=== PATIENT | male | born 1955 | race Caucasian/White ===

== ENCOUNTER 2018-07-21 05:04 | Emergency (ER) | payer OTHER, SELFPAY ==
[2018-07-21 05:10] VITALS: BP 119/69; PULSE 81; RESP 16; TEMP 36.3; O2SAT 99; BMI 25.4
--- NOTE | 2018-07-21 05:12 | DI.RAD.S_ITS ---
PROCEDURE: XR CHEST 1V INDICATIONS: syncope, vomiting,diarrhea TECHNIQUE: One view of the chest was acquired. COMPARISON: [facility], , CHEST 1VW (PORTABLE), 04/07/2014, 13:36. FINDINGS: Surgical changes and devices: None. Lungs and pleura: No pleural effusions or pneumothorax. Lungs are clear. Mediastinum: Mediastinal contours appear normal. Heart size is normal. Bones and chest wall: No suspicious bony lesions. Overlying soft tissues appear unremarkable. IMPRESSION: No acute cardiopulmonary disease process. Dictated by: Sofya Mcclure MD, PhD on 07/21/2018 at 7:25 Approved by: Sofya Mcclure MD, PhD on 07/21/2018 at 7:26
--- NOTE | 2018-07-21 05:17 | ED_ITS ---
HPI - Syncope General Chief Complaint: Syncope Stated Complaint: Syncope Time Seen by Provider: 07/21/18 05:11 Source: patient and EMS Mode of arrival: EMS Limitations: no limitations History of Present Illness HPI narrative: This is a 62-year-old male comes to the emergency department. Patient states that this evening he woke up from sleep feeling very queasy and started having vomiting and diarrhea. He did not have any black or bloody stools. He did not have any abdominal pain but felt very nauseated. Patient denies any fevers. He denies any chest pain or shortness of breath. He states he has not had syncopal episodes in the past. He states he was in the bathroom he was sitting on the floor he just finished vomiting and was waiting in case he had vomited again. I states that he did feel anything coming on other than queasiness and nauseous but woke up and could hear his yelling at him with able to respond for about a minute. His states that she thought he was out for about 2 min. He states EMS thought it was about 1/2 to 1 min. Patient denies any headache with vision changes. Cough cold or congestion. He denies any urinary symptoms. He states that they had dinner tonight and had several gas , no on else that he is aware of his had similar symptoms. He did have about 5 alcoholic drinks this evening. He states his number of drinks can very aware anywhere from 2 or 3-7 depending on the night. Related Data Previous Rx's Medication Instructions Recorded clindamycin HCl 300 mg PO Q6H #40 cap 12/24/16 Review of Systems Review of Systems All systems reviewed & are unremarkable except as noted in HPI and below Constitutional Denies chills and Denies fever(s) ENT Ears, Nose, Mouth, and Throat: Denies neck pain Cardiovascular Denies chest pain, Reports syncope, Denies edema, Denies irregular heart rhythm , Denies radiating jaw, neck or arm pain, Denies palpitations, Denies dyspnea and Denies dyspnea on exertion Respiratory Denies chest congestion, Denies cough, Denies excessive phlegm production, Denies dyspnea and Denies dyspnea on exertion Gastrointestinal Gastrointestinal: Denies abdominal pain, Denies melena, Denies hematochezia, Denies change in bowel habits, Reports diarrhea, Reports nausea and Reports vomiting Genitourinary Denies difficulty with ejaculations, Denies dysuria, Denies flank pain, Denies urinary frequency and Denies urinary hesitancy Musculoskeletal Denies back pain and Denies neck pain Integumentary/Breasts Denies rash Neurologic Reports syncope Endocrine Denies palpitations PFSH Medical History Obstructive sleep apnea of adult (Chronic) Primary insomnia (Chronic) Snoring (Resolved) Hyperlipidemia (Chronic) Hypertension (Chronic) Ischemic heart disease (Chronic) Surgical History History of heart artery stent (Acute) Family History Brother Hx of CABG Social History Smoking Status: Never smoker alcohol intake: current substance use type: does not use Exam Narrative Exam Narrative: GEN: well nourished, well appearing male, alert and oriented x 3, patient appears to be in no acute distress. HEENT: Atraumatic, pupils are equal round reactive to light, extraocular movements are intact, nares are clear, Throat is clear without any exudates, erythema, tonsillar enlargement or uvular deviation HEART: Regular rate and rhythm without murmur, clicks, rubs. Pulses are equal in upper and lower extremities LUNGS:Lungs clear to auscultation, no wheezes, rales, crackles, chest moves symmetrically ABD:bowel sounds normal, soft, non-tender, no guarding, rebound, rigidity, no masses noted, no hepatosplenomegaly, no bruit or pulsatile mass. :No CVA tenderness MSCL: Non-tender, no muscle atrophy, muscles strength 5/5 upper and lower extremities, full range of motion, normal gait NEURO:CN 2-12 intact, sensation normal Initial Vital Signs Initial Vital Signs: Vital Signs Temperature 97.4 F L 07/21/18 05:10 Pulse Rate 81 07/21/18 05:10 Respiratory Rate 16 07/21/18 05:10 Blood Pressure 119/69 07/21/18 05:10 Pulse Oximetry 99 07/21/18 05:10 Course Orders Ordered: Discontinued Medications Sodium Chloride (Normal Saline 0.9%) 1,000 mls @ 1,000 mls/hr IV BOLUS ONE Stop: 07/21/18 06:10 Last Infusion: 07/21/18 06:44 Dose: 0 mls/hr Admin: 07/21/18 05:36 Dose: 1,000 mls/hr Vital Signs - 8 hr 07/21/18 05:10 07/21/18 05:28 Temperature 97.4 F L Pulse Rate 81 Pulse Rate [Orthostatic Lying] 67 Pulse Rate [Orthostatic Sitting] 70 Pulse Rate [Orthostatic Standing] 72 Respiratory Rate 16 Blood Pressure 119/69 Blood Pressure [Orthostatic Lying] 111/64 Blood Pressure [Orthostatic Sitting] 113/61 Blood Pressure [Orthostatic Standing] 118/68 Pulse Oximetry 99 MDM - Syncope Lab Data Result diagrams: 07/21/18 04:59 07/21/18 04:59 Lab Results 07/21/18 07/21/18 07/21/18 Range/Units 04:59 04:59 04:59 WBC 9.6 (4.5-11.0) X10^3/uL RBC 4.54 (4.5-5.9) X10^6/uL Hgb 14.7 (13.5-17.5) g/dL Hct 43.3 (41-53) % MCV 95.5 (80-100) fL MCH 32.4 (26-34) PG MCHC 34.0 (30-36) % RDW 13.3 (11.6-14.8) % Plt Count 217 (150-400) X10^3/uL Neut % (Auto) 68.6 (50-75) % Lymph % (Auto) 19.5 L (25-40) % [place] % (Auto) 9.7 (3-14) % Eos % (Auto) 1.8 L (2-4) % Baso % (Auto) 0.4 (0-2) % Neut # (Auto) 6600 H (9404-8806) /uL PT 9.8 L (10.1-12.7) SECONDS INR 0.9 (0.9-1.3) Sodium 138 (137-145) mmol/L Potassium 3.7 (3.4-5.1) mmol/L Chloride 95 L (98-107) mmol/L Carbon Dioxide 29 (22-32) mmol/L BUN 21 H (9-20) mg/dL Creatinine 0.80 (0.66-1.25) mg/dL Estimated GFR > 60.0 (>60) mL/min BUN/Creatinine Ratio 26.3 H (6-22) Glucose 99 (80-110) mg/dL Calcium 9.5 (8.4-10.2) mg/dL Total Bilirubin 0.4 (0.2-1.3) mg/dL AST 40 (17-59) IU/L ALT 43 (21-72) IU/L Alkaline Phosphatase 54 (38-126) U/L Total Creatine Kinase 137 (55-170) U/L CK-MB (CK-2) 3.54 H (<2.37) ng/mL CK-MB (CK-2) Rel Index 2.6 (1.5-5.0) % Troponin I 0.021 (0.01-0.034) ng/mL Total Protein 7.5 (6.3-8.2) g/dL Albumin 4.7 (3.5-5.0) g/dL Globulin 2.8 (1.7-4.1) g/dL Albumin/Globulin Ratio 1.7 (1.0-2.8) Imaging Data Chest x-ray: Attestation: I personally reviewed and interpreted this imaging study as follows: My impression: No acute process, no infiltrate, no pneumothorax. Mediastinum does not appear widened. Cardiac silhouette appears normal. ECG Data Attestation: I personally reviewed and interpreted this ECG as follows: Prior ECG tracings: available for review Interpretation: Sinus rhythm with rate of 66, pr of 166, qrs of [address] qtc [address] NO [address] elevation/depression noted. Patient does have V1V2 Q wave. Lead III appears changed. EKG otherwise s similar to prior from 04/07/14 MDM Narrative Medical decision making narrative: Patient's CBC, coags and CMP appear appropriate. Patient's chest x-ray shows no acute process. EKG does not show any major changes. Appears similar to 04/07/2014. Patient's orthostatics were negative in the department. Patient clarified that he actually had vomiting but did not have any diarrhea just felt like he might have some. His states that he had been sitting on the floor for about 10 min after throwing up went to stand up had to sit back down and then passed out for a minute or 2, he slumped against the shower and did not hit his head. Patient and states that he did not hit his head. Patient feel ing much better. Orthostatics negative and patient asymptomatic. Patient plan for follow up but discussed reasons to return and in particular if recurrent symptoms. Discharge Plan Departure Patient Disposition: Home Clinical Impression: Syncope Discharge Date/Time: 07/21/18 06:46 Interventions: ED Discharge Assessment Last Done: 07/21/18 06:45 Instructions: DI for Syncope in Adults (Fainting) Activity Restrictions/Additional Instructions: Follow-up with your primary care provider in the next 2-3 days for recheck. Return to the emergency department for recurrent symptoms, if you have recurrent episodes of passing out, chest pain, shortness of breath, persistent vomiting, black or bloody stools, abdominal pain or other new or concerning symptoms You may continue home medications as prescribed. Prescriptions: No Action clindamycin HCl 300 MG capsule 300 mg PO Q6H Qty: 40 RF: 0
[2018-07-21 05:19] LABS: Add Manual Diff / Slide Review NO; Basophils Percent Auto 0.4 % (0-2); Eosinophils Percent Auto 1.8 % (2-4); Hematocrit 43.3 % (41-53); Hemoglobin 14.7 g/dL (13.5-17.5); Lymphocytes Percent Auto 19.5 % (25-40); Mean Corpuscular Hemoglobin 32.4 PG (26-34); Mean Corpuscular Volume 95.5 fL (80-100); Monocytes Percent Auto 9.7 % (3-14); Neutrophils Absolute Auto 6600 /uL (3000-5900); Neutrophils Percent Auto 68.6 % (50-75); Platelet Count 217 X10^3/uL (150-400); Red Blood Cell Count 4.54 X10^6/uL (4.5-5.9); Red Cell Distribution Width 13.3 % (11.6-14.8); White Blood Cell Count 9.6 X10^3/uL (4.5-11.0)
[2018-07-21 05:20] LABS: INR 0.9 (0.9-1.3); Prothrombin Time 9.8 SECONDS (10.1-12.7)
[2018-07-21 05:24] LABS: Alanine Aminotransferase 43 IU/L (21-72); Albumin 4.7 g/dL (3.5-5.0); Albumin Globulin Ratio 1.7 (1.0-2.8); Alkaline Phosphatase 54 U/L (38-126); Aspartate Aminotransferase 40 IU/L (17-59); BUN Creatinine Ratio 26.3 (6-22); Bilirubin Total 0.4 mg/dL (0.2-1.3); Blood Urea Nitrogen 21 mg/dL (9-20); Calcium 9.5 mg/dL (8.4-10.2); Carbon Dioxide 29 mmol/L (22-32); Chloride 95 mmol/L (98-107); Creatine Kinase 137 U/L (55-170); Estimated Glomerular Filt Rate > 60.0 mL/min (>60); Globulin 2.8 g/dL (1.7-4.1); Glucose 99 mg/dL (80-110); HEMOLYSIS 38 (0-50); Potassium 3.7 mmol/L (3.4-5.1); Sodium 138 mmol/L (137-145); Total Protein 7.5 g/dL (6.3-8.2)
[2018-07-21 05:28] VITALS: BP 111/64; BP 113/61; BP 118/68; PULSE 67; PULSE 70; PULSE 72
[2018-07-21 05:35] LABS: Troponin I 0.021 ng/mL (0.01-0.034)
[2018-07-21] MEDS: SODIUM CHLORIDE 0.9% 1,000 ML 1000 ML IV (05:36)
[2018-07-21 05:39] LABS: CKMB % Relative Index 2.6 % (1.5-5.0); Creatine Kinase MB 3.54 ng/mL (<2.37)
[2018-07-21 06:30] VITALS: BP 115/59; PULSE 79; RESP 16; O2SAT 100
== END 2018-07-21 06:46 | disposition home or self-care (01) ==
PROVIDERS: Emergency Provider Emergency Medicine
DX: R55 Syncope and collapse (principal)
CPT/HCPCS: 71045; 80053; 82550; 82553; 84484; 85025; 85610; 93005; 96360; 99283; 99285

== ENCOUNTER 2020-07-14 09:28 | Emergency (ER) | payer OTHER, MEDICARE, SELFPAY ==
[2020-07-14] VITALS (11 sets, daily range): BP systolic 132–160; BP diastolic 69–85; PULSE 67–89; RESP 12–18; TEMP 36.7; O2SAT 95–100; BMI 25.6
--- NOTE | 2020-07-14 09:41 | DI.RAD.S_ITS ---
PROCEDURE: XR SHOULDER LT MIN 2V INDICATIONS: fell and mybe brole arm TECHNIQUE: 3 views of the shoulder were acquired. COMPARISON: [facility], CR, XR SHOULDER LT 1V, 07/14/2020, 11:00. FINDINGS: Bones: Anterior inferior dislocation. There is a Hill-Sachs deformity. Irregularity of the inferior glenoid. No suspicious bony lesions. Visualized ribs appear intact. Soft tissues: No suspicious soft tissue calcifications. IMPRESSION: Anterior inferior dislocation of the glenohumeral joint. There is a Hill-Sachs deformity of the humeral head. Irregularity of the inferior glenoid is suspicious for Bank[place] lesion. Dictated by: Mitchell Davis M.D. on 07/14/2020 at 11:45 Approved by: Mitchell Davis M.D. on 07/14/2020 at 11:52
--- NOTE | 2020-07-14 09:41 | ED.UPPEXIN ---
HPI - Extremity Injury (Upper) General Chief Complaint: Extremity Injury, Upper Stated Complaint: fell and maybe broken arm left Time Seen by Provider: 07/14/20 09:32 Source: patient Mode of arrival: Ambulatory History of Present Illness HPI narrative: Patient injured his left shoulder at work. This morning just prior to arrival was stepping onto a boat and slipped and left shoulder hit a boat seat. Denies denies hitting head or neck. Denies any other injuries. Patient is right handed. No recent orthopedic surgery. No current regular orthopedist. Complains of pain in left shoulder. No numbness tingling or weakness. complaint: injury to: left and shoulder Related Data Home Medications Medication Instructions Recorded Confirmed Respironics RemStar CPAP #1 ea 01/14/19 07/15/19 Allergies Allergy/AdvReac Type Severity Reaction Status Date / Time No Known Drug Allergies Allergy Unverified 07/15/19 13:33 Review of Systems Review of Systems Narrative: GENERAL: Denies chills, fatigue, malaise, fever, sweats. HEENT: Denies sinus pain, ear pain, sore throat, difficulty swallowing RESPIRATORY: Denies dyspnea, cough CARDIOVASCULAR: Denies chest pain, palpitations, edema, GASTROINTESTINAL: Denies nausea, vomiting, abdominal pain, diarrhea, constipation, melena. : Denies dysuria, frequency, hematuria MUSCULOSKELETAL: denies muscle complains of bony pain SKIN: Denies rash, skin lesions NEUROLOGIC: Denies weakness, headache, numbness, change in speech, confusion PSYCHIATRIC: No SI or HI or hallucinations ROS Unobtainable: All systems reviewed & are unremarkable except as noted in HPI and below Patient History Medical History Hyperlipidemia (Chronic) Hypertension (Chronic) Ischemic heart disease (Chronic) Obstructive sleep apnea of adult (Chronic) Primary insomnia (Resolved) Snoring (Inactive) Surgical History History of heart artery stent (Acute) Family History Brother Hx of CABG Social History marital status: details: to Misty, lives in [place] household members: spouse lives independently: Yes caregiver/support person: No housing: house coral/hoahaoism: Qu[employer] Smoking Status: Never smoker alcohol intake: current substance use type: does not use Smoking Status: Never smoker alcohol intake frequency: 3 or more drinks per day Substance Use Type: does not use Exam Narrative Exam Narrative: GENERAL: patient appears stated age. Well-nourished, well-developed patient, in no distress, not toxic not dyspneic HEAD: Normocephalic. EYES: Pupils equal round and reactive. No scleral icterus. No injection no discharge ENT: Mucous membranes moist. No drooling no tongue elevation no trismus no malocclusion NECK: Trachea midline. Non tender CARDIOVASCULAR: Regular rate and rhythm without murmurs, gallops, or rubs. RESPIRATORY: Clear to auscultation. Breath sounds equal bilaterally. No wheezes, rales, or rhonchi. GASTROINTESTINAL: Abdomen soft, non-tender, nondistended. EXTREMITIES: Shirt removed. There is deformity at the left shoulder/drop-off. Nontender wrist elbow and hand. Limb is warm soft and pink. Strong lamp replacer in radial pulse with light touch intact to shoulder and fingertips and thumb. BACK: Nontender without deformity or crepitance. No flank tenderness. NEURO: AOx4. SKIN: Warm and dry PSYCH: Not anxious, is cooperative Initial Vital Signs Initial Vital Signs: Vital Signs Temperature 98.0 F 07/14/20 09:36 Pulse Rate 89 07/14/20 09:36 Respiratory Rate 12 07/14/20 09:36 Blood Pressure 160/76 H 07/14/20 09:36 Pulse Oximetry 100 07/14/20 09:36 Procedures Orthopedic Joint Reduction Joint #1: Time Out Performed: Yes Side: left Joint Reduction Location: shoulder Analgesia: none and other (Patient agreed: Use of pain medication Dilaudid) Shoulder Technique Used (if applicable): traction/counter-traction Technique used: traction/counter-traction Post-reduction neuro exam: intact Post-reduction vascular: intact Post Reduction X-Ray Obtained: Yes Post Reduction X-Ray Results: reduced Patient Tolerated Procedure: Well Additional Comments: Applied sling Course Course Course Narrative: No complications with reduction. No hypotension or hypoxia. Patient remained awake alert entire procedure with minimal pain 09/18 Orders Ordered: ED Orders 07/14/20 09:41 XR shoulder LT min 2V Stat 07/14/20 10:58 XR shoulder LT 1V Stat Discontinued Medications Hydromorphone HCl (Dilaudid) 1 mg IV NOW ONE Stop: 07/14/20 09:40 Last Admin: 07/14/20 09:45 Dose: 1 mg Documented by: JANE Hydromorphone HCl (Dilaudid) 1 mg IV NOW ONE Stop: 07/14/20 10:26 Last Admin: 07/14/20 10:43 Dose: 1 mg Documented by: JANE Hydromorphone HCl (Dilaudid) 1 mg IV NOW ONE Stop: 07/14/20 10:46 Last Admin: 07/14/20 10:51 Dose: 1 mg Documented by: JANE Ondansetron HCl (Zofran) 4 mg IV NOW ONE Stop: 07/14/20 09:40 Last Admin: 07/14/20 09:46 Dose: 4 mg Documented by: JANE Reevaluation(s) Reevaluation #1: Patient feels much better after reduction. Time: 11:58 Vital Signs Vital signs: Vital Signs - 8 hr 07/14/20 09:36 07/14/20 10:30 07/14/20 10:43 Temperature 98.0 F Pulse Rate 89 69 67 Respiratory Rate 12 14 Blood Pressure 160/76 H 139/69 Pulse Oximetry 100 98 96 07/14/20 10:58 Temperature Pulse Rate 86 Respiratory Rate 18 Blood Pressure 146/76 H Pulse Oximetry 97 MDM - Extremity Injury (Upper) Differential Diagnosis Differential diagnosis: Likely dislocation of shoulder and fracture of humerus Imaging Data Extremity x-ray #1: Radiologist's Impression: [address] [address] XRay Report Signed Patient: Trevor Hernandez MMR#: [id number] : 4Acct:[id number] Age/Sex: 64 / MDate of Service: 07/14/20 Loc: ED Accession Number: [id number] Procedure: XR shoulder LT 1V Ordering Provider: Ethan Steve MD PROCEDURE: XR SHOULDER LT 1V INDICATIONS: Post reduction TECHNIQUE: Single AP views of the shoulder were acquired. COMPARISON: [facility], CR, XR SHOULDER LT MIN 2V, 07/14/2020, 8:58. FINDINGS: Bones: Status post interval reduction of previously dislocated left humeral head. Post reduction alignment appears anatomic on this single AP view. No fractures visualized. Degenerative changes of the left acromioclavicular joint. Acromioclavicular and coracoclavicular intervals are maintained. No suspicious bony lesions. Visualized ribs appear intact. Soft tissues: No suspicious soft tissue calcifications. IMPRESSION: Status post interval reduction of previously dislocated left humeral head back into anatomic alignment based on single AP view. No acute fracture seen. Dictated by: Tang Metz M.D. on 07/14/2020 at 10:23 Approved by: Tang Metz M.D. on 07/14/2020 at 10:25 [facility] Narrative Medical decision making narrative: Appropriate for discharge home and follow-up for workmen's comp. Will give referral to our on-call orthopedist. Not toxic at discharge. 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 Discharge Plan Departure Patient Disposition: Home Clinical Impression: Closed dislocation of left shoulder Instructions: DI for Shoulder Dislocation Activity Restrictions/Additional Instructions: Keep in sling until office recheck with Orthopedics. Did not raise left hand above your head. Call today for appointment for orthopedic office time for your shoulder. Return if worse if any questions or concerns. Prescriptions: No Action (DME) Respironics RemStar CPAP Qty: 1 RF: 0 Referrals: Rosana Velez MD [Primary Care Provider] - Naveen Guzman MD [Physician] - Stand Alone Forms: Work Release Note
[2020-07-14] MEDS: HYDROMORPHONE 1 MG INJ IV ×3 (09:45→10:51)
[2020-07-14] MEDS: ONDANSETRON 4 MG/2 ML INJ IV (09:46)
--- NOTE | 2020-07-14 10:52 | PC.NURSE ---
Asssited MD with reduction. Pt medicated with Dilaudid. Tolerated well.
--- NOTE | 2020-07-14 10:58 | DI.RAD.S_ITS ---
PROCEDURE: XR SHOULDER LT 1V INDICATIONS: Post reduction TECHNIQUE: Single AP views of the shoulder were acquired. COMPARISON: [facility], CR, XR SHOULDER LT MIN 2V, 07/14/2020, 8:58. FINDINGS: Bones: Status post interval reduction of previously dislocated left humeral head. Post reduction alignment appears anatomic on this single AP view. No fractures visualized. Degenerative changes of the left acromioclavicular joint. Acromioclavicular and coracoclavicular intervals are maintained. No suspicious bony lesions. Visualized ribs appear intact. Soft tissues: No suspicious soft tissue calcifications. IMPRESSION: Status post interval reduction of previously dislocated left humeral head back into anatomic alignment based on single AP view. No acute fracture seen. Dictated by: Tang Metz M.D. on 07/14/2020 at 10:23 Approved by: Tang Metz M.D. on 07/14/2020 at 10:25
== END 2020-07-14 12:26 | disposition home or self-care (01) ==
PROVIDERS: Emergency Provider Emergency Medicine; PCP Internal Medicine
DX: S43.005A Unspecified dislocation of left shoulder joint, initial encounter (principal); W01.198A Fall on same level from slipping, tripping and stumbling with subsequent striking against other object, initial encounter; Y99.0 Civilian activity done for income or pay
CPT/HCPCS: 36415; 73020; 73030; 96374; 96375; 96376; 99284; J1170; J2405

== ENCOUNTER → 2020-09-30 13:08 | Outpatient (CLI) | payer MEDICARE, OTHER, SELFPAY ==
[2020-09-30] MEDS: COVID-19 VACC #1, MRNA(MOD) 100 MCG/0.5 ML VIAL IM (13:16)
== END ==
PROVIDERS: PCP Internal Medicine; Visit Provider Internal Medicine
DX: Z23 Encounter for immunization (principal)
CPT/HCPCS: 0011A; 91301

== ENCOUNTER → 2020-10-28 14:16 | Outpatient (CLI) | payer MEDICARE, OTHER, SELFPAY ==
[2020-10-28] MEDS: COVID-19 VACC #2, MRNA(MOD) 100 MCG/0.5 ML VIAL IM (14:20)
== END ==
PROVIDERS: PCP Internal Medicine; Visit Provider Internal Medicine
DX: Z23 Encounter for immunization (principal)
CPT/HCPCS: 0012A; 91301

== ENCOUNTER → 2021-06-28 09:36 | Outpatient (CLI) | payer MEDICARE, OTHER, SELFPAY ==
[2021-06-28 10:59] LABS: COVID19 -Nasal RAPID Negative (Negative)
== END ==
PROVIDERS: PCP Internal Medicine; Referring Provider Surgery; Visit Provider Surgery
DX: Z01.812 Encounter for preprocedural laboratory examination (principal); Z20.822 Contact with and (suspected) exposure to COVID-19
CPT/HCPCS: 87635; C9803

== ENCOUNTER 2021-06-29 13:23 | Day surgery (SDC) | payer MEDICARE, OTHER, SELFPAY ==
--- NOTE | 2021-06-29 | PATH_ITS ---
[facility] Accession Number: [id number] . 01 Material submitted: . PART A: colon - ASCENDING COLON POLYP PART B: colon - DESCENDING COLON POLYP . 02 Diagnosis: A. Ascending Colon Polyp, Biopsy: Tubular adenoma. . B. Descending Colon Polyp, Biopsy: Tubular adenoma. MRV 07/04/2021 1036 Local . 02 Electronically signed: . Keron Dumont MD, PhD, Pathologist NPI- [id number] . 01 Gross description: . Part A: ASCENDING COLON POLYP: Received in formalin are 2 fragment(s) of castaneda, soft tissue measuring 0.4 x 0.2 x 0.2 cm to 0.1 x 0.1 x 0.1 cm submitted entirely in 1 cassette(s) Part B: DESCENDING COLON POLYP: Received in formalin are 2 fragment(s) of castaneda, soft tissue measuring 0.2 x 0.2 x 0.2 cm to 0.2 x 0.2 x 0.2 cm submitted entirely in 1 cassette(s) /JARET 06/30/2021 0447 Local . 02 Pathologist provided ICD-10: D12.2, D12.4 . 02 CPT . 357268, [id number] Performed at: 01 [facility] [address] [facility], [place], [place] [id number] MD Hayes Elliott MD Phone: [phone] Performed at: 02 [facility] [address] [place], [place] [id number] MD Viki Ramos MD Phone: [phone]
[2021-06-29 13:41] VITALS: BP 136/68; PULSE 61; RESP 15; TEMP 36.6; O2SAT 97; BMI 25.0
[2021-06-29] MEDS: LACTATED RINGERS 1,000 ML 200 ML IV (13:54)
[2021-06-29 13:55] VITALS: BMI 25.0
--- NOTE | 2021-06-29 14:28 | P.HP_ITS ---
History of Present Illness History of Present Illness Date Patient Seen: 06/29/21 Time Patient Seen: 14:28 Chief complaint: SDC Narrative: The patient presents for colorectal sreening. Previous colonoscopy 2010 demonstrated benign. No personal or family history of colon cancer. On further history denies any recent gastrointestinal symptoms. No nausea, vomiting, abdominal pain, loss of appetite, unexplained weight loss, change in bowel habits, diarrhea, constipation, melena, hematochezia, or bright red blood per rectum. 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) Obstructive sleep apnea of adult Primary insomnia Snoring Surgical History History of heart artery stent Family & Social History Family History Brother Hx of CABG Social History: household members spouse lives independently Yes caregiver/support person No Tobacco & Substance use: Smoking Status Never smoker alcohol intake current alcohol intake frequency 3 or more drinks per day Substance Use Type does not use Meds Home Medications and Allergies Home Medications Medication Instructions Recorded Confirmed Type amlodipine 5 mg tablet 5 mg PO DAILY 12/21/20 05/17/21 History aspirin 81 mg tablet 81 mg PO DAILY 12/21/20 05/17/21 History atorvastatin 80 mg tablet 80 mg PO DAILY 12/21/20 05/17/21 History cetirizine 10 mg capsule (Zyrtec) 10 mg PO DAILY PRN MDD 30 mg 12/21/20 05/17/21 History chlorthalidone 25 mg tablet 25 mg PO DAILY 12/21/20 05/17/21 History lisinopril 40 mg tablet 40 mg PO DAILY 12/21/20 05/17/21 History nitroglycerin 0.4 mg sublingual 0.4 mg SUBLINGUAL ONCE PRN 12/21/20 05/17/21 History tablet pantoprazole 20 mg tablet,delayed 20 mg PO DAILY 12/21/20 05/17/21 History release [employer] Auto CPAP 05/17/21 05/17/21 History sodium,potassium,mag sulfates 17.5 See Rx Instructions PO .COMPLEX 05/25/21 Rx gram-3.13 gram-1.6 gram oral soln #354 ml (Suprep Bowel Prep Kit) Allergies Allergy/AdvReac Type Severity Reaction Status Date / Time No Known Drug Allergies Allergy Unverified 05/17/21 09:02 Exam Vital Signs (past 8 hours): - 06/29/21 13:41 Temperature 97.9 F Pulse Rate 61 Respiratory Rate 15 Blood Pressure 136/68 Pulse Oximetry 97 Oxygen Delivery Method Room Air Narrative Exam Narrative: Constitutional-he is oriented to person, place and time. No apparent distress Cardiovascular- regular rate, no peripheral edema Pulmonary-unlabored respiratory effort, no audible wheezing Abdominal-soft, non-tender, non-distended Musculoskeletal-no cyanosis or clubbing Neurological-nonfocal, normal strength throughout, Skin-warm and dry Assessment & Plan Assessment and plan (1) Personal history of colonic polyps: Status: Acute Assessment & Plan narrative: The patient requires colorectal screening and colonoscopy is recommended. Technical details were discussed. Risks, benefits, alternatives explained. Risks including but not limited to myocardial infarction, aspiration, bleeding, pain, missed lesion, incomplete examination, need for further radiographic studies, colonic perforation, and need for major abdominal surgery were discussed. All questions were answered to their satisfaction, and they are in agreement with this plan. Time Spent With Patient Critical Care time: I spent a total of [] minutes of critical care time on this patient's care today; this time is exclusive of procedural time.
--- NOTE | 2021-06-29 14:54 | P.OP.COLON_ITS ---
Operative Date/Time/Diagnoses Date of procedure: 06/29/21 Time of procedure: 14:54 Pre-op diagnosis: personal history of colonic polyps Post-op diagnosis: same Procedure & Clinicians Study performed: Colonoscopy Same procedure as scheduled: Yes Indications: Personal history of colonic polyp Surgeon: Nando Lujan Procedure Notes Procedure in detail: Medications: Conscious sedation using 4mg IV midazolam and 100mcg IV of fentanyl The history and physical was performed/updated and the patient is ASA class is 2. The procedure was discussed in detail with the patient. Potential risks complications including infection, bleeding, missed diagnosis, perforation, need for surgery, and were explained. Their questions were answered and informed consent was obtained. Patient was brought to the procedure room and placed standard monitoring equipment. The patient's vital signs were monitored continuously throughout the entire procedure. Prior to starting time-out was performed. The patient was placed in the left lateral recumbent position. Procedural sedation was administered. Examination began with a thorough inspection of the perianal area there was no evidence of fissures, fistulae, external hemorrhoids or cutaneous m alignancy. The colonoscopy scope was then placed into the anal canal and was advanced to the cecum, which was identified by the ileocecal valve, the appendiceal orifice and the confluence of the taenia. The scope was then slowly withdrawn examining colon thoroughly in all directions, irrigating it of any residual stool. FINDINGS 1. Less than 1 cm polyp ascending colon removed biopsy forceps 2. Less than 1 cm polyp descending colon removed biopsy forceps The patient tolerated the procedure well. They will be discharged once criteria are met. The prep was of fair quality. The withdrawl time was 10 minutes. The sedation time was 20minutes. Specimen(s): other (Ascending and descending colon polyps) Complications: none Impression: Colonic polyps Post-procedure Recommendations: Colonoscopy in 5 years Disposition: same day surgery
[2021-06-29] MEDS: MIDAZOLAM 5 MG/5 ML VIAL IV (14:55)
[2021-06-29] MEDS: fentaNYL 250 MCG/5 ML INJ IV (14:55)
[2021-06-29 14:57] VITALS: BP 129/65; PULSE 75; RESP 21; TEMP 36.8; O2SAT 99
[2021-06-29 15:02] VITALS: BP 139/67; PULSE 68; RESP 17; TEMP 36.8; O2SAT 100
== END 2021-06-29 15:11 | disposition home or self-care (01) ==
PROVIDERS: PCP Internal Medicine; Referring Provider Surgery; Visit Provider Surgery
PROC: 0DJD8ZZ Inspection of Lower Intestinal Tract, Via Natural or Artificial Opening Endoscopic (ICD-10-PCS; CPT 45378; principal; 2021-06-29 14:30)
DX: Z12.11 Encounter for screening for malignant neoplasm of colon (principal); Z86.010 Personal history of colon polyps; I10 Essential (primary) hypertension; G47.33 Obstructive sleep apnea (adult) (pediatric); K21.9 Gastro-esophageal reflux disease without esophagitis; D12.2 Benign neoplasm of ascending colon; D12.4 Benign neoplasm of descending colon
CPT/HCPCS: 45380; 99152; J2250; J3010

== ENCOUNTER → 2022-03-14 14:18 | Outpatient (CLI) | payer MEDICARE, OTHER, SELFPAY ==
[2022-03-14 14:54] LABS: Add Manual Diff / Slide Review NO; Basophils Absolute Auto 0 /uL (0-100); Basophils Percent Auto 0.5 % (0-2); Eosinophils Absolute Auto 100 /uL (0-450); Eosinophils Percent Auto 1.3 % (2-4); Hematocrit 38.6 % (41-53); Hemoglobin 13.1 g/dL (13.5-17.5); Lymphocytes Absolute Auto 1300 /uL (1100-4500); Lymphocytes Percent Auto 20.9 % (25-40); Mean Corpuscular Hemoglobin 33.6 PG (26-34); Mean Corpuscular Volume 98.7 fL (80-100); Monocytes Absolute Auto 500 /uL (0-900); Monocytes Percent Auto 7.3 % (3-14); Neutrophils Absolute Auto 4400 /uL (1500-7000); Platelet Count 164 X10^3/uL (150-400); Red Blood Cell Count 3.91 X10^6/uL (4.5-5.9); Red Cell Distribution Width 14.8 % (11.6-14.8); White Blood Cell Count 6.3 X10^3/uL (4.5-11.0)
[2022-03-14 15:09] LABS: Alanine Aminotransferase 29 IU/L (<50); Albumin 4.3 g/dL (3.5-5.0); Albumin Globulin Ratio 1.7 (1.0-2.8); Alkaline Phosphatase 60 U/L (38-126); Aspartate Aminotransferase 31 IU/L (17-59); BUN Creatinine Ratio 17.8 (6-22); Bilirubin Total 0.5 mg/dL (0.2-1.3); Blood Urea Nitrogen 16 mg/dL (9-20); C-Reactive Protein Quant < 0.5 mg/dL (<1.0); Calcium 9.2 mg/dL (8.4-10.2); Carbon Dioxide 27 mmol/L (22-32); Chloride 101 mmol/L (98-107); Estimated Glomerular Filt Rate > 60 mL/min (>60); Globulin 2.6 g/dL (1.7-4.1); Glucose 120 mg/dL (80-110); HEMOLYSIS < 15 (0-50); Sodium 135 mmol/L (137-145); Total Protein 6.9 g/dL (6.3-8.2)
[2022-03-14 15:10] LABS: Erythrocyte Sedimentation Rate 7 MM/HR (0-15)
== END ==
PROVIDERS: PCP Student in an Organized Health Care Education/Training Program; Referring Provider Specialist/Technologist Athletic Trainer; Visit Provider Specialist/Technologist Athletic Trainer
DX: R77.8 Other specified abnormalities of plasma proteins (principal)
CPT/HCPCS: 36415; 80053; 85025; 85651; 86140

== ENCOUNTER → 2022-03-21 13:21 | Outpatient (CLI) | payer MEDICARE, OTHER, SELFPAY ==
--- NOTE | 2022-03-21 13:24 | DI.RAD.S_ITS ---
PROCEDURE: XR BONE SURVEY INDICATIONS: assess for myeloma lesions TECHNIQUE: Multiple views obtained of various bony structures as described below. COMPARISON: None. FINDINGS: Skull (lateral): No suspicious bony lesions. No fractures. Thoracic spine (AP, lateral): No suspicious bony lesions. No acute vertebral body compression fractures. Lumbar spine (AP, lateral): No suspicious bony lesions. No acute vertebral body compression fractures. Mild endplate osteophytes. Mild diffuse disc height loss and moderate disc height loss L1-2. Heavy atherosclerotic calcification of the aorta. Pelvis (AP): No suspicious bony lesions. No fractures. Overlying soft tissues appear unremarkable. Right and left humeri (AP): No suspicious bony lesions. No fractures. Overlying soft tissues appear unremarkable. Right and left femurs (AP): No suspicious bony lesions. No fractures. Overlying soft tissues appear unremarkable. IMPRESSION: 1. No visible lytic lesions. If there is continued concern for subtle myeloma lesion, consider bone Marrow MRI. 2. Mild lumbar degeneration. 3. Atherosclerotic aortic calcification. Dictated by: Yajaira Machado M.D. on 03/21/2022 at 17:03 Approved by: Yajaira Machado M.D. on 03/21/2022 at 17:07
[2022-03-21 14:50] LABS: Add Manual Diff / Slide Review NO; Basophils Absolute Auto 0 /uL (0-100); Basophils Percent Auto 0.5 % (0-2); Eosinophils Absolute Auto 100 /uL (0-450); Eosinophils Percent Auto 1.5 % (2-4); Hematocrit 38.7 % (41-53); Hemoglobin 13.3 g/dL (13.5-17.5); Lymphocytes Absolute Auto 1400 /uL (1100-4500); Lymphocytes Percent Auto 23.1 % (25-40); Mean Corpuscular HGB Conc 34.3 % (30-36); Mean Corpuscular Hemoglobin 33.8 PG (26-34); Mean Corpuscular Volume 98.5 fL (80-100); Monocytes Absolute Auto 300 /uL (0-900); Monocytes Percent Auto 5.7 % (3-14); Neutrophils Absolute Auto 4100 /uL (1500-7000); Neutrophils Percent Auto 69.2 % (50-75); Platelet Count 171 X10^3/uL (150-400); Red Blood Cell Count 3.93 X10^6/uL (4.5-5.9); Red Cell Distribution Width 14.9 % (11.6-14.8); White Blood Cell Count 5.9 X10^3/uL (4.5-11.0)
[2022-03-21 14:57] LABS: Appearance Urine UA CLEAR; Bilirubin Urine UA NEGATIVE (NEGATIVE); Color Urine UA YELLOW; Glucose Urine UA NEGATIVE (Negative); Ketones Urine UA NEGATIVE (NEGATIVE); Leukocyte Esterase Urine UA NEGATIVE (NEGATIVE); Nitrite Urine UA NEGATIVE (Negative); Occult Blood Urine UA NEGATIVE (Negative); Protein Urine UA NEGATIVE (Negative); Urobilinogen Urine UA 0.2 E.U./dL (0.2)
[2022-03-21 15:07] LABS: Bacteria Urine None Seen; Culture Indicated Urine Cult Not Indicated; RBC Urine None Seen (0-5/HPF); Squamous Epithelial Cell Urine 0-1 /HPF (0-5/HPF); WBC Urine 0-1/HPF (0-5/HPF)
[2022-03-21 15:07] LABS: Alanine Aminotransferase 30 IU/L (<50); Albumin 4.4 g/dL (3.5-5.0); Alkaline Phosphatase 55 U/L (38-126); Aspartate Aminotransferase 34 IU/L (17-59); BUN Creatinine Ratio 19.3 (6-22); Bilirubin Total 0.5 mg/dL (0.2-1.3); Blood Urea Nitrogen 17 mg/dL (9-20); Carbon Dioxide 24 mmol/L (22-32); Chloride 102 mmol/L (98-107); Estimated Glomerular Filt Rate > 60 mL/min (>60); Globulin 2.6 g/dL (1.7-4.1); Glucose 112 mg/dL (80-110); Potassium 3.9 mmol/L (3.4-5.1); Sodium 138 mmol/L (137-145)
[2022-03-21 15:08] LABS: Albumin Globulin Ratio 1.7 (1.0-2.8); HEMOLYSIS < 15 (0-50)
[2022-03-22 14:12] LABS: Free Lambda Lt Chains,Serum 15.1 mg/L (5.7-26.3)
[2022-03-23 13:10] LABS: Immunoglobulin A, Serum 179 mg/dL (61-437); Immunoglobulin G,Serum 907 mg/dL (603-1613); Immunoglobulin M, Serum 53 mg/dL (20-172)
[2022-03-23 14:10] LABS: Albumin 4.1 g/dL (2.9-4.4); Alpha-1-Globulin 0.3 g/dL (0.0-0.4); Alpha-2-Globulin 0.6 g/dL (0.4-1.0); Gamma Globulin 0.9 g/dL (0.4-1.8); Globulin Total 2.4 g/dL (2.2-3.9); Protein, Total 6.5 g/dL (6.0-8.5)
[2022-03-28 10:09] LABS: IGA 179; IGG 907
[2022-03-28 10:10] LABS: IGM 53
== END ==
PROVIDERS: PCP Student in an Organized Health Care Education/Training Program; Referring Provider Internal Medicine Medical Oncology; Visit Provider Internal Medicine Medical Oncology
DX: D47.2 Monoclonal gammopathy (principal); M47.816 Spondylosis without myelopathy or radiculopathy, lumbar region; I70.0 Atherosclerosis of aorta
CPT/HCPCS: 36415; 77075; 80053; 81001; 82784; 83883; 84155; 84165; 85025; 86334; 86335

== ENCOUNTER → 2022-03-23 10:57 | Outpatient (CLI) | payer MEDICARE, OTHER, SELFPAY ==
[2022-03-27 12:11] LABS: M-Spike % Not Observed % (Not Observed); Protein, Total, 24 hr urine 141 mg/24 hr (30-150); Total Urine Protein 4.7 mg/dL (Not Estab.)
== END ==
PROVIDERS: PCP Student in an Organized Health Care Education/Training Program; Referring Provider Internal Medicine Medical Oncology; Visit Provider Internal Medicine Medical Oncology
DX: D47.2 Monoclonal gammopathy (principal)
CPT/HCPCS: 84156; 84166

== ENCOUNTER → 2022-07-17 11:53 | Outpatient (CLI) | payer MEDICARE, OTHER, SELFPAY ==
[2022-07-17 12:47] LABS: Add Manual Diff / Slide Review NO; Basophils Absolute Auto 0 /uL (0-100); Basophils Percent Auto 0.5 % (0-2); Eosinophils Absolute Auto 100 /uL (0-450); Hematocrit 37.9 % (41-53); Hemoglobin 12.8 g/dL (13.5-17.5); Lymphocytes Absolute Auto 1100 /uL (1100-4500); Lymphocytes Percent Auto 19.3 % (25-40); Mean Corpuscular HGB Conc 33.9 % (30-36); Mean Corpuscular Hemoglobin 34.7 PG (26-34); Mean Corpuscular Volume 102.3 fL (80-100); Monocytes Absolute Auto 300 /uL (0-900); Monocytes Percent Auto 5.6 % (3-14); Neutrophils Absolute Auto 4200 /uL (1500-7000); Neutrophils Percent Auto 73.6 % (50-75); Platelet Count 191 X10^3/uL (150-400); Red Cell Distribution Width 15.1 % (11.6-14.8); White Blood Cell Count 5.7 X10^3/uL (4.5-11.0)
[2022-07-17 13:09] LABS: Erythrocyte Sedimentation Rate 7 MM/HR (0-15)
[2022-07-17 13:25] LABS: Alanine Aminotransferase 39 IU/L (<50); Albumin 4.1 g/dL (3.5-5.0); Albumin Globulin Ratio 1.6 (1.0-2.8); Alkaline Phosphatase 62 U/L (38-126); Aspartate Aminotransferase 36 IU/L (17-59); BUN Creatinine Ratio 18.4 (6-22); Bilirubin Total 0.6 mg/dL (0.2-1.3); Blood Urea Nitrogen 16 mg/dL (9-20); C-Reactive Protein Quant < 0.5 mg/dL (<1.0); Calcium 9.1 mg/dL (8.4-10.2); Carbon Dioxide 26 mmol/L (22-32); Chloride 103 mmol/L (98-107); Estimated Glomerular Filt Rate > 60 mL/min (>60); Globulin 2.6 g/dL (1.7-4.1); Glucose 105 mg/dL (80-110); HEMOLYSIS < 15 (0-50); Potassium 4.2 mmol/L (3.4-5.1); Sodium 137 mmol/L (137-145); Total Protein 6.7 g/dL (6.3-8.2)
== END ==
PROVIDERS: PCP Student in an Organized Health Care Education/Training Program; Referring Provider Specialist/Technologist Athletic Trainer; Visit Provider Specialist/Technologist Athletic Trainer
DX: L40.50 Arthropathic psoriasis, unspecified (principal)
CPT/HCPCS: 36415; 80053; 85025; 85651; 86140

== ENCOUNTER 2022-11-08 14:44 | Emergency (ER) | payer MEDICARE, OTHER, SELFPAY ==
[2022-11-08 15:17] VITALS: BP 168/74; PULSE 74; RESP 16; TEMP 37.3; O2SAT 96; BMI 26.4
[2022-11-08] MEDS: OXYMETAZOLINE NASAL SPRAY 15 ML 2 SPRAYS NASAL (15:25)
--- NOTE | 2022-11-08 16:12 | ED.EPISTAXIS ---
HPI - Epistaxis General Chief complaint: Nasal Problem Stated complaint: Nose won't stop bleeding Time Seen by Provider: 11/08/22 15:51 Source: patient Mode of arrival: Ambulatory History of Present Illness HPI Narrative: This is a pleasant 67-year-old gentleman who presents to the emergency department with left-sided epistaxis that started at 14:15 today unprovoked when he bent over to pick something up. Patient wears a CPA at night P, states for the last 2 weeks he is had some dried blood in his nose when he blows his nose in the morning. He denies recent illness, denies recent trauma, states that the bleeding just kept coming from his left naris and so he decided to come in. He denies dizziness, lightheadedness, anticoagulation at baseline, states that he had a history of a cardiac stent in 2013 but was off anticoagulants by 2015. Related Data Home Medications Medication Instructions Recorded Confirmed amlodipine 5 mg tablet 5 mg PO DAILY for high BP 12/21/20 10/10/22 aspirin 81 mg tablet 81 mg PO DAILY for CV prophylaxis 12/21/20 10/10/22 atorvastatin 80 mg tablet 80 mg PO DAILY 12/21/20 10/10/22 chlorthalidone 25 mg tablet 25 mg PO DAILY diuretic for high BP 12/21/20 10/10/22 lisinopril 40 mg tablet 40 mg PO DAILY 12/21/20 10/10/22 nitroglycerin 0.4 mg sublingual 0.4 mg sublingual ONCE PRN chest 12/21/20 10/10/22 tablet pain pantoprazole 20 mg tablet,delayed 20 mg PO DAILY on empty stomach 12/21/20 10/10/22 release [employer] Auto CPAP 05/17/21 08/01/22 calcipotriene 0.005 1 applic topical BID 03/21/22 10/10/22 %-betamethasone 0.064 % topical cream cholecalciferol (vitamin D3) 50 50 mcg PO DAILY 03/21/22 10/10/22 mcg (2,000 unit) capsule (Vitamin D3) clobetasol 0.05 % topical cream 1 applic topical BID 03/21/22 10/10/22 folic acid 1 mg tablet 1 mg PO DAILY 03/21/22 10/10/22 methotrexate sodium 2.5 mg tablet 20 mg PO QWEEK 03/21/22 10/10/22 Allergies Allergy/AdvReac Type Severity Reaction Status Date / Time No Known Drug Allergies Allergy Verified 11/08/22 15:19 Review of Systems Review of Systems ROS Unobtainable: All systems reviewed & are unremarkable except as noted in HPI and below Patient History Medical History Allergic rhinosinusitis GERD (gastroesophageal reflux disease) Hyperlipidemia Hypertension 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) Obstructive sleep apnea of adult Primary insomnia Snoring Surgical History History of heart artery stent Family History Brother Hx of CABG Social History marital status: details: to [place], lives [place] household members: spouse lives independently: Yes caregiver/support person: No housing: house coral/restorationism: [place] Smoking Status: Never smoker alcohol intake: current substance use type: does not use Smoking Status: Never smoker alcohol intake frequency: 3 or more drinks per day Substance Use Type: does not use Exam Narrative Exam Narrative: Reviewed vitals signs and nursing notes. General: cooperative, comfortable, in no acute distress, well groomed HEENT: symmetrical facial expressions, moist mucous membranes, patient had Afrin and nasal clamp for 30 minutes, status post clamp removal, no further bleeding, area of erythema in the very anterior Kiesselbach plexus region without vessel associated with it. No further bleeding or clots, patient was able to blow his nose without any further bleeding and has patency of bilateral nares, no sinus tenderness to palpation, denies any illness symptoms Neuro: normal speech and cognition, A&O x3, ambulatory, clear speech Psych: mental status is grossly normal, congruent mood, normal affect, pleasant and cooperative Initial Vital Signs Initial Vital Signs: Vital Signs Temperature 99.1 F 11/08/22 15:17 Pulse Rate 74 11/08/22 15:17 Respiratory Rate 16 11/08/22 15:17 Blood Pressure 168/74 H 11/08/22 15:17 Pulse Oximetry 96 11/08/22 15:17 Oxygen Delivery Method Room Air 11/08/22 15:17 Course Orders Ordered: Discontinued Medications Oxymetazoline HCl (Oxymetazoline Nasal [place] 15 Ml) 2 sprays NASAL NOW ONE Stop: 11/08/22 15:21 Last Admin: 11/08/22 15:25 Dose: 2 sprays Documented By: NIKKI Vital Signs Vital signs: Vital Signs - 8 hr 11/08/22 15:17 Temperature 99.1 F Pulse Rate 74 Respiratory Rate 16 Blood Pressure 168/74 H Pulse Oximetry 96 Oxygen Delivery Method Room Air MDM - Epistaxis MDM Narrative Medical decision making narrative: Chief Complaint: left epistaxis Independent historian: Patient Differential diagnoses include but are not limited to: Posterior epistaxis, anterior superficial epistaxis, vascular injury I have independently reviewed the patient's vital signs and nursing notes as well as prior records if available. Patient had resolution of his epistaxis after Afrin and nasal clamping for 30 minutes, no bleeding down his posterior pharynx, he was observed, ambulatory and was able to blow his nose without any further bleeding, he is neurologically intact, not anticoagulated, without any symptoms at all. Will discharge home with recommendation to follow up with ear nose and throat if this is recurrence, increase the humidity to a CPAP, use saline nasal spray to his nares as needed and Vaseline during the if he needs it. Social considerations that may affect disposition: none Questions are addressed and there is agreement with the plan and for follow-up. Patient is appropriate for outpatient management. MIPS: This encounter doesn't have any diagnosis' associated with MIPS criteria. Discharge Plan Departure Patient Disposition: Home Clinical Impression: Acute anterior epistaxis Instructions: DI for Nosebleed, How to Use Nose Drops Activity Restrictions/Additional Instructions: *You have been diagnosed with a left-sided nosebleed coming from the anterior aspect which does not appear to have a vessel involved with it. Since you had some blood in your nose in the morning, attempt adjusting the humidity, use saline nasal spray throughout the day to increase the moisture in your nares and/ or use Vaseline or Aquaphor to cover the this area and prevent it from bleeding. Please schedule follow-up with Dr. Crooks from [facility], you may call him and make an appointment if this has ongoing recurrence. For your next nosebleed, please use the Afrin, sprayed in your nose and use the clamp for at least 15 minutes, take it off gently and see if you can clear the blood clot and if the bleeding has stopped. Thin schedule follow-up with ear nose and throat if you have not yet done so. *What to do: *Please continue to take your regular medications as directed. [ ] New medication prescriptions sent to your pharmacy: [ ] [ ] New medication written as a paper prescription [x ] No new medications given *Please follow up with your primary care provider in 2-3 days, call for an appointment. Let them know you were seen in the Emergency Department and that we asked that you be seen for follow-up. We will electronically transmit a record of today's note if your PCP is in our system *If you do not have a primary care provider please contact [phone] to establish care with one of the [facility] primary care providers. *Return to Emergency Department if you should have any new, worsening, or concerning symptoms, such as [fever greater than 101F, chills, worsening pain, persistent vomiting or other bothersome symptoms]. Prescriptions: No Action clobetasol 0.05 % Cream 1 applic TOPICAL BID methotrexate sodium 2.5 mg Tablet 20 mg PO QWEEK folic acid 1 mg Tablet 1 mg PO DAILY cholecalciferol (vitamin D3) [Vitamin D3] 50 mcg (2,000 unit) Capsule 50 mcg PO DAILY calcipotriene-betamethasone 0.005-0.064 % Cream 1 applic TOPICAL BID (DME) [employer] Auto CPAP See Rx Instructions .Route .MEDSUPPLY Rx Instructions: Min Pressure: 6 Max Pressure: 14 lisinopril 40 mg tablet 40 mg PO DAILY amlodipine 5 mg tablet 5 mg PO DAILY aspirin 81 mg tablet 81 mg PO DAILY atorvastatin 80 mg tablet 80 mg PO DAILY pantoprazole 20 mg tablet,delayed release (DR/EC) 20 mg PO DAILY chlorthalidone 25 mg tablet 25 mg PO DAILY nitroglycerin 0.4 mg tablet, sublingual 0.4 mg sublingual ONCE PRN (Reason: chest pain) Rx Instructions: as a single dose; administer 5-10 minutes before situation known to precipitate angina attack Referrals: Cristina Roberts MD [Primary Care Provider] - Josafat Crooks MD [Physician] - Stand Alone Forms: Patient Portal/API
== END 2022-11-08 16:34 | disposition home or self-care (01) ==
PROVIDERS: Emergency Provider Nurse Practitioner Critical Care Medicine; PCP Student in an Organized Health Care Education/Training Program
DX: R04.0 Epistaxis (principal)
CPT/HCPCS: 99282; A9270

== ENCOUNTER → 2022-11-22 10:48 | Outpatient (CLI) | payer MEDICARE, OTHER, SELFPAY ==
[2022-11-22 11:49] LABS: Add Manual Diff / Slide Review NO; Basophils Absolute Auto 0 /uL (0-100); Basophils Percent Auto 0.5 % (0-2); Eosinophils Absolute Auto 200 /uL (0-450); Eosinophils Percent Auto 2.1 % (2-4); Hematocrit 37.4 % (41-53); Hemoglobin 12.8 g/dL (13.5-17.5); Lymphocytes Absolute Auto 700 /uL (1100-4500); Lymphocytes Percent Auto 10.1 % (25-40); Mean Corpuscular HGB Conc 34.2 % (30-36); Mean Corpuscular Hemoglobin 34.9 PG (26-34); Mean Corpuscular Volume 101.9 fL (80-100); Monocytes Absolute Auto 700 /uL (0-900); Monocytes Percent Auto 9.6 % (3-14); Neutrophils Absolute Auto 5600 /uL (1500-7000); Neutrophils Percent Auto 77.7 % (50-75); Platelet Count 246 X10^3/uL (150-400); Red Blood Cell Count 3.67 X10^6/uL (4.5-5.9); Red Cell Distribution Width 14.9 % (11.6-14.8); White Blood Cell Count 7.3 X10^3/uL (4.5-11.0)
[2022-11-22 12:03] LABS: Alanine Aminotransferase 23 IU/L (<50); Albumin Globulin Ratio 1.3 (1.0-2.8); Alkaline Phosphatase 78 U/L (38-126); Aspartate Aminotransferase 26 IU/L (17-59); BUN Creatinine Ratio 21.4 (6-22); Bilirubin Total 0.4 mg/dL (0.2-1.3); Blood Urea Nitrogen 18 mg/dL (9-20); C-Reactive Protein Quant 2.8 mg/dL (<1.0); Calcium 9.3 mg/dL (8.4-10.2); Carbon Dioxide 27 mmol/L (22-32); Chloride 103 mmol/L (98-107); Estimated Glomerular Filt Rate > 60 mL/min (>60); Globulin 3.1 g/dL (1.7-4.1); Glucose 107 mg/dL (80-110); HEMOLYSIS < 15 (0-50); Sodium 136 mmol/L (137-145); Total Protein 7.1 g/dL (6.3-8.2)
[2022-11-22 12:06] LABS: Erythrocyte Sedimentation Rate 33 MM/HR (0-15)
== END ==
PROVIDERS: PCP Student in an Organized Health Care Education/Training Program; Referring Provider Specialist/Technologist Athletic Trainer; Visit Provider Specialist/Technologist Athletic Trainer
DX: L40.50 Arthropathic psoriasis, unspecified (principal); L40.9 Psoriasis, unspecified
CPT/HCPCS: 36415; 80053; 85025; 85651; 86140

== ENCOUNTER → 2023-01-25 11:28 | Outpatient (CLI) | payer MEDICARE, OTHER, SELFPAY ==
[2023-01-25 13:01] LABS: Cholesterol 143 mg/dL (140-199); HDL Cholesterol 88 mg/dL (40-60); LDL Cholesterol Calculated 47 mg/dL (<100); Triglycerides 40 mg/dL (35-150)
== END ==
PROVIDERS: PCP Student in an Organized Health Care Education/Training Program; Referring Provider Internal Medicine Cardiovascular Disease; Visit Provider Internal Medicine Cardiovascular Disease
DX: I10 Essential (primary) hypertension (principal); I35.0 Nonrheumatic aortic (valve) stenosis
CPT/HCPCS: 36415; 80061

== ENCOUNTER → 2023-02-28 12:47 | Outpatient (CLI) | payer MEDICARE, OTHER, SELFPAY ==
[2023-02-28 13:23] LABS: Add Manual Diff / Slide Review NO; Basophils Absolute Auto 0 /uL (0-100); Basophils Percent Auto 0.4 % (0-2); Eosinophils Absolute Auto 100 /uL (0-450); Eosinophils Percent Auto 1.2 % (2-4); Hematocrit 38.7 % (41-53); Hemoglobin 13.3 g/dL (13.5-17.5); Lymphocytes Absolute Auto 900 /uL (1100-4500); Lymphocytes Percent Auto 13.6 % (25-40); Mean Corpuscular HGB Conc 34.3 % (30-36); Mean Corpuscular Hemoglobin 35.2 PG (26-34); Mean Corpuscular Volume 102.8 fL (80-100); Monocytes Absolute Auto 600 /uL (0-900); Monocytes Percent Auto 9.1 % (3-14); Neutrophils Absolute Auto 4900 /uL (1500-7000); Neutrophils Percent Auto 75.7 % (50-75); Platelet Count 186 X10^3/uL (150-400); Red Blood Cell Count 3.77 X10^6/uL (4.5-5.9); Red Cell Distribution Width 14.9 % (11.6-14.8); White Blood Cell Count 6.5 X10^3/uL (4.5-11.0)
[2023-02-28 13:51] LABS: Alanine Aminotransferase 36 IU/L (<50); Albumin Globulin Ratio 1.6 (1.0-2.8); Alkaline Phosphatase 81 U/L (38-126); Aspartate Aminotransferase 34 IU/L (17-59); Bilirubin Total 0.5 mg/dL (0.2-1.3); Blood Urea Nitrogen 16 mg/dL (9-20); Calcium 9.4 mg/dL (8.4-10.2); Carbon Dioxide 28 mmol/L (22-32); Chloride 101 mmol/L (98-107); Estimated Glomerular Filt Rate > 60 mL/min (>60); Globulin 2.5 g/dL (1.7-4.1); Glucose 100 mg/dL (80-110); HEMOLYSIS < 15 (0-50); Potassium 4.2 mmol/L (3.4-5.1); Sodium 135 mmol/L (137-145); Total Protein 6.5 g/dL (6.3-8.2)
[2023-02-28 13:52] LABS: Erythrocyte Sedimentation Rate 11 MM/HR (0-15)
== END ==
PROVIDERS: PCP Student in an Organized Health Care Education/Training Program; Referring Provider Specialist/Technologist Athletic Trainer; Visit Provider Specialist/Technologist Athletic Trainer
DX: L40.50 Arthropathic psoriasis, unspecified (principal); L40.9 Psoriasis, unspecified; Z79.631 Long term (current) use of antimetabolite agent; Z51.81 Encounter for therapeutic drug level monitoring; D84.9 Immunodeficiency, unspecified
CPT/HCPCS: 36415; 80053; 85025; 85651; 86140

== ENCOUNTER → 2023-05-30 11:58 | Outpatient (CLI) | payer MEDICARE, OTHER, SELFPAY ==
[2023-05-30 12:43] LABS: Add Manual Diff / Slide Review NO; Basophils Absolute Auto 0 /uL (0-100); Basophils Percent Auto 0.3 % (0-2); Eosinophils Absolute Auto 100 /uL (0-450); Eosinophils Percent Auto 0.9 % (2-4); Hematocrit 40.5 % (41-53); Hemoglobin 13.6 g/dL (13.5-17.5); Lymphocytes Absolute Auto 1100 /uL (1100-4500); Lymphocytes Percent Auto 15.5 % (25-40); Mean Corpuscular HGB Conc 33.5 % (30-36); Mean Corpuscular Hemoglobin 35.3 PG (26-34); Mean Corpuscular Volume 105.2 fL (80-100); Monocytes Absolute Auto 600 /uL (0-900); Monocytes Percent Auto 7.9 % (3-14); Neutrophils Absolute Auto 5300 /uL (1500-7000); Neutrophils Percent Auto 75.4 % (50-75); Platelet Count 201 X10^3/uL (150-400); Red Blood Cell Count 3.85 X10^6/uL (4.5-5.9); Red Cell Distribution Width 14.7 % (11.6-14.8)
[2023-05-30 13:10] LABS: Erythrocyte Sedimentation Rate 5 MM/HR (0-15)
[2023-05-30 13:21] LABS: Alanine Aminotransferase 38 IU/L (<50); Albumin 4.2 g/dL (3.5-5.0); Albumin Globulin Ratio 1.6 (1.0-2.8); Alkaline Phosphatase 60 U/L (38-126); Aspartate Aminotransferase 38 IU/L (17-59); BUN Creatinine Ratio 21.5 (6-22); Bilirubin Total 0.5 mg/dL (0.2-1.3); Blood Urea Nitrogen 20 mg/dL (9-20); C-Reactive Protein Quant < 0.5 mg/dL (<1.0); Carbon Dioxide 27 mmol/L (22-32); Chloride 102 mmol/L (98-107); Estimated Glomerular Filt Rate > 60 mL/min (>60); Globulin 2.6 g/dL (1.7-4.1); Glucose 103 mg/dL (80-110); HEMOLYSIS < 15 (0-50); Potassium 4.2 mmol/L (3.4-5.1); Sodium 137 mmol/L (137-145); Total Protein 6.8 g/dL (6.3-8.2)
== END ==
PROVIDERS: PCP Student in an Organized Health Care Education/Training Program; Referring Provider Specialist/Technologist Athletic Trainer; Visit Provider Specialist/Technologist Athletic Trainer
DX: D84.9 Immunodeficiency, unspecified (principal); L40.50 Arthropathic psoriasis, unspecified; Z51.81 Encounter for therapeutic drug level monitoring
CPT/HCPCS: 36415; 80053; 85025; 85651; 86140

== ENCOUNTER → 2023-08-26 10:12 | Outpatient (CLI) | payer MEDICARE, OTHER, SELFPAY ==
[2023-08-26 10:52] LABS: Hematocrit 39.8 % (41-53); Hemoglobin 13.5 g/dL (13.5-17.5); Mean Corpuscular HGB Conc 33.9 % (30-36); Mean Corpuscular Hemoglobin 35.6 PG (26-34); Platelet Count 174 X10^3/uL (150-400); Red Blood Cell Count 3.79 X10^6/uL (4.5-5.9); Red Cell Distribution Width 14.4 % (11.6-14.8); White Blood Cell Count 4.7 X10^3/uL (4.5-11.0)
[2023-08-26 11:13] LABS: Alanine Aminotransferase 73 IU/L (<50); Albumin 4.2 g/dL (3.5-5.0); Albumin Globulin Ratio 1.6 (1.0-2.8); Alkaline Phosphatase 67 U/L (38-126); Aspartate Aminotransferase 67 IU/L (17-59); BUN Creatinine Ratio 19.6 (6-22); Bilirubin Total 0.8 mg/dL (0.2-1.3); Blood Urea Nitrogen 19 mg/dL (9-20); C-Reactive Protein Quant 0.8 mg/dL (<1.0); Calcium 9.5 mg/dL (8.4-10.2); Carbon Dioxide 25 mmol/L (22-32); Chloride 103 mmol/L (98-107); Estimated Glomerular Filt Rate > 60 mL/min (>60); Globulin 2.6 g/dL (1.7-4.1); Glucose 106 mg/dL (80-110); HEMOLYSIS < 15 (0-50); Potassium 4.1 mmol/L (3.4-5.1); Sodium 135 mmol/L (137-145); Total Protein 6.8 g/dL (6.3-8.2)
[2023-08-26 20:33] LABS: Erythrocyte Sedimentation Rate 4 MM/HR (0-15)
== END ==
PROVIDERS: PCP Student in an Organized Health Care Education/Training Program; Referring Provider Specialist/Technologist Athletic Trainer; Visit Provider Specialist/Technologist Athletic Trainer
DX: Z51.81 Encounter for therapeutic drug level monitoring (principal); L40.9 Psoriasis, unspecified; L40.50 Arthropathic psoriasis, unspecified; D84.9 Immunodeficiency, unspecified
CPT/HCPCS: 36415; 80053; 85027; 85651; 86140

== ENCOUNTER 2023-10-19 09:18 | Emergency (ER) | payer MEDICARE, OTHER, SELFPAY ==
[2023-10-19 09:31] VITALS: BP 141/64; PULSE 67; RESP 14; TEMP 36.5; O2SAT 98; BMI 28.3
--- NOTE | 2023-10-19 09:47 | DI.RAD.S_ITS ---
PROCEDURE: XR FOOT RT MIN 3V INDICATIONS: R FOOT SWELLING TECHNIQUE: 3 views of the foot were acquired. COMPARISON: None. FINDINGS: Bones: No fractures or dislocations. No suspicious bony lesions. Moderate calcaneal spur Soft tissues: No tibiotalar joint effusion. Achilles tendon appears normal. IMPRESSION: No acute bony abnormality. Approved by: Luis Fernando Villatoro M.D. on 10/19/2023 at 9:50
[2023-10-19] MEDS: IBUPROFEN 400 MG TABLET PO (10:50)
--- NOTE | 2023-10-19 11:13 | ED_ITS ---
HPI - Extremity Injury (Lower) General Chief Complaint: Extremity Injury, Lower Stated Complaint: rt foot swollen Time Seen by Provider: 10/19/23 09:22 Source: patient Mode of arrival: Ambulatory Related Data Home Medications Medication Instructions Recorded Confirmed amlodipine 5 mg tablet 5 mg PO DAILY for high BP 12/21/20 10/10/22 aspirin 81 mg tablet 81 mg PO DAILY for CV prophylaxis 12/21/20 10/10/22 atorvastatin 80 mg tablet 80 mg PO DAILY 12/21/20 10/10/22 chlorthalidone 25 mg tablet 25 mg PO DAILY diuretic for high BP 12/21/20 10/10/22 lisinopril 40 mg tablet 40 mg PO DAILY 12/21/20 10/10/22 nitroglycerin 0.4 mg sublingual 0.4 mg sublingual ONCE PRN chest 12/21/20 10/10/22 tablet pain pantoprazole 20 mg tablet,delayed 20 mg PO DAILY on empty stomach 12/21/20 10/10/22 release [employer] Auto CPAP 05/17/21 08/01/22 calcipotriene 0.005 1 applic topical BID 03/21/22 10/10/22 %-betamethasone 0.064 % topical cream cholecalciferol (vitamin D3) 50 50 mcg PO DAILY 03/21/22 10/10/22 mcg (2,000 unit) capsule (Vitamin D3) clobetasol 0.05 % topical cream 1 applic topical BID 03/21/22 10/10/22 folic acid 1 mg tablet 1 mg PO DAILY 03/21/22 10/10/22 methotrexate sodium 2.5 mg tablet 20 mg PO QWEEK 03/21/22 10/10/22 Allergies Allergy/AdvReac Type Severity Reaction Status Date / Time No Known Drug Allergies Allergy Verified 10/19/23 09:43 Patient History Medical History Allergic rhinosinusitis GERD (gastroesophageal reflux disease) Hyperlipidemia Hypertension 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) Obstructive sleep apnea of adult Primary insomnia Snoring Surgical History History of heart artery stent Family History Brother Hx of CABG Social History marital status: details: alfonso Jay, lives in [place] household members: spouse lives independently: Yes caregiver/support person: No housing: house coral/l[employer] day: [employer] Smoking Status: Never smoker alcohol intake: current substance use type: does not use Smoking Status: Never smoker alcohol intake frequency: 3 or more drinks per day Substance Use Type: does not use Exam Initial Vital Signs Initial Vital Signs: Vital Signs Temperature 97.7 F 10/19/23 09:31 Pulse Rate 67 10/19/23 09:31 Respiratory Rate 14 10/19/23 09:31 Blood Pressure 141/64 H 10/19/23 09:31 Pulse Oximetry 98 10/19/23 09:31 Oxygen Delivery Method Room Air 10/19/23 09:31 Course Orders Ordered: ED Orders 10/19/23 09:47 XR foot RT min 3V Stat 10/19/23 11:44 CBC Auto Diff [Complete Blood Count AUTO DIFF] Stat Uric Acid Stat Discontinued Medications Ibuprofen (Ibuprofen 400 Mg Tablet) 400 mg PO NOW ONE Stop: 10/19/23 10:30 Last Admin: 10/19/23 10:50 Dose: 400 mg Documented By: JOSELUIS Vital Signs Vital signs: Vital Signs - 8 hr 10/19/23 09:31 10/19/23 11:22 Temperature 97.7 F 97.5 F L Pulse Rate 67 60 Respiratory Rate 14 18 Blood Pressure 141/64 H 146/66 H Pulse Oximetry 98 99 Oxygen Delivery Method Room Air Room Air MDM - Extremity Injury (Lower) Lab Data 10/19/23 11:44 Imaging Data Extremity x-ray #1: Radiologist's Impression: PROCEDURE: XR FOOT RT MIN 3V INDICATIONS: R FOOT SWELLING TECHNIQUE: 3 views of the foot were acquired. COMPARISON: None. FINDINGS: Bones: No fractures or dislocations. No suspicious bony lesions. Moderate calcaneal spur Soft tissues: No tibiotalar joint effusion. Achilles tendon appears normal. IMPRESSION: No acute bony abnormality. Approved by: Luis Fernando Villatoro M.D. on 10/19/2023 at 9:50 Discharge Plan Departure Prescriptions: No Action clobetasol 0.05 % Cream 1 applic TOPICAL BID methotrexate sodium 2.5 mg Tablet 20 mg PO QWEEK folic acid 1 mg Tablet 1 mg PO DAILY cholecalciferol (vitamin D3) [Vitamin D3] 50 mcg (2,000 unit) Capsule 50 mcg PO DAILY calcipotriene-betamethasone 0.005-0.064 % Cream 1 applic TOPICAL BID (DME) [employer] Auto CPAP See Rx Instructions .Route .MEDSUPPLY Rx Instructions: Min Pressure: 6 Max Pressure: 14 lisinopril 40 mg tablet 40 mg PO DAILY amlodipine 5 mg tablet 5 mg PO DAILY aspirin 81 mg tablet 81 mg PO DAILY atorvastatin 80 mg tablet 80 mg PO DAILY pantoprazole 20 mg tablet,delayed release (DR/EC) 20 mg PO DAILY chlorthalidone 25 mg tablet 25 mg PO DAILY nitroglycerin 0.4 mg tablet, sublingual 0.4 mg sublingual ONCE PRN (Reason: chest pain) Rx Instructions: as a single dose; administer 5-10 minutes before situation known to precipitate angina attack Referrals: Cristina Roberts MD [Primary Care Provider] -
--- NOTE | 2023-10-19 11:17 | ED_ITS ---
HPI - Extremity Injury (Lower) <Maude Murphy PA-C - Last Filed: 10/19/23 14:49> General Chief Complaint: Extremity Injury, Lower Stated Complaint: rt foot swollen Time Seen by Provider: 10/19/23 09:22 Source: patient Mode of arrival: Ambulatory History of Present Illness HPI Narrative: Patient is a 68-year-old male who presents with right MTP pain since last night. He denies any injury or history of trauma to the area. The pain started suddenly and persisted overnight, is even worse this morning. He notes mild redness of the area. He does have a history of rheumatoid arthritis which is well-controlled with methotrexate. Denies history of gout. He reports drinking probably more than I should, mostly beer and hard liquor. He eats meat but does not recall any significant intake of meat or seafood. He denies any recent fever, chills, fatigue or body aches. He denies any wound on his foot. Related Data Home Medications Medication Instructions Recorded Confirmed amlodipine 5 mg tablet 5 mg PO DAILY for high BP 12/21/20 10/10/22 aspirin 81 mg tablet 81 mg PO DAILY for CV prophylaxis 12/21/20 10/10/22 atorvastatin 80 mg tablet 80 mg PO DAILY 12/21/20 10/10/22 chlorthalidone 25 mg tablet 25 mg PO DAILY diuretic for high BP 12/21/20 10/10/22 lisinopril 40 mg tablet 40 mg PO DAILY 12/21/20 10/10/22 nitroglycerin 0.4 mg sublingual 0.4 mg sublingual ONCE PRN chest 12/21/20 10/10/22 tablet pain pantoprazole 20 mg tablet,delayed 20 mg PO DAILY on empty stomach 12/21/20 10/10/22 release [employer] Auto CPAP 05/17/21 08/01/22 calcipotriene 0.005 1 applic topical BID 03/21/22 10/10/22 %-betamethasone 0.064 % topical cream cholecalciferol (vitamin D3) 50 50 mcg PO DAILY 03/21/22 10/10/22 mcg (2,000 unit) capsule (Vitamin D3) clobetasol 0.05 % topical cream 1 applic topical BID 03/21/22 10/10/22 folic acid 1 mg tablet 1 mg PO DAILY 03/21/22 10/10/22 methotrexate sodium 2.5 mg tablet 20 mg PO QWEEK 03/21/22 10/10/22 Previous Rx's Medication Instructions Recorded colchicine 0.6 mg tablet 0.6 mg PO BID #10 tabs 10/19/23 prednisone 20 mg tablet 20 mg PO DAILY #4 tabs 10/19/23 Allergies Allergy/AdvReac Type Severity Reaction Status Date / Time No Known Drug Allergies Allergy Verified 10/19/23 09:43 Review of Systems <Maude Murphy PA-C - Last Filed: 10/19/23 14:49> Review of Systems ROS Unobtainable: All systems reviewed & are unremarkable except as noted in HPI and below Patient History <Maude Murphy PA-C - Last Filed: 10/19/23 14:49> 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) Allergic rhinosinusitis GERD (gastroesophageal reflux disease) Ischemic heart disease Snoring Primary insomnia Obstructive sleep apnea of adult Hypertension Hyperlipidemia Surgical History History of heart artery stent Family History Brother Hx of CABG Social History marital status: details: alfonso [place], lives in [place] household members: spouse lives independently: Yes caregiver/support person: No housing: house coral/alevism: [employer] Smoking Status: Never smoker alcohol intake: current substance use type: does not use Smoking Status: Never smoker alcohol intake frequency: 3 or more drinks per day Substance Use Type: does not use Exam <Maude Murphy PA-C - Last Filed: 10/19/23 14:49> Narrative Exam Narrative: GENERAL: 68 year old patient appears stated age. Well-developed patient, in no acute distress. NEURO: AOx3. HEAD: Atraumatic. Normocephalic. EYES: Pupils equal round and reactive. Extraocular motions intact. No scleral icterus. No injection or drainage. ENT: Nose without bleeding or purulent drainage. Airway patent. RESPIRATORY: No distress. EXTREMITIES: Mild edema and mild erythema over the right 1st MTP joint. Very tender to light palpation and with passive range of motion. 2+ DP pulse, skin pink and warm over foot. Initial Vital Signs Initial Vital Signs: Vital Signs Temperature 97.7 F 10/19/23 09:31 Pulse Rate 67 10/19/23 09:31 Respiratory Rate 14 10/19/23 09:31 Blood Pressure 141/64 H 10/19/23 09:31 Pulse Oximetry 98 10/19/23 09:31 Oxygen Delivery Method Room Air 10/19/23 09:31 <Jerrica Gordillo MD - Last Filed: 10/19/23 15:28> Initial Vital Signs Initial Vital Signs: Vital Signs Temperature 97.7 F 10/19/23 09:31 Pulse Rate 67 10/19/23 09:31 Respiratory Rate 14 10/19/23 09:31 Blood Pressure 141/64 H 10/19/23 09:31 Pulse Oximetry 98 10/19/23 09:31 Oxygen Delivery Method Room Air 10/19/23 09:31 Course <Maude Murphy PA-C - Last Filed: 10/19/23 14:49> Orders Ordered: ED Orders 10/19/23 09:47 XR foot RT min 3V Stat 10/19/23 11:44 CBC Auto Diff [Complete Blood Count AUTO DIFF] Stat Uric Acid Stat Discontinued Medications Ibuprofen (Ibuprofen 400 Mg Tablet) 400 mg PO NOW ONE Stop: 10/19/23 10:30 Last Admin: 10/19/23 10:50 Dose: 400 mg Documented By: RL Vital Signs Vital signs: Vital Signs - 8 hr 10/19/23 09:31 10/19/23 11:22 Temperature 97.7 F 97.5 F L Pulse Rate 67 60 Respiratory Rate 14 18 Blood Pressure 141/64 H 146/66 H Pulse Oximetry 98 99 Oxygen Delivery Method Room Air Room Air <Jerrica Gordillo MD - Last Filed: 10/19/23 15:28> Orders Ordered: ED Orders 10/19/23 09:47 XR foot RT min 3V Stat 10/19/23 11:44 CBC Auto Diff [Complete Blood Count AUTO DIFF] Stat Uric Acid Stat Discontinued Medications Ibuprofen (Ibuprofen 400 Mg Tablet) 400 mg PO NOW ONE Stop: 10/19/23 10:30 Last Admin: 10/19/23 10:50 Dose: 400 mg Documented By: JOSELUIS Vital Signs Vital signs: Vital Signs - 8 hr 10/19/23 09:31 10/19/23 11:22 Temperature 97.7 F 97.5 F L Pulse Rate 67 60 Respiratory Rate 14 18 Blood Pressure 141/64 H 146/66 H Pulse Oximetry 98 99 Oxygen Delivery Method Room Air Room Air MDM - Extremity Injury (Lower) <Maude Murphy PA-C - Last Filed: 10/19/23 14:49> Lab Data 10/19/23 11:44 Labs: Lab Results 10/19/23 Range/Units 11:44 WBC 6.8 (4.5-11.0) X10^3/uL RBC 3.90 L (4.5-5.9) X10^6/uL Hgb 13.7 (13.5-17.5) g/dL Hct 40.4 L (41-53) % MCV 103.5 H (80-100) fL MCH 35.0 H (26-34) PG MCHC 33.8 (30-36) % RDW 13.5 (11.6-14.8) % Plt Count 185 (150-400) X10^3/uL Neut % (Auto) 76.4 H (50-75) % Lymph % (Auto) 13.0 L (25-40) % [place] % (Auto) 9.2 (3-14) % Eos % (Auto) 1.1 L (2-4) % Baso % (Auto) 0.3 (0-2) % Neut # (Auto) 5200 (8534-0209) /uL Lymph # (Auto) 900 L (2371-7908) /uL [place] # (Auto) 600 (0-900) /uL Eos # (Auto) 100 (0-450) /uL Baso # (Auto) 0 (0-100) /uL Uric Acid 8.0 (3.5-8.5) mg/dL Imaging Data Extremity x-ray #1: Radiologist's Impression: PROCEDURE: XR FOOT RT MIN 3V INDICATIONS: R FOOT SWELLING TECHNIQUE: 3 views of the foot were acquired. COMPARISON: None. FINDINGS: Bones: No fractures or dislocations. No suspicious bony lesions. Moderate calcaneal spur Soft tissues: No tibiotalar joint effusion. Achilles tendon appears normal. IMPRESSION: No acute bony abnormality. Approved by: Luis Fernando Villatoro M.D. on 10/19/2023 at 9:50 MDM Narrative Medical decision making narrative: Multiple etiologies for patient's symptoms considered including, but not limited to: Gout, septic joint, cellulitis, fracture, rheumatoid arthritis flare Patient's history and physical most consistent with gout in the right 1st MTP. X-ray reassuring. CBC without evidence of leukocytosis and no history of fever, making septic joint unlikely. Uric acid level high-normal. Will treat as gout. Advised dietary modifications. Prescribed colchicine and short course oral steroid. Patient advised of return precautions, prevention of recurrent flares and follow up with PCP if continues to have flares to consider prophylactic treatment. Patient's symptoms improved over duration of stay with above-stated therapies. Findings and discharge diagnosis discussed with patient/family followed by verbalization of understanding Return precautions discussed with patient/family whom verbalize understanding of diagnosis and plan <Jerrica Gordillo MD - Last Filed: 10/19/23 15:28> Lab Data Labs: Lab Results 10/19/23 Range/Units 11:44 WBC 6.8 (4.5-11.0) X10^3/uL RBC 3.90 L (4.5-5.9) X10^6/uL Hgb 13.7 (13.5-17.5) g/dL Hct 40.4 L (41-53) % MCV 103.5 H (80-100) fL MCH 35.0 H (26-34) PG MCHC 33.8 (30-36) % RDW 13.5 (11.6-14.8) % Plt Count 185 (150-400) X10^3/uL Neut % (Auto) 76.4 H (50-75) % Lymph % (Auto) 13.0 L (25-40) % [place] % (Auto) 9.2 (3-14) % Eos % (Auto) 1.1 L (2-4) % Baso % (Auto) 0.3 (0-2) % Neut # (Auto) 5200 (6539-4961) /uL Lymph # (Auto) 900 L (5366-6765) /uL [place] # (Auto) 600 (0-900) /uL Eos # (Auto) 100 (0-450) /uL Baso # (Auto) 0 (0-100) /uL Uric Acid 8.0 (3.5-8.5) mg/dL Discharge Plan Departure Patient Disposition: Home Clinical Impression: Gout Qualifiers: Gout site: toe Gout etiology: unspecified cause Chronicity: acute Laterality: r ight Qualified Code(s): M10.9 - Gout, unspecified Instructions: DI for Gout Activity Restrictions/Additional Instructions: *You have been diagnosed with gout. Gout can often be managed by decreasing dietary intake of alcohol, especially beer, and meat and seafood. For acute treatment, I have prescribed colchicine and steroids. Take the colchicine until your pain resolves. Take the steroids for the prescribed number of days. If you continue to have gout flares that are controlled with dietary changes, please follow up with your primary care provider. If you develop a fever with her joint pain or it seems to be getting worse, please return for reassessment. Colchicine can sometimes cause muscle aches or weakness. Since you already take a statin medication, this affect maybe worsened. If you develop muscle aches or weakness, please stop taking the colchicine. Colchicine can also call stomach pain or diarrhea. If these occur, please stop taking the medicine. Gout flares we will generally resolve over time without medication. *What to do: *Please continue to take your regular medications as directed. [x] New medication prescriptions sent to your pharmacy: [facility] [ ] New medication written as a paper prescription [ ] No new medications given *Please follow up with your primary care provider in 2-3 days, call for an appointment. Let them know you were seen in the Emergency Department and that we ask that you be seen in follow up. We will electronically transmit a record of today's note if your PCP is in our system *If you do not have a primary care provider please contact the [facility] Resource line at [phone]. They will ask some questions about your medical history and help get you set up with a doctor in the community. *Return to Emergency Department if you should have any new, worsening or concerning symptoms, such as [fever greater than 101 F, shaking chills, worsening pain, persistent vomiting or other concerning symptoms]. Prescriptions: New colchicine 0.6 mg tablet 0.6 mg PO BID Qty: 10 0RF Rx Instructions: Take 2 tablets for your 1st dose, then 1 tablet 1 hour later for a total of 3 tablets today. Then take 1 tablet a day until the pain resolves. If you develop muscle pain or weakness, stop taking this medication. prednisone 20 mg tablet 20 mg PO DAILY Qty: 4 0RF No Action clobetasol 0.05 % Cream 1 applic TOPICAL BID methotrexate sodium 2.5 mg Tablet 20 mg PO QWEEK folic acid 1 mg Tablet 1 mg PO DAILY cholecalciferol (vitamin D3) [Vitamin D3] 50 mcg (2,000 unit) Capsule 50 mcg PO DAILY calcipotriene-betamethasone 0.005-0.064 % Cream 1 applic TOPICAL BID (DME) [employer] Auto CPAP See Rx Instructions .Route .MEDSUPPLY Rx Instructions: Min Pressure: 6 Max Pressure: 14 lisinopril 40 mg tablet 40 mg PO DAILY amlodipine 5 mg tablet 5 mg PO DAILY aspirin 81 mg tablet 81 mg PO DAILY atorvastatin 80 mg tablet 80 mg PO DAILY pantoprazole 20 mg tablet,delayed release (DR/EC) 20 mg PO DAILY chlorthalidone 25 mg tablet 25 mg PO DAILY nitroglycerin 0.4 mg tablet, sublingual 0.4 mg sublingual ONCE PRN (Reason: chest pain) Rx Instructions: as a single dose; administer 5-10 minutes before situation known to precipitate angina attack Referrals: Cristina Roberts MD [Primary Care Provider] - Stand Alone Forms: Patient Portal/API ED Sign-out <Jerrica Gordillo MD - Last Filed: 10/19/23 15:28> Cosign ED Attending Cosignature Attestation: I did not see this patient. I was available all times for consultation.
[2023-10-19 11:22] VITALS: BP 146/66; PULSE 60; RESP 18; TEMP 36.4; O2SAT 99
[2023-10-19 12:35] LABS: Add Manual Diff / Slide Review NO; Basophils Absolute Auto 0 /uL (0-100); Basophils Percent Auto 0.3 % (0-2); Eosinophils Absolute Auto 100 /uL (0-450); Eosinophils Percent Auto 1.1 % (2-4); Hematocrit 40.4 % (41-53); Hemoglobin 13.7 g/dL (13.5-17.5); Lymphocytes Absolute Auto 900 /uL (1100-4500); Mean Corpuscular HGB Conc 33.8 % (30-36); Mean Corpuscular Volume 103.5 fL (80-100); Monocytes Absolute Auto 600 /uL (0-900); Monocytes Percent Auto 9.2 % (3-14); Neutrophils Absolute Auto 5200 /uL (1500-7000); Neutrophils Percent Auto 76.4 % (50-75); Platelet Count 185 X10^3/uL (150-400); Red Cell Distribution Width 13.5 % (11.6-14.8); White Blood Cell Count 6.8 X10^3/uL (4.5-11.0)
== END 2023-10-19 13:02 | disposition home or self-care (01) ==
PROVIDERS: Emergency Provider Physician Assistant; PCP Student in an Organized Health Care Education/Training Program
DX: M10.9 Gout, unspecified (principal)
CPT/HCPCS: 36415; 73630; 84550; 85025; 99284

== ENCOUNTER → 2023-12-16 10:05 | Outpatient (CLI) | payer MEDICARE, OTHER, SELFPAY ==
[2023-12-16 10:59] LABS: Add Manual Diff / Slide Review NO; Basophils Absolute Auto 0 /uL (0-100); Basophils Percent Auto 0.4 % (0-2); Eosinophils Absolute Auto 100 /uL (0-450); Eosinophils Percent Auto 1.1 % (2-4); Hematocrit 39.5 % (41-53); Hemoglobin 13.3 g/dL (13.5-17.5); Lymphocytes Absolute Auto 900 /uL (1100-4500); Lymphocytes Percent Auto 13.5 % (25-40); Mean Corpuscular HGB Conc 33.8 % (30-36); Mean Corpuscular Hemoglobin 34.7 PG (26-34); Mean Corpuscular Volume 102.8 fL (80-100); Monocytes Absolute Auto 400 /uL (0-900); Monocytes Percent Auto 5.8 % (3-14); Neutrophils Absolute Auto 5400 /uL (1500-7000); Neutrophils Percent Auto 79.2 % (50-75); Platelet Count 227 X10^3/uL (150-400); Red Blood Cell Count 3.84 X10^6/uL (4.5-5.9); Red Cell Distribution Width 14.7 % (11.6-14.8); White Blood Cell Count 6.9 X10^3/uL (4.5-11.0)
[2023-12-16 11:16] LABS: Erythrocyte Sedimentation Rate 19 MM/HR (0-15)
[2023-12-16 11:26] LABS: Alanine Aminotransferase 22 IU/L (<50); Albumin 3.9 g/dL (3.5-5.0); Albumin Globulin Ratio 1.4 (1.0-2.8); Alkaline Phosphatase 59 U/L (38-126); Aspartate Aminotransferase 27 IU/L (17-59); BUN Creatinine Ratio 22.1 (6-22); Bilirubin Total 0.8 mg/dL (0.2-1.3); Blood Urea Nitrogen 19 mg/dL (9-20); C-Reactive Protein Quant 1.1 mg/dL (<1.0); Calcium 9.1 mg/dL (8.4-10.2); Carbon Dioxide 27 mmol/L (22-32); Chloride 106 mmol/L (98-107); Estimated Glomerular Filt Rate > 60 mL/min (>60); Globulin 2.8 g/dL (1.7-4.1); Glucose 94 mg/dL (80-110); HEMOLYSIS 26 (0-50); Potassium 4.3 mmol/L (3.4-5.1); Sodium 139 mmol/L (137-145); Total Protein 6.7 g/dL (6.3-8.2)
== END ==
LOC: LAB 10:06
PROVIDERS: PCP Student in an Organized Health Care Education/Training Program; Referring Provider Specialist/Technologist Athletic Trainer; Visit Provider Specialist/Technologist Athletic Trainer
DX: L40.50 Arthropathic psoriasis, unspecified (principal); R74.01 Elevation of levels of liver transaminase levels
CPT/HCPCS: 36415; 80053; 85025; 85651; 86140

== ENCOUNTER → 2024-03-16 11:24 | Outpatient (CLI) | payer MEDICARE, OTHER, SELFPAY ==
[2024-03-16 13:25] LABS: Hematocrit 36.5 % (41-53); Hemoglobin 12.3 g/dL (13.5-17.5); Mean Corpuscular HGB Conc 33.8 % (30-36); Mean Corpuscular Hemoglobin 34.9 PG (26-34); Mean Corpuscular Volume 103.4 fL (80-100); Platelet Count 219 X10^3/uL (150-400); Red Blood Cell Count 3.53 X10^6/uL (4.5-5.9); Red Cell Distribution Width 14.5 % (11.6-14.8); White Blood Cell Count 7.3 X10^3/uL (4.5-11.0)
[2024-03-16 13:47] LABS: Erythrocyte Sedimentation Rate 33 MM/HR (0-15)
[2024-03-16 15:47] LABS: Alanine Aminotransferase 20 IU/L (<50); Albumin 3.8 g/dL (3.5-5.0); Albumin Globulin Ratio 1.4 (1.0-2.8); Alkaline Phosphatase 67 U/L (38-126); Aspartate Aminotransferase 28 IU/L (17-59); BUN Creatinine Ratio 20.2 (6-22); Bilirubin Total 0.7 mg/dL (0.2-1.3); Blood Urea Nitrogen 20 mg/dL (9-20); C-Reactive Protein Quant 4.6 mg/dL (<1.0); Calcium 8.9 mg/dL (8.4-10.2); Carbon Dioxide 25 mmol/L (22-32); Chloride 106 mmol/L (98-107); Estimated Glomerular Filt Rate > 60 mL/min (>60); Globulin 2.7 g/dL (1.7-4.1); Glucose 98 mg/dL (80-110); HEMOLYSIS < 15 (0-50); Potassium 4.5 mmol/L (3.4-5.1); Sodium 138 mmol/L (137-145); Total Protein 6.5 g/dL (6.3-8.2)
== END ==
PROVIDERS: PCP Student in an Organized Health Care Education/Training Program; Referring Provider Specialist/Technologist Athletic Trainer; Visit Provider Specialist/Technologist Athletic Trainer
DX: L40.50 Arthropathic psoriasis, unspecified (principal); Z51.81 Encounter for therapeutic drug level monitoring; D84.9 Immunodeficiency, unspecified
CPT/HCPCS: 36415; 80053; 85027; 85651; 86140

== ENCOUNTER → 2024-03-24 11:29 | Outpatient (CLI) | payer MEDICARE, OTHER, SELFPAY ==
[2024-03-24 12:30] LABS: Add Manual Diff / Slide Review NO; Basophils Absolute Auto 0 /uL (0-100); Basophils Percent Auto 0.4 % (0-2); Eosinophils Absolute Auto 100 /uL (0-450); Eosinophils Percent Auto 1.2 % (2-4); Hematocrit 37.3 % (41-53); Hemoglobin 12.5 g/dL (13.5-17.5); Lymphocytes Absolute Auto 800 /uL (1100-4500); Lymphocytes Percent Auto 10.2 % (25-40); Mean Corpuscular HGB Conc 33.6 % (30-36); Mean Corpuscular Hemoglobin 34.9 PG (26-34); Monocytes Absolute Auto 400 /uL (0-900); Monocytes Percent Auto 4.9 % (3-14); Neutrophils Absolute Auto 6800 /uL (1500-7000); Neutrophils Percent Auto 83.3 % (50-75); Platelet Count 238 X10^3/uL (150-400); Red Blood Cell Count 3.59 X10^6/uL (4.5-5.9); Red Cell Distribution Width 14.9 % (11.6-14.8); White Blood Cell Count 8.2 X10^3/uL (4.5-11.0)
== END ==
PROVIDERS: PCP Student in an Organized Health Care Education/Training Program; Referring Provider Internal Medicine Interventional Cardiology; Visit Provider Internal Medicine Interventional Cardiology
DX: I35.0 Nonrheumatic aortic (valve) stenosis (principal)
CPT/HCPCS: 36415; 85025

== ENCOUNTER 2024-04-10 04:50 | Emergency (ER) | payer MEDICARE, OTHER, SELFPAY ==
[2024-04-10] VITALS (24 sets, daily range): BP systolic 134–194; BP diastolic 60–103; PULSE 71–105; RESP 12–25; TEMP 36.8; O2SAT 90–97; BMI 29.0
--- NOTE | 2024-04-10 05:07 | DI.CT.S_ITS ---
PROCEDURE: CT ANGIO CHEST PE PROTOCOL INDICATIONS: DYSPNEA, TACHY, RECENT HOSPITALIZATION TECHNIQUE: After the administration of intravenous contrast, 2 mm thick sections acquired from the pulmonary apices to the posterior costophrenic angles. 3-dimensional maximum intensity projection (MIP) coronal and sagittal reformats were then acquired through the thorax. For radiation dose reduction, the following was used: automated exposure control, adjustment of mA and/or kV according to patient size. COMPARISON: None. FINDINGS: Image quality: Diagnostic. Pulmonary arteries: Pulmonary arteries are prominent in size, and demonstrate no intraluminal filling defects to suggest central pulmonary embolism. Lower Neck: No enlarged lymph nodes. Thyroid: No thyroid nodules which require sonographic follow up, per consensus guidelines. Axillae: No enlarged lymph nodes. Chest Wall: Unremarkable. Bones: Unremarkable. Lungs and Pleura: Moderate bilateral pleural effusion is seen with compressive atelectasis in posterior aspect of bilateral lung flores. Hazy ground-glass opacities are noted scattered throughout bilateral aerated lung flores. No pneumothorax. Central and peripheral airway is patent. Heart: Heart size is enlarged. No pericardial effusion. Thoracic Vessels: No aortic aneurysm. Prosthetic aortic valve is seen. 3 vessel coronary artery atherosclerotic calcifications are seen. Mediastinum and Malorie: Mildly prominent mediastinal lymph nodes are seen measures up to 1.1 cm in short axis diameter in right paratracheal space. Esophagus: No wall thickening. Small hiatal hernia. Upper Abdomen: Visualized upper abdomen solid organs and bowel loops appear normal. IMPRESSION: 1. No pulmonary embolus. Prominent size of main pulmonary trunk concerning for pulmonary vascular hypertension. 2. Moderate bilateral pleural effusion with compressive atelectasis in posterior aspect of bilateral lung flores. Hazy ground-glass opacities throughout bilateral lung flores suggestive of pulmonary edema. No pneumothorax. 3. Mildly enlarged mediastinal lymph nodes likely reactive in nature. 4. Moderate to severe coronary artery atherosclerotic calcifications. No significant discrepancies from preliminary reading. Dictated by: Joby Self M.D. on 04/10/2024 at 8:54 Approved by: Joby Self M.D. on 04/10/2024 at 9:04
--- NOTE | 2024-04-10 05:08 | ED_ITS ---
HPI - SOB/Dyspnea <Jerrica Gordillo MD - Last Filed: 04/11/24 03:37> General Chief Complaint: Shortness of Breath/Dyspnea Stated Complaint: hard time breathing Time Seen by Provider: 04/10/24 04:55 History of Present Illness HPI Narrative: 68-year-old male with history of coronary artery disease status post stent, aortic stenosis status post TAVR 04/01 at [facility]. Patient states that he has been recovering well at home and just had his postop check with his occupational therapy assistant. This morning around 230 he woke up feeling very short of breath. His symptoms persisted and so he decided to present for evaluation. Denies chest pain, leg swelling, history of lung disease. Related Data Home Medications Medication Instructions Recorded Confirmed amlodipine 5 mg tablet 5 mg PO DAILY for high BP 12/21/20 04/10/24 aspirin 81 mg tablet 81 mg PO DAILY for CV prophylaxis 12/21/20 04/10/24 atorvastatin 80 mg tablet 40 mg PO DAILY 12/21/20 04/10/24 chlorthalidone 25 mg tablet 12.5 mg PO DAILY diuretic for high 12/21/20 04/10/24 BP lisinopril 40 mg tablet 40 mg PO DAILY 12/21/20 04/10/24 nitroglycerin 0.4 mg sublingual 0.4 mg sublingual ONCE PRN chest 12/21/20 04/10/24 tablet pain pantoprazole 20 mg tablet,delayed 20 mg PO DAILY on empty stomach 12/21/20 04/10/24 release DreamStation Auto CPAP 05/17/21 08/01/22 calcipotriene 0.005 1 applic topical BID 03/21/22 04/10/24 %-betamethasone 0.064 % topical cream cholecalciferol (vitamin D3) 50 50 mcg PO DAILY 03/21/22 04/10/24 mcg (2,000 unit) capsule (Vitamin D3) clobetasol 0.05 % topical cream 1 applic topical BID 03/21/22 04/10/24 folic acid 1 mg tablet 2 mg PO DAILY 03/21/22 04/10/24 methotrexate sodium 2.5 mg tablet 20 mg PO QWEEK 03/21/22 04/10/24 Previous Rx's Medication Instructions Recorded furosemide 20 mg tablet (Lasix) 20 mg PO DAILY #4 tabs 04/10/24 Allergies Allergy/AdvReac Type Severity Reaction Status Date / Time No Known Drug Allergies Allergy Verified 10/19/23 09:43 Patient History <Jerrica Gordillo MD - Last Filed: 04/11/24 03:37> 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) Allergic rhinosinusitis GERD (gastroesophageal reflux disease) Ischemic heart disease Snoring Primary insomnia Obstructive sleep apnea of adult Hypertension Hyperlipidemia Surgical History History of heart artery stent Family History Brother Hx of CABG Social History marital status: details: alfonso Jay, lives in [place] household members: spouse lives independently: Yes caregiver/support person: No housing: house coral/lutheran: Buddhism Smoking Status: Never smoker alcohol intake: current substance use type: does not use Smoking Status: Never smoker alcohol intake frequency: 3 or more drinks per day Substance Use Type: does not use Exam <Jerrica Gordillo MD - Last Filed: 04/11/24 03:37> Initial Vital Signs Initial Vital Signs: Vital Signs Pulse Rate 101 H 04/10/24 05:00 Pulse Oximetry 90 L 04/10/24 05:00 Oxygen Delivery Method Room Air 04/10/24 05:00 Const: Awake, alert, ill-appearing, nontoxic Cardiac: Tachycardia, regular rhythm RESP: Tachypnea, clear bilaterally, no wheezing MSK: No calf tenderness, full range of motion, pulses equal Skin: Warm, Dry, intact, no rashes Neuro: AO x3, CN II-XII grossly intact, moves all extremities <Paz Nam DO - Last Filed: 04/10/24 14:37> Initial Vital Signs Initial Vital Signs: Vital Signs Pulse Rate 101 H 04/10/24 05:00 Pulse Oximetry 90 L 04/10/24 05:00 Oxygen Delivery Method Room Air 04/10/24 05:00 Course <Jerrica Gordillo MD - Last Filed: 04/11/24 03:37> Orders Ordered: Discontinued Medications Furosemide (Furosemide 40 Mg/4 Ml Vial) 40 mg IV NOW ONE Stop: 04/10/24 05:54 Last Admin: 04/10/24 06:03 Dose: 40 mg Documented By: DAVID Furosemide (Furosemide 40 Mg/4 Ml Vial) 20 mg IV NOW ONE Stop: 04/10/24 11:08 Last Admin: 04/10/24 11:28 Dose: 20 mg Documented By: PRINCESS Vital Signs Vital signs: Vital Signs - 8 hr 04/10/24 11:00 04/10/24 11:30 04/10/24 12:00 Pulse Rate 75 76 72 Respiratory Rate 22 20 Blood Pressure Pulse Oximetry 93 93 95 Oxygen Delivery Method Room Air 04/10/24 12:30 04/10/24 13:00 04/10/24 13:19 Pulse Rate 74 80 82 Respiratory Rate 22 25 H Blood Pressure Pulse Oximetry 95 95 96 Oxygen Delivery Method 04/10/24 13:19 Pulse Rate Respiratory Rate Blood Pressure 152/70 H Pulse Oximetry Oxygen Delivery Method <Paz Nam DO - Last Filed: 04/10/24 14:37> Orders Ordered: Discontinued Medications Furosemide (Furosemide 40 Mg/4 Ml Vial) 40 mg IV NOW ONE Stop: 04/10/24 05:54 Last Admin: 04/10/24 06:03 Dose: 40 mg Documented By: DAVID Furosemide (Furosemide 40 Mg/4 Ml Vial) 20 mg IV NOW ONE Stop: 04/10/24 11:08 Last Admin: 04/10/24 11:28 Dose: 20 mg Documented By: PRINCESS Vital Signs Vital signs: Vital Signs - 8 hr 04/10/24 11:00 04/10/24 11:30 04/10/24 12:00 Pulse Rate 75 76 72 Respiratory Rate 22 20 Blood Pressure Pulse Oximetry 93 93 95 Oxygen Delivery Method Room Air 04/10/24 12:30 04/10/24 13:00 04/10/24 13:19 Pulse Rate 74 80 82 Respiratory Rate 22 25 H Blood Pressure Pulse Oximetry 95 95 96 Oxygen Delivery Method 04/10/24 13:19 Pulse Rate Respiratory Rate Blood Pressure 152/70 H Pulse Oximetry Oxygen Delivery Method MDM - SOB/Dyspnea <Jerrica Gordillo MD - Last Filed: 04/11/24 03:37> Differential Diagnosis Differential diagnosis: Likely acute exacerbation of chronic obstructive airways disease, congestive heart failure and pulmonary embolism Lab Data 04/10/24 05:15 04/10/24 05:15 Labs: Lab Results 04/10/24 04/10/24 Range/Units 05:15 07:15 WBC 10.2 (4.5-11.0) X10^3/uL RBC 3.15 L (4.5-5.9) X10^6/uL Hgb 11.0 L (13.5-17.5) g/dL Hct 32.0 L (41-53) % MCV 101.4 H (80-100) fL MCH 34.8 H (26-34) PG MCHC 34.3 (30-36) % RDW 14.7 (11.6-14.8) % Plt Count 205 (150-400) X10^3/uL Neut % (Auto) 80.2 H (50-75) % Lymph % (Auto) 9.3 L (25-40) % [place] % (Auto) 7.6 (3-14) % Eos % (Auto) 2.5 (2-4) % Baso % (Auto) 0.4 (0-2) % Neut # (Auto) 8200 H (4541-2915) /uL Lymph # (Auto) 900 L (1468-5987) /uL [place] # (Auto) 800 (0-900) /uL Eos # (Auto) 300 (0-450) /uL Baso # (Auto) 0 (0-100) /uL PT 12.6 H (9.4-12.5) SECONDS INR 1.1 (0.9-1.3) Sodium 134 L (137-145) mmol/L Potassium 3.5 (3.4-5.1) mmol/L Chloride 104 (98-107) mmol/L Carbon Dioxide 25 (22-32) mmol/L BUN 18 (9-20) mg/dL Creatinine 0.86 (0.66-1.25) mg/dL Estimated GFR > 60 (>60) mL/min BUN/Creatinine Ratio 20.9 (6-22) Glucose 99 (80-110) mg/dL Calcium 9.8 (8.4-10.2) mg/dL Total Bilirubin 0.8 (0.2-1.3) mg/dL AST 36 (17-59) IU/L ALT 19 (<50) IU/L Alkaline Phosphatase 81 (38-126) U/L Total Creatine Kinase 89 (55-170) U/L Troponin I 0.054 H 0.061 H (0.01-0.034) ng/mL NT-Pro-B Natriuret Pep 1210 H (<125) pg/mL Total Protein 6.6 (6.3-8.2) g/dL Albumin 3.8 (3.5-5.0) g/dL Globulin 2.8 (1.7-4.1) g/dL Albumin/Globulin Ratio 1.4 (1.0-2.8) ECG Data Interpretation: Sinus rhythm, LBBB, no significant MDM Narrative Medical decision making narrative: Sudden onset shortness of breath after recent hospitalization. Heart rate upper 90s on arrival, saturating 93% on room air. Differential includes PE, heart failure, pneumonia. Placed on court monitor, CT angio ordered, other labs and EKG ordered. CTA shows no actue pulmonary embolism, however bilateral pleural effusions present. Patient denies history of heart failure and denies use of Lasix or other diuretics. Call placed to patient's interventional team at [facility] for recommendations. Spoke with Dr. Vogt of interventional cardiology. He recommends an echocardiogram. If EF is normal than this indicates diastolic heart failure and patient can be started on gentle diuresis. Request call back if significantly decreased EF or if presence of heart block. Echocardiogram ordered. Care of patient signed to Dr. Cyril Nam 7:20am signed out to me by Dr. Gordillo I have seen evaluated patient myself. He is no longer requiring oxygen but still feels clammy no significant shortness of breath. Awaiting echocardiogram this morning and then Re consults [place]. Temperature is retaken due to clamminess and is 98.1 1255DR. Celis called with echo results EF 45% with severe MR. Awaited final report 100 Dr. Sommers at [facility] updated on echo results including EF of 45% and severe MR and patient's symptoms test results agrees with on Lasix 20 outpatient and follow-up with primary occupational therapy assistant Patient reports that he actually has appointments scheduled and a repeat echo I recommend he keep that. He has given a prescription for Lasix he understands to return to the ED 13:45- echo report faxed over, still not in [facility]. <Paz Nam, - Last Filed: 04/10/24 14:37> Lab Data Labs: Lab Results 04/10/24 04/10/24 Range/Units 05:15 07:15 WBC 10.2 (4.5-11.0) X10^3/uL RBC 3.15 L (4.5-5.9) X10^6/uL Hgb 11.0 L (13.5-17.5) g/dL Hct 32.0 L (41-53) % MCV 101.4 H (80-100) fL MCH 34.8 H (26-34) PG MCHC 34.3 (30-36) % RDW 14.7 (11.6-14.8) % Plt Count 205 (150-400) X10^3/uL Neut % (Auto) 80.2 H (50-75) % Lymph % (Auto) 9.3 L (25-40) % [place] % (Auto) 7.6 (3-14) % Eos % (Auto) 2.5 (2-4) % Baso % (Auto) 0.4 (0-2) % Neut # (Auto) 8200 H (0388-7543) /uL Lymph # (Auto) 900 L (5334-5904) /uL [place] # (Auto) 800 (0-900) /uL Eos # (Auto) 300 (0-450) /uL Baso # (Auto) 0 (0-100) /uL PT 12.6 H (9.4-12.5) SECONDS INR 1.1 (0.9-1.3) Sodium 134 L (137-145) mmol/L Potassium 3.5 (3.4-5.1) mmol/L Chloride 104 (98-107) mmol/L Carbon Dioxide 25 (22-32) mmol/L BUN 18 (9-20) mg/dL Creatinine 0.86 (0.66-1.25) mg/dL Estimated GFR > 60 (>60) mL/min BUN/Creatinine Ratio 20.9 (6-22) Glucose 99 (80-110) mg/dL Calcium 9.8 (8.4-10.2) mg/dL Total Bilirubin 0.8 (0.2-1.3) mg/dL AST 36 (17-59) IU/L ALT 19 (<50) IU/L Alkaline Phosphatase 81 (38-126) U/L Total Creatine Kinase 89 (55-170) U/L Troponin I 0.054 H 0.061 H (0.01-0.034) ng/mL NT-Pro-B Natriuret Pep 1210 H (<125) pg/mL Total Protein 6.6 (6.3-8.2) g/dL Albumin 3.8 (3.5-5.0) g/dL Globulin 2.8 (1.7-4.1) g/dL Albumin/Globulin Ratio 1.4 (1.0-2.8) Imaging Data ECHO: Radiologist's Impression: Left ventricle is normal size and wall thickness. Left ventricular ejection fraction is estimated to be 45%. Left ventricular function is mildly worsened compared to previous exam. Part of the apex is akinetic mostly along the apical septum There is right ventricle is normal size right ventricular systolic function is normal. The right ventricular systolic pressure is estimated to be at least 77 mg of mercury based on estimated right atrial pressure of 8 mg of mercury. Compared to the prior echo exam there has been an increase in the severity of pulmonary hypertension Left atrium is severely dilated the left atrium is markedly increased in size since prior echo examined There is severe mitral regurgitation compared to prior echo study there has been increase in severity of mitral regurgitation 26 mm EdwardSAPIEN 3 Ultra tavr the peak aortic velocity 3.3 millimeters/second. There is [id number] perivalvular regurgitation around prosthetic aortic valve MDM Narrative Medical decision making narrative: Sudden onset shortness of breath after recent hospitalization. Heart rate upper 90s on arrival, saturating 93% on room air. Differential includes PE, heart failure, pneumonia. Placed on court monitor, CT angio ordered, other labs and EKG ordered. CTA shows no actue pulmonary embolism, however bilateral pleural effusions present. Patient denies history of heart failure and denies use of Lasix or other diuretics. Call placed to patient's interventional team at [facility] for recommendations. Spoke with Dr. Vogt of interventional cardiology. He recommends an echocardiogram. If EF is normal than this indicates diastolic heart failure and patient can be started on gentle diuresis. Request call back if significantly decreased EF or if presence of heart block. Echocardiogram ordered Dr. Nam 7:20am signed out to me by Dr. Gordillo I have seen evaluated patient myself. He is no longer requiring oxygen but still feels clammy no significant shortness of breath. Awaiting echocardiogram this morning and then Re consults [place]. Temperature is retaken due to clamminess and is 98.1 Tree5DR. Celis called with echo results EF 45% with severe MR. Awaited final report [address] Dr. Sommers at [facility] updated on echo results including EF of 45% and severe MR and patient's symptoms test results agrees with on Lasix 20 outpatient and follow-up with primary occupational therapy assistant Patient reports that he actually has appointments scheduled and a repeat echo I recommend he keep that. He has given a prescription for Lasix he understands to return to the ED 13:45- echo report faxed over, still not in [facility]. Critical Care Time <Paz Nam DO - Last Filed: 04/10/24 14:37> Critical Care Time Critical Care Time: Yes Total Critical Care Time: 32 Attestation: The high probability of a clinically significant, sudden or life threatening deterioration of the cardiovascular system(s) required my full and direct attention, intervention and personal management. The aggregate critical care time was 32 minutes. This time is in addition to time spent performing reported procedures but includes the following: x Data Review and interpretation x Patient assessment and monitoring of vital signs x Documentation x Medication orders and management Discharge Plan Departure Patient Disposition: Home Clinical Impression: Pulmonary edema Instructions: Heart Failure Activity Restrictions/Additional Instructions: *You have been diagnosed with CHF *What to do: At this time please follow-up with your general occupational therapy assistant *Continue to take medications as directed Lasix 20 mg once a day for 3 days *Follow up with your primary care provider in 2-3 days or call [phone] *Return to ER if you should have increasing chest pain shortness of breath fever or any new, worsening or concerning symptoms Prescriptions: New furosemide [Lasix] 20 mg tablet 20 mg PO DAILY Qty: 4 0RF No Action clobetasol 0.05 % Cream 1 applic TOPICAL BID methotrexate sodium 2.5 mg Tablet 20 mg PO QWEEK folic acid 1 mg Tablet 2 mg PO DAILY cholecalciferol (vitamin D3) [Vitamin D3] 50 mcg (2,000 unit) Capsule 50 mcg PO DAILY calcipotriene-betamethasone 0.005-0.064 % Cream 1 applic TOPICAL BID (DME) DreamStation Auto CPAP See Rx Instructions .Route .MEDSUPPLY Rx Instructions: Min Pressure: 6 Max Pressure: 14 lisinopril 40 mg tablet 40 mg PO DAILY amlodipine 5 mg tablet 5 mg PO DAILY aspirin 81 mg tablet 81 mg PO DAILY atorvastatin 80 mg tablet 40 mg PO DAILY pantoprazole 20 mg tablet,delayed release (DR/EC) 20 mg PO DAILY chlorthalidone 25 mg tablet 12.5 mg PO DAILY nitroglycerin 0.4 mg tablet, sublingual 0.4 mg sublingual ONCE PRN (Reason: chest pain) Rx Instructions: as a single dose; administer 5-10 minutes before situation known to precipitate angina attack Referrals: Cristina Roberts MD [Primary Care Provider] - Stand Alone Forms: Patient Portal/API
--- NOTE | 2024-04-10 05:11 | EKG_ITS ---
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
[2024-04-10 05:25] LABS: Add Manual Diff / Slide Review NO; Basophils Absolute Auto 0 /uL (0-100); Basophils Percent Auto 0.4 % (0-2); Eosinophils Absolute Auto 300 /uL (0-450); Eosinophils Percent Auto 2.5 % (2-4); Lymphocytes Absolute Auto 900 /uL (1100-4500); Lymphocytes Percent Auto 9.3 % (25-40); Mean Corpuscular HGB Conc 34.3 % (30-36); Mean Corpuscular Hemoglobin 34.8 PG (26-34); Mean Corpuscular Volume 101.4 fL (80-100); Monocytes Absolute Auto 800 /uL (0-900); Monocytes Percent Auto 7.6 % (3-14); Neutrophils Absolute Auto 8200 /uL (1500-7000); Neutrophils Percent Auto 80.2 % (50-75); Platelet Count 205 X10^3/uL (150-400); Red Blood Cell Count 3.15 X10^6/uL (4.5-5.9); Red Cell Distribution Width 14.7 % (11.6-14.8); White Blood Cell Count 10.2 X10^3/uL (4.5-11.0)
[2024-04-10 05:35] LABS: INR 1.1 (0.9-1.3); Prothrombin Time 12.6 SECONDS (9.4-12.5)
[2024-04-10 05:39] LABS: Alanine Aminotransferase 19 IU/L (<50); Albumin 3.8 g/dL (3.5-5.0); Albumin Globulin Ratio 1.4 (1.0-2.8); Alkaline Phosphatase 81 U/L (38-126); Aspartate Aminotransferase 36 IU/L (17-59); BUN Creatinine Ratio 20.9 (6-22); Bilirubin Total 0.8 mg/dL (0.2-1.3); Blood Urea Nitrogen 18 mg/dL (9-20); Calcium 9.8 mg/dL (8.4-10.2); Carbon Dioxide 25 mmol/L (22-32); Chloride 104 mmol/L (98-107); Creatine Kinase 89 U/L (55-170); Estimated Glomerular Filt Rate > 60 mL/min (>60); Globulin 2.8 g/dL (1.7-4.1); Glucose 99 mg/dL (80-110); HEMOLYSIS < 15 (0-50); Potassium 3.5 mmol/L (3.4-5.1); Sodium 134 mmol/L (137-145); Total Protein 6.6 g/dL (6.3-8.2)
[2024-04-10 05:51] LABS: NT-proBNP (BNP-Adult 18+) 1210 pg/mL (<125); Troponin I 0.054 ng/mL (0.01-0.034)
[2024-04-10] MEDS: FUROSEMIDE 40 MG/4 ML VIAL IV (06:03)
--- NOTE | 2024-04-10 07:01 | DI.ECHO.S_ITS ---
[facility]+ [facility] : : [address] : : [place] : : [id number] : : Phone: [phone] Echocardiogram Report + + :Name: PHILIP ZHANG Study Date: 04/10/2024 Height: 73 in : :Hospital ReadingLocation: Weight: 220 lb : : Gender: Male BSA: 2.2 m2 : :: 1955 Age: 68 yrs BP: 153/72 mmHg: :Reason For Study: PULMONARY EDEMA, 1 WEEK S/P TAVR : :Ordering Physician: ALEXANDR, : :TERRELL ZACARIAS Performed By: Freddie Nesbitt : :Referring: TERRELL STRANGE MD : + + Interpretation Summary The left ventricle is normal in size and wall thickness. Left ventricular ejection fraction is estimated to be 45%. Left ventricular function has mildly worsened compared to the previous exam. Part of the apex is akinetic, mostly along the apical septum. The right ventricle is normal size. The right ventricular systolic function is normal. The right ventricular systolic pressure is estimated to be at least 77 mmHg based on an estimated right atrial pressure of 8 mm Hg. Compared to the prior echo exam, there has been an increase in the severity of pulmonary hypertension. The left atrium is severely dilated. The left atrium has markedly increased in size since the prior echo exam. There is severe mitral regurgitation. Compared to the prior echo study, there has been an increase in the severity of mitral regurgitation. 26mm GARCIA MIGEL 3 ULTRA TAVR The peak aortic velocity is 3.33 m/sec. There is mild to moderate perivalvular regurgitation around the prosthetic aortic valve. There is mild to moderate tricuspid regurgitation. Procedure: A two-dimensional transthoracic echocardiogram with color flow and Doppler was performed. The study quality was technically adequate. Comparison is made with the echocardiogram of 11/11/2023. POST TAVR ECHO 04/01/24 UNAVAILABLE. The patient was in atrial fibrillation with heart rates between 62-89 bpm during the exam. Left Ventricle: The left ventricle is normal in size and wall thickness. Left ventricular ejection fraction is estimated to be 45%. Left ventricular function has mildly worsened compared to the previous exam. Part of the apex is akinetic, mostly along the apical septum. Diastolic parameters suggest probable elevated filling pressures. Right Ventricle: The right ventricle is normal size. The right ventricular systolic function is normal. Atria: The left atrium is severely dilated. The left atrium has markedly increased in size since the prior echo exam. The right atrium is mildly dilated. The interatrial septum grossly appears intact with no obvious evidence for an atrial septal defect. Mitral Valve: The mitral valve is normal. There is no mitral valve stenosis. There is severe mitral regurgitation. Compared to the prior echo study, there has been an increase in the severity of mitral regurgitation. Aortic Valve: 26mm GARCIA MIGEL 3 ULTRA TAVR. There is mild to moderate perivalvular regurgitation around the prosthetic aortic valve. The peak aortic velocity is 3.33 m/sec. The aortic valve mean gradient is 24.2 mmHg. Tricuspid Valve: The tricuspid valve is normal. There is no tricuspid stenosis. There is mild to moderate tricuspid regurgitation. The right ventricular systolic pressure is estimated to be at least 77 mmHg based on an estimated right atrial pressure of 8 mm Hg. Compared to the prior echo exam, there has been an increase in the severity of pulmonary hypertension. Pulmonic Valve: The pulmonic valve is not well visualized. There is no pulmonic valvular stenosis. There is no pulmonic valvular regurgitation. Great Vessels: The aortic root is mildly dilated. The ascending aorta could not be visualized. The IVC is dilated (diameter is greater than 2.1 cm) yet it collapses greater than 50% with a sniff. This suggests a right atrial pressure of 8 mm Hg. Pericardium/ Pleura There is no pericardial effusion. There is no pleural effusion. MMode/2D Measurements & Calculations LVIDd: 5.7 cm LVOT diam: 2.0 cm LVIDs: 4.7 cm Ao root diam: 4.0 cm FS: 17.8 % IVSd: 0.98 cm LVPWd: 1.1 cm LV zavala. diameter/BSA (cm/m^2): 2.5 LV sys. diameter/BSA (cm/m^2): 2.1 LA A2 area: 36.5 cm2 RA long axis: 5.9 cm LA A4 area: 33.3 cm2 RA area: 17.6 cm2 LA length (vol): 6.7 cm RA vol: 44.6 ml LA vol: 153.9 ml RA : 19.9 ml/m2 LA vol index: 68.7 ml/m2 IVC diam: 2.4 cm RVD1 (basal): 3.7 cm RVD2 (mid): 3.4 cm TAPSE: 2.4 cm Doppler Measurements & Calculations Ao V2 max: 333.3 cm/sec LVOT Max Francisco: 100.9 cm/sec Ao V2 mean: 229.5 cm/sec LV V1 max P.1 mmHg Ao max P.4 mmHg LV V1 VTI: 21.4 cm Ao mean P.2 mmHg JARET(I,D): 0.92 cm2 Ao V2 VTI: 69.9 cm JARET(V,D): 0.91 cm2 sev ratio: 0.31 JARET indexed to BSA (cm^2/m^2): 0.41 AI P1/2t: 310.4 msec AI dec slope: 471.2 cm/sec2 MV E max francisco: 136.4 cm/sec TR max francisco: 415.7 cm/sec MV A max francisco: 74.6 cm/sec TR max P.1 mmHg MV E/A: 1.8 PA V2 max: 124.9 cm/sec Med Peak E' Francisco: 5.1 cm/sec PA V2 mean: 75.5 cm/sec E/E' med: 26.9 PA mean P.7 mmHg Lat Peak E' Francisco: 6.1 cm/sec PA pr(Accel): 41.3 mmHg E/E' lat: 22.2 E/e' average: 24.6 MV dec time: 0.15 sec MR ERO: 0.47 cm2 MR PISA: 7.6 cm2 SV(LVOT): 64.2 ml MR flow rate: 303.0 cm3/sec MR PISA radius: 1.1 cm Reading Physician:12:08 PM
[2024-04-10 07:47] LABS: Troponin I 0.061 ng/mL (0.01-0.034)
[2024-04-10] MEDS: FUROSEMIDE 40 MG/4 ML VIAL 20 MG IV (11:28)
== END 2024-04-10 13:20 | disposition home or self-care (01) ==
PROVIDERS: Emergency Medicine; Emergency Provider Emergency Medicine; PCP Student in an Organized Health Care Education/Training Program
DX: J81.1 Chronic pulmonary edema (principal); I50.9 Heart failure, unspecified; I10 Essential (primary) hypertension; Z79.899 Other long term (current) drug therapy; R79.89 Other specified abnormal findings of blood chemistry
CPT/HCPCS: 36415; 71275; 80053; 82550; 83880; 84484; 85025; 85610; 93005; 93306; 96374; 96376; 99285; J1940; Q9967

== ENCOUNTER 2024-04-21 01:47 | Emergency (ER) | payer MEDICARE, OTHER, SELFPAY ==
[2024-04-21] VITALS (12 sets, daily range): BP systolic 124–166; BP diastolic 58–79; PULSE 77–92; RESP 13–33; TEMP 36.6–36.7; O2SAT 95–99; BMI 28.5
--- NOTE | 2024-04-21 01:58 | DI.RAD.S_ITS ---
PROCEDURE: XR CHEST 1V INDICATIONS: short of breath TECHNIQUE: One view of the chest was acquired. COMPARISON: [facility], CR, XR CHEST 1V, 07/21/2018, 5:15. FINDINGS: Surgical changes and devices: None. Lungs and pleura: Central pulmonary vascular congestion is present. Patchy airspace disease noted in left lung base and in the right lung, consistent with multifocal pneumonia. No pleural effusion or pneumothorax. Mediastinum: Mediastinal contours appear normal. Heart is slightly enlarged. Bones and chest wall: No suspicious bony lesions. Overlying soft tissues appear unremarkable. IMPRESSION: Cardiomegaly with mild central pulmonary vascular congestion. Mild biateral airspace disease consistent with multifocal pneumonia. Dictated by: Bebeto Hicks M.D. on 04/21/2024 at 8:22 Approved by: Bebeto Hicks M.D. on 04/21/2024 at 8:27
--- NOTE | 2024-04-21 02:17 | EKG_ITS ---
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
[2024-04-21 02:26] LABS: Add Manual Diff / Slide Review NO; Basophils Absolute Auto 0 /uL (0-100); Basophils Percent Auto 0.3 % (0-2); Eosinophils Absolute Auto 200 /uL (0-450); Eosinophils Percent Auto 2.2 % (2-4); Hematocrit 29.4 % (41-53); Hemoglobin 10.1 g/dL (13.5-17.5); Lymphocytes Absolute Auto 1500 /uL (1100-4500); Lymphocytes Percent Auto 15.5 % (25-40); Mean Corpuscular HGB Conc 34.2 % (30-36); Mean Corpuscular Hemoglobin 34.4 PG (26-34); Mean Corpuscular Volume 100.5 fL (80-100); Monocytes Absolute Auto 400 /uL (0-900); Monocytes Percent Auto 4.6 % (3-14); Neutrophils Absolute Auto 7300 /uL (1500-7000); Neutrophils Percent Auto 77.4 % (50-75); Platelet Count 213 X10^3/uL (150-400); Red Blood Cell Count 2.92 X10^6/uL (4.5-5.9); Red Cell Distribution Width 14.5 % (11.6-14.8); White Blood Cell Count 9.5 X10^3/uL (4.5-11.0)
[2024-04-21 02:32] LABS: INR 1.1 (0.9-1.3); Prothrombin Time 12.5 SECONDS (9.4-12.5)
[2024-04-21 02:37] LABS: Alanine Aminotransferase 24 IU/L (<50); Albumin Globulin Ratio 1.3 (1.0-2.8); Alkaline Phosphatase 76 U/L (38-126); Aspartate Aminotransferase 46 IU/L (17-59); BUN Creatinine Ratio 17.6 (6-22); Bilirubin Total 1.1 mg/dL (0.2-1.3); Blood Urea Nitrogen 15 mg/dL (9-20); Calcium 8.8 mg/dL (8.4-10.2); Carbon Dioxide 25 mmol/L (22-32); Chloride 100 mmol/L (98-107); Estimated Glomerular Filt Rate > 60 mL/min (>60); Globulin 3.2 g/dL (1.7-4.1); Glucose 107 mg/dL (80-110); HEMOLYSIS < 15 (0-50); Lactate (Lactic Acid) 1.5 mmol/L (0.7-2.1); Potassium 3.6 mmol/L (3.4-5.1); Sodium 130 mmol/L (137-145); Total Protein 7.2 g/dL (6.3-8.2)
[2024-04-21 02:48] LABS: NT-proBNP (BNP-Adult 18+) 937 pg/mL (<125); Troponin I 0.042 ng/mL (0.01-0.034)
--- NOTE | 2024-04-21 03:31 | ED_ITS ---
HPI - SOB/Dyspnea <Jerrica Fairbanks, DO - Last Filed: 04/22/24 06:05> General Chief Complaint: Shortness of Breath/Dyspnea Stated Complaint: sob Time Seen by Provider: 04/21/24 03:31 Source: patient, RN notes reviewed and old records reviewed Mode of arrival: Ambulatory Limitations: no limitations History of Present Illness HPI Narrative: 68-year-old male with history of coronary artery disease cardiac stent 2013, TAVR at [place] for aortic stenosis on 04/01/2024. Patient presents with complaint of shortness of breath he was seen here on 04/10/2024 found to have pulmonary edema with an EF of 45% and severe mitral regurg. Patient was given a short course of Lasix, states he was also started on metoprolol by his physician with a goal this systolic pressure less than 110 and a heart rate less to 70 he states he has not quite been able to achieve that. States his breathing has been a little bit up and down but worse this evening in particular. He states no fevers or chills no cold symptoms. He has had a little bit of a cough slightly worse this evening but persistent since his surgery. He denies any chest pain or pressure, has had some phlegm in the mornings. He states no orthopnea, he notes quite a bit of dyspnea with the exertion. Denies any swelling of extremities. No fevers or chills, no nausea or vomiting, no diaphoresis no issues with bowel movements or urination. No syncope. Patient states only new medications were Lasix for 4 days and then he has been persistently taking 12.5 mg of metoprolol daily in the morning. Patient states no known drug allergies, no tobacco, did have several drinks of bourbon this evening but no other recreational drugs. He states that has not his typical. He is following with cardiology at [place] where his TAVR was performed. He has been following with Dr. Monsivais for Cardiology. Home medications include lisinopril 40 mg, amlodipine 5 mg, pantoprazole 20 mg, chlorthalidone 12.5 mg, methotrexate daily, he has been taking metoprolol 12.5 mg daily. And aspirin 81 mg nightly and Lipitor 40 mg nightly. Related Data Home Medications Medication Instructions Recorded Confirmed amlodipine 5 mg tablet 5 mg PO DAILY for high BP 12/21/20 04/10/24 aspirin 81 mg tablet 81 mg PO DAILY for CV prophylaxis 12/21/20 04/10/24 atorvastatin 80 mg tablet 40 mg PO DAILY 12/21/20 04/10/24 chlorthalidone 25 mg tablet 12.5 mg PO DAILY diuretic for high 12/21/20 04/10/24 BP lisinopril 40 mg tablet 40 mg PO DAILY 12/21/20 04/10/24 nitroglycerin 0.4 mg sublingual 0.4 mg sublingual ONCE PRN chest 12/21/20 04/10/24 tablet pain pantoprazole 20 mg tablet,delayed 20 mg PO DAILY on empty stomach 12/21/20 04/10/24 release [employer] Auto CPAP 05/17/21 08/01/22 calcipotriene 0.005 1 applic topical BID 03/21/22 04/10/24 %-betamethasone 0.064 % topical cream cholecalciferol (vitamin D3) 50 50 mcg PO DAILY 03/21/22 04/10/24 mcg (2,000 unit) capsule (Vitamin D3) clobetasol 0.05 % topical cream 1 applic topical BID 03/21/22 04/10/24 folic acid 1 mg tablet 2 mg PO DAILY 03/21/22 04/10/24 methotrexate sodium 2.5 mg tablet 20 mg PO QWEEK 03/21/22 04/10/24 Previous Rx's Medication Instructions Recorded furosemide 20 mg tablet (Lasix) 20 mg PO DAILY #4 tabs 04/10/24 empagliflozin 10 mg tablet 10 mg PO DAILY #30 tabs 04/21/24 (Jardiance) furosemide 20 mg tablet (Lasix) 20 mg PO DAILY #60 tabs 04/21/24 Allergies Allergy/AdvReac Type Severity Reaction Status Date / Time No Known Drug Allergies Allergy Verified 10/19/23 09:43 Review of Systems <Jerrica Fairbanks DO - Last Filed: 04/22/24 06:05> Review of Systems ROS Unobtainable: All systems reviewed & are unremarkable except as noted in HPI and below Patient History <Jerrica Fairbanks DO - Last Filed: 04/22/24 06:05> Medical History 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) Allergic rhinosinusitis GERD (gastroesophageal reflux disease) Ischemic heart disease Snoring Primary insomnia Obstructive sleep apnea of adult Hypertension Hyperlipidemia Surgical History History of heart artery stent Family History Brother Hx of CABG Social History marital status: details: to Misty, lives in [place] household members: spouse lives independently: Yes caregiver/support person: No housing: house [employer]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 HEENT: Head normocephalic, atraumatic, EOMI, pupils reactive, face symmetric, moist mucous membranes NECK: Supple, full range of motion CARDIOVASCULAR: Regular rate and rhythm without murmurs, rubs or gallops. No edema bilateral lower extremities. No JVD. RESPIRATORY: Breath sounds equal bilaterally, patient has a little bit of coarseness/faint wheeze on the right, compared to the left. Crackles, no tachypnea, no accessory muscle use. ABDOMEN: Soft, nontender. Normoactive bowel sounds all 4 quadrants. No guarding or rebound, rigidity, no mass : No CVA tenderness EXTREMITIES: Normal range of motion, no clubbing or edema. Neurovascularly intact NEUROLOGICAL: Cranial nerves II through XII grossly intact. Moving all extremities SKIN: Warm, dry, no petechiae, no rashes or lesions. Initial Vital Signs Initial Vital Signs: Vital Signs Temperature 98.1 F 04/21/24 01:51 Pulse Rate 90 04/21/24 01:51 Respiratory Rate 24 04/21/24 01:51 Pulse Oximetry 99 04/21/24 01:51 Oxygen Delivery Method Room Air 04/21/24 01:51 <Paz Nam, DO - Last Filed: 04/21/24 14:54> Initial Vital Signs Initial Vital Signs: Vital Signs Temperature 98.1 F 04/21/24 01:51 Pulse Rate 90 04/21/24 01:51 Respiratory Rate 24 04/21/24 01:51 Pulse Oximetry 99 04/21/24 01:51 Oxygen Delivery Method Room Air 04/21/24 01:51 Course <Jerrica Fairbanks DO - Last Filed: 04/22/24 06:05> Orders Ordered: Discontinued Medications Albuterol/Ipratropium (Albuterol/Ipratropium 3 Ml Ampul) 3 ml INH NOW ONE Stop: 04/21/24 04:14 Last Admin: 04/21/24 04:29 Dose: 3 ml Documented By: AB Furosemide (Furosemide 40 Mg/4 Ml Vial) 40 mg IV NOW ONE Stop: 04/21/24 04:14 Last Admin: 04/21/24 04:29 Dose: 40 mg Documented By: AB Vital Signs Vital signs: Vital Signs - 8 hr 04/21/24 07:00 04/21/24 07:01 04/21/24 07:01 Temperature Pulse Rate 80 80 Respiratory Rate 18 23 Blood Pressure 160/70 H Pulse Oximetry 95 96 04/21/24 07:20 04/21/24 07:30 04/21/24 07:30 Temperature 97.9 F Pulse Rate 79 Respiratory Rate 18 Blood Pressure 142/68 H Pulse Oximetry 95 04/21/24 08:00 04/21/24 08:00 04/21/24 08:30 Temperature Pulse Rate 78 Respiratory Rate 21 Blood Pressure 158/73 H 166/79 H Pulse Oximetry 95 04/21/24 08:30 Temperature Pulse Rate 79 Respiratory Rate 16 Blood Pressure Pulse Oximetry 96 <Paz Nam DO - Last Filed: 04/21/24 14:54> Orders Ordered: Discontinued Medications Albuterol/Ipratropium (Albuterol/Ipratropium 3 Ml Ampul) 3 ml INH NOW ONE Stop: 04/21/24 04:14 Last Admin: 04/21/24 04:29 Dose: 3 ml Documented By: AB Furosemide (Furosemide 40 Mg/4 Ml Vial) 40 mg IV NOW ONE Stop: 04/21/24 04:14 Last Admin: 04/21/24 04:29 Dose: 40 mg Documented By: AB Vital Signs Vital signs: Vital Signs - 8 hr 04/21/24 07:00 04/21/24 07:01 04/21/24 07:01 Temperature Pulse Rate 80 80 Respiratory Rate 18 23 Blood Pressure 160/70 H Pulse Oximetry 95 96 04/21/24 07:20 04/21/24 07:30 04/21/24 07:30 Temperature 97.9 F Pulse Rate 79 Respiratory Rate 18 Blood Pressure 142/68 H Pulse Oximetry 95 04/21/24 08:00 04/21/24 08:00 04/21/24 08:30 Temperature Pulse Rate 78 Respiratory Rate 21 Blood Pressure 158/73 H 166/79 H Pulse Oximetry 95 04/21/24 08:30 Temperature Pulse Rate 79 Respiratory Rate 16 Blood Pressure Pulse Oximetry 96 MDM - SOB/Dyspnea <Jerrica Fairbanks, - Last Filed: 04/22/24 06:05> Lab Data 04/21/24 02:05 04/21/24 02:05 Labs: Lab Results 04/21/24 04/21/24 Range/Units 02:05 04:20 WBC 9.5 (4.5-11.0) X10^3/uL RBC 2.92 L (4.5-5.9) X10^6/uL Hgb 10.1 L (13.5-17.5) g/dL Hct 29.4 L (41-53) % MCV 100.5 H (80-100) fL MCH 34.4 H (26-34) PG MCHC 34.2 (30-36) % RDW 14.5 (11.6-14.8) % Plt Count 213 (150-400) X10^3/uL Neut % (Auto) 77.4 H (50-75) % Lymph % (Auto) 15.5 L (25-40) % [place] % (Auto) 4.6 (3-14) % Eos % (Auto) 2.2 (2-4) % Baso % (Auto) 0.3 (0-2) % Neut # (Auto) 7300 H (7938-4431) /uL Lymph # (Auto) 1500 (3095-1430) /uL [place] # (Auto) 400 (0-900) /uL Eos # (Auto) 200 (0-450) /uL Baso # (Auto) 0 (0-100) /uL PT 12.5 (9.4-12.5) SECONDS INR 1.1 (0.9-1.3) Sodium 130 L (137-145) mmol/L Potassium 3.6 (3.4-5.1) mmol/L Chloride 100 (98-107) mmol/L Carbon Dioxide 25 (22-32) mmol/L BUN 15 (9-20) mg/dL Creatinine 0.85 (0.66-1.25) mg/dL Estimated GFR > 60 (>60) mL/min BUN/Creatinine Ratio 17.6 (6-22) Glucose 107 (80-110) mg/dL Lactate 1.5 (0.7-2.1) mmol/L Calcium 8.8 (8.4-10.2) mg/dL Total Bilirubin 1.1 (0.2-1.3) mg/dL AST 46 (17-59) IU/L ALT 24 (<50) IU/L Alkaline Phosphatase 76 (38-126) U/L Troponin I 0.042 H 0.036 H (0.01-0.034) ng/mL NT-Pro-B Natriuret Pep 937 H (<125) pg/mL Total Protein 7.2 (6.3-8.2) g/dL Albumin 4.0 (3.5-5.0) g/dL Globulin 3.2 (1.7-4.1) g/dL Albumin/Globulin Ratio 1.3 (1.0-2.8) Imaging Data Chest x-ray: Radiologist's Impression: Not had read shows multifocal pulmonary infiltrates within the right lung no pneumothorax no pleural effusion or congestive changes cardiac vascular silhouettes normal visualized soft tissue and osseous structures unremarkable. ECG Data Attestation: I personally reviewed and interpreted this ECG as follows: Prior ECG tracings: available for review Interpretation: Sinus rhythm premature atrial complexes left bundle-branch block rate 85 SD 200 QRS of 184 QTC of 504, patient's EKG occasional PVCs does look similar to prior from 04/10/2024. EKG 2. Shows sinus rhythm occasional PVCs left bundle-branch block rate of 77 SD 206 QRS of 162, QTC of 488. EKG appears similar with no acute ST changes. MDM Narrative Medical decision making narrative: 68-year-old male with history of coronary artery disease status post stent, aortic stenosis status post TAVR on 04/01 at [facility]. Patient presented with shortness of breath while trying to get to sleep feels very similar to recent visit in the ED on 04/10/2024. White count of 9.5 hemoglobin of 10.1 patient has been 11-12 in the past month, patient has macrocytosis at baseline. Platelets are 213 with a predominance of neutrophils. INR is 1.1, sodium is 130 potassium 3.6 chloride 100 CO2 is 25 with a BUN of 15 creatinine 0.85, glucose is 107 lactate 1.5 calcium 8.8 with a bilirubin of 1.1 AST of 46 ALT 24 and alk-phos is 76. Troponins 0.042, BNP is 937. Improved from 08/18 10 April 10. Troponin was repeated and is trending downward at 0.036 Chest x-ray shows multifocal pulmonary infiltrates right lung no pneumothorax, no pleural effusion congestive changes. EKG shows sinus rhythm premature atrial contraction, left bundle-branch block. Patient has prior from 04/10/2024 that appears similar to today. Patient had ED visit on 04/10/2024 head CTA at that time showed no PE but bilateral pleural effusions no prior history of heart failure Lasallison spoke with interventional cardiology recommended echo and if normal EF gentle diuresis. EF was 45% with severe MR. This was reviewed with Cardiology at [place] and patient was started on Lasix 20 plan for follow up with primary cardiology. Recheck after DuoNeb patient states he is some mild improvement. He is also started to have some urine output from the Lasix. Consulted with cardiology at [place] where patient had surgery <Paz Nam, - Last Filed: 04/21/24 14:54> Lab Data Labs: Lab Results 04/21/24 04/21/24 Range/Units 02:05 04:20 WBC 9.5 (4.5-11.0) X10^3/uL RBC 2.92 L (4.5-5.9) X10^6/uL Hgb 10.1 L (13.5-17.5) g/dL Hct 29.4 L (41-53) % MCV 100.5 H (80-100) fL MCH 34.4 H (26-34) PG MCHC 34.2 (30-36) % RDW 14.5 (11.6-14.8) % Plt Count 213 (150-400) X10^3/uL Neut % (Auto) 77.4 H (50-75) % Lymph % (Auto) 15.5 L (25-40) % [place] % (Auto) 4.6 (3-14) % Eos % (Auto) 2.2 (2-4) % Baso % (Auto) 0.3 (0-2) % Neut # (Auto) 7300 H (5323-2314) /uL Lymph # (Auto) 1500 (3369-6652) /uL [place] # (Auto) 400 (0-900) /uL Eos # (Auto) 200 (0-450) /uL Baso # (Auto) 0 (0-100) /uL PT 12.5 (9.4-12.5) SECONDS INR 1.1 (0.9-1.3) Sodium 130 L (137-145) mmol/L Potassium 3.6 (3.4-5.1) mmol/L Chloride 100 (98-107) mmol/L Carbon Dioxide 25 (22-32) mmol/L BUN 15 (9-20) mg/dL Creatinine 0.85 (0.66-1.25) mg/dL Estimated GFR > 60 (>60) mL/min BUN/Creatinine Ratio 17.6 (6-22) Glucose 107 (80-110) mg/dL Lactate 1.5 (0.7-2.1) mmol/L Calcium 8.8 (8.4-10.2) mg/dL Total Bilirubin 1.1 (0.2-1.3) mg/dL AST 46 (17-59) IU/L ALT 24 (<50) IU/L Alkaline Phosphatase 76 (38-126) U/L Troponin I 0.042 H 0.036 H (0.01-0.034) ng/mL NT-Pro-B Natriuret Pep 937 H (<125) pg/mL Total Protein 7.2 (6.3-8.2) g/dL Albumin 4.0 (3.5-5.0) g/dL Globulin 3.2 (1.7-4.1) g/dL Albumin/Globulin Ratio 1.3 (1.0-2.8) MDM Narrative Medical decision making narrative: 68-year-old male with history of coronary artery disease status post stent, aortic stenosis status post TAVR on 04/01 at [facility]. Patient presented with shortness of breath while trying to get to sleep feels very similar to recent visit in the ED on 04/10/2024. White count of 9.5 hemoglobin of 10.1 patient has been 11-12 in the past month, patient has macrocytosis at baseline. Platelets are 213 with a predominance of neutrophils. INR is 1.1, sodium is 130 potassium 3.6 chloride 100 CO2 is 25 with a BUN of 15 creatinine 0.85, glucose is 107 lactate 1.5 calcium 8.8 with a bilirubin of 1.1 AST of 46 ALT 24 and alk-phos is 76. Troponins 0.042, BNP is 937. Improved from 08/18 10 April 10. Troponin was repeated and is trending downward at 0.036 Chest x-ray shows multifocal pulmonary infiltrates right lung no pneumothorax, no pleural effusion congestive changes. EKG shows sinus rhythm premature atrial contraction, left bundle-branch block. Patient has prior from 04/10/2024 that appears similar to today. Patient had ED visit on 04/10/2024 head CTA at that time showed no PE but bilateral pleural effusions no prior history of heart failure Richard spoke with interventional cardiology recommended echo and if normal EF gentle diuresis. EF was 45% with severe MR. This was reviewed with Cardiology at [place] and patient was started on Lasix 20 plan for follow up with primary cardiology. Recheck after DuoNeb patient states he is some mild improvement. He is also started to have some urine output from the Lasix. Consulted with cardiology at [place] where patient had surgery Patient signed out to me by Dr. Fairbanks I have seen evaluated patient myself. He is overall feeling a lot better he says that his breathing is much better after Lasix. Dr. Fairbnaks talked with who recommended Lasix 20 mg daily and Jardiance 10 mg daily. Patient is scheduled to see cardiology and have a repeat echo on May 07. No need for a repeat echo today. 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 you do have severe mitral regurgitation likely causing some of your shortness of breath *Continue to take medications as directed Lasix 20 mg once a day Jardiance 10 mg daily *Follow up with your primary care provider in 2-3 days or call [phone] *Return to ER if you should have increasing chest pain shortness of breath or any new, worsening or concerning symptoms Prescriptions: New furosemide [Lasix] 20 mg tablet 20 mg PO DAILY Qty: 60 0RF Jardiance 10 mg tablet 10 mg PO DAILY Qty: 30 0RF No Action clobetasol 0.05 % Cream 1 applic TOPICAL BID methotrexate sodium 2.5 mg Tablet 20 mg PO QWEEK folic acid 1 mg Tablet 2 mg PO DAILY cholecalciferol (vitamin D3) [Vitamin D3] 50 mcg (2,000 unit) Capsule 50 mcg PO DAILY calcipotriene-betamethasone 0.005-0.064 % Cream 1 applic TOPICAL BID furosemide [Lasix] 20 mg tablet 20 mg PO DAILY Qty: 4 0RF (DME) [employer] Auto CPAP See Rx Instructions .Route .MEDSUPPLY Rx Instructions: Min Pressure: 6 Max Pressure: 14 lisinopril 40 mg tablet 40 mg PO DAILY amlodipine 5 mg tablet 5 mg PO DAILY aspirin 81 mg tablet 81 mg PO DAILY atorvastatin 80 mg tablet 40 mg PO DAILY pantoprazole 20 mg tablet,delayed release (DR/EC) 20 mg PO DAILY chlorthalidone 25 mg tablet 12.5 mg PO DAILY nitroglycerin 0.4 mg tablet, sublingual 0.4 mg sublingual ONCE PRN (Reason: chest pain) Rx Instructions: as a single dose; administer 5-10 minutes before situation known to precipitate angina attack Referrals: Cristina Roberts MD [Primary Care Provider] - Stand Alone Forms: Patient Portal/API
--- NOTE | 2024-04-21 04:28 | EKG_ITS ---
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
[2024-04-21] MEDS: ALBUTEROL/IPRATROPIUM 3 ML AMPUL INH (04:29)
[2024-04-21] MEDS: FUROSEMIDE 40 MG/4 ML VIAL IV (04:29)
[2024-04-21 04:54] LABS: Troponin I 0.036 ng/mL (0.01-0.034)
--- NOTE | 2024-04-21 07:21 | PC.NURSE ---
Pt states he feels some chest pain from coughing so much yesterday; pt reports he has been able to breathe much better and has scant amount of mucus production; pt denies wanting a bag to catch sputum delfino. Pt urinating well and tolerating fluids. Pt updated on plan of care. Abnormal heart rhythm noted on monitor--PAC, bundle branch?, PVC, ... MD aware. Pt alert and oriented. GCS 15.
== END 2024-04-21 08:50 | disposition home or self-care (01) ==
PROVIDERS: Emergency Medicine; Emergency Provider Emergency Medicine; PCP Student in an Organized Health Care Education/Training Program
DX: I34.0 Nonrheumatic mitral (valve) insufficiency (principal); I44.7 Left bundle-branch block, unspecified; R79.89 Other specified abnormal findings of blood chemistry
CPT/HCPCS: 36415; 71045; 80053; 83605; 83880; 84484; 85025; 85610; 93005; 96374; 99284; J1940

== ENCOUNTER → 2024-05-07 06:51 | Outpatient (CLI) | payer MEDICARE, OTHER, SELFPAY ==
--- NOTE | 2024-05-07 06:53 | DI.ECHO.S_ITS ---
[facility] : : [address] : [place] : : [id number] : : Phone: [phone] Echocardiogram Report + + :Name: PHILIP ZHANG Study Date: 05/07/2024 Height: 73 in : :[facility] ReadingLocation: Weight: 210 lb : : Gender: Male BSA: 2.2 m2 : :: 1955 Age: 68 yrs BP: 122/73 mmHg: :Reason For Study: AORTIC VALVE STENOSIS : :Ordering Physician: PRITESH, : :STANFORD Performed By: Freddie Nesbitt : :Referring: STANFORD JONAS : + + Interpretation Summary The left ventricle is mildly dilated. The ejection fraction is estimated to be 45-50%. There is apical akinesis. Grade II diastolic dysfunction. The left atrium is severely dilated. The right ventricle is normal in size and function. The right atrium is mildly dilated. There is severe mitral regurgitation. There is a well-seated aortic bioprosthetic valve with a moderate paravalvular leak and a peak velocity of 3.1 m/s. There is moderate to severe tricuspid regurgitation. The right ventricular systolic pressure is estimated to be at least 62 mmHg based on an estimated right atrial pressure of 8 mm Hg. Compared to the prior study dated 04/10/2024, there is been an increase in the tricuspid regurgitation. Procedure: A two-dimensional transthoracic echocardiogram with color flow and Doppler was performed in limited views only. The study quality was technically adequate. Comparison is made with the echocardiogram of 04/10/2024. The patient was in sinus rhythm with heart rates between 68-78 bpm during the exam. Left Ventricle: The left ventricle is mildly dilated. Left ventricular wall thickness is borderline increased. The ejection fraction is estimated to be 45-50%. There is apical akinesis. Diastolic parameters suggest a pseudonormalization pattern, consistent with probable elevated filling pressures. Right Ventricle: The right ventricle is normal in size and function. Atria: The left atrium is severely dilated. The right atrium is mildly dilated. Mitral Valve: The mitral valve is normal. There is no mitral valve stenosis. There is severe mitral regurgitation. Aortic Valve: 26mm Cortez Bhavesh 3 Ultra TAVR. The peak aortic velocity is 3.1 m/sec. The aortic valve mean gradient is 22.8 mmHg. There is a moderate paravalvular leak. Tricuspid Valve: The tricuspid valve is normal. There is no tricuspid stenosis. There is moderate to severe tricuspid regurgitation. The right ventricular systolic pressure is estimated to be at least 62 mmHg based on an estimated right atrial pressure of 8 mm Hg. Pulmonic Valve: The pulmonic valve is not well visualized. There is no pulmonic valvular stenosis. There is no pulmonic valvular regurgitation. Great Vessels: The aortic root is normal size. The IVC is dilated (diameter is greater than 2.1 cm) yet it collapses greater than 50% with a sniff. This suggests a right atrial pressure of 8 mm Hg. Pericardium/ Pleura There is no pericardial effusion. There is no pleural effusion. MMode/2D Measurements & Calculations LVIDd: 6.3 cm LVOT diam: 2.0 cm LVIDs: 4.6 cm Ao root diam: 3.6 cm FS: 26.5 % IVSd: 1.1 cm LVPWd: 1.0 cm LV zavala. diameter/BSA (cm/m^2): 2.9 LV sys. diameter/BSA (cm/m^2): 2.1 IVC diam: 2.3 cm Doppler Measurements & Calculations Ao V2 max: 309.6 cm/sec LVOT Max Francisco: 123.6 cm/sec Ao V2 mean: 227.1 cm/sec LV V1 max P.1 mmHg Ao max P.3 mmHg LV V1 VTI: 25.8 cm Ao mean P.8 mmHg JARET(I,D): 1.3 cm2 Ao V2 VTI: 64.8 cm JARET(V,D): 1.3 cm2 sev ratio: 0.40 JARET indexed to BSA (cm^2/m^2): 0.58 AI P1/2t: 305.0 msec AI dec slope: 512.7 cm/sec2 MV E max francisco: 149.0 cm/sec TR max francisco: 362.9 cm/sec MV A max francisco: 76.4 cm/sec TR max P.7 mmHg MV E/A: 2.0 PA V2 max: 129.6 cm/sec Med Peak E' Francisco: 6.3 cm/sec PA V2 mean: 85.4 cm/sec E/E' med: 23.7 PA mean P.3 mmHg Lat Peak E' Francisco: 8.8 cm/sec E/E' lat: 17.0 E/e' average: 20.4 MV dec time: 0.18 sec MR ERO: 0.28 cm2 MR PISA: 6.0 cm2 SV(LVOT): 82.7 ml MR flow rate: 199.1 cm3/sec MR PISA radius: 0.98 cm Reading Physician:11:13 AM
[2024-05-07 14:36] LABS: Hematocrit 28.2 % (41-53); Hemoglobin 9.4 g/dL (13.5-17.5); Mean Corpuscular HGB Conc 33.3 % (30-36); Mean Corpuscular Hemoglobin 34.7 PG (26-34); Platelet Count 224 X10^3/uL (150-400); Red Blood Cell Count 2.71 X10^6/uL (4.5-5.9); Red Cell Distribution Width 16.1 % (11.6-14.8); White Blood Cell Count 7.6 X10^3/uL (4.5-11.0)
[2024-05-07 15:05] LABS: BUN Creatinine Ratio 22.2 (6-22); Blood Urea Nitrogen 22 mg/dL (9-20); Carbon Dioxide 27 mmol/L (22-32); Chloride 102 mmol/L (98-107); Estimated Glomerular Filt Rate > 60 mL/min (>60); Glucose 111 mg/dL (80-110); HEMOLYSIS < 15 (0-50); Sodium 134 mmol/L (137-145)
== END ==
PROVIDERS: PCP Family Medicine; Referring Provider Internal Medicine; Visit Provider Internal Medicine
DX: I08.3 Combined rheumatic disorders of mitral, aortic and tricuspid valves (principal)
CPT/HCPCS: 36415; 80048; 85027; 93307

== ENCOUNTER → 2024-05-14 12:52 | Outpatient (CLI) | payer MEDICARE, OTHER, SELFPAY ==
[2024-05-14 13:52] LABS: Reticulocyte Count, Percent 4.9 % (0.9-2.6)
[2024-05-14 14:00] LABS: Iron 63 ug/dL (49-181)
[2024-05-14 14:30] LABS: Ferritin 263 ng/mL (18-464)
[2024-05-14 20:03] LABS: Total Iron Binding Capacity 266 ug/dL (261-462)
== END ==
LOC: LAB 12:53
PROVIDERS: PCP Family Medicine; Referring Provider Internal Medicine Cardiovascular Disease; Visit Provider Internal Medicine Cardiovascular Disease
DX: I50.41 Acute combined systolic (congestive) and diastolic (congestive) heart failure (principal); I10 Essential (primary) hypertension
CPT/HCPCS: 36415; 82728; 83540; 83550; 85045

== ENCOUNTER → 2024-05-18 10:58 | Outpatient (CLI) | payer MEDICARE, OTHER, SELFPAY ==
[2024-05-18 13:39] LABS: Occult Blood 1 Negative (Negative); Occult Blood 2 Negative (Negative); Occult Blood 3 Negative (Negative)
== END ==
LOC: LAB 10:59
PROVIDERS: PCP Family Medicine; Referring Provider Internal Medicine Cardiovascular Disease; Visit Provider Internal Medicine Cardiovascular Disease
DX: I11.0 Hypertensive heart disease with heart failure (principal); I50.41 Acute combined systolic (congestive) and diastolic (congestive) heart failure
CPT/HCPCS: 82270

== ENCOUNTER → 2024-06-15 10:45 | Outpatient (CLI) | payer MEDICARE, OTHER, SELFPAY ==
[2024-06-15 11:36] LABS: Hematocrit 33.9 % (41-53); Hemoglobin 11.3 g/dL (13.5-17.5); Mean Corpuscular HGB Conc 33.3 % (30-36); Mean Corpuscular Hemoglobin 34.3 PG (26-34); Platelet Count 179 X10^3/uL (150-400); Red Blood Cell Count 3.29 X10^6/uL (4.5-5.9); Red Cell Distribution Width 15.5 % (11.6-14.8); White Blood Cell Count 6.6 X10^3/uL (4.5-11.0)
[2024-06-15 12:21] LABS: Alanine Aminotransferase 30 IU/L (<50); Albumin Globulin Ratio 1.8 (1.0-2.8); Alkaline Phosphatase 61 U/L (38-126); Aspartate Aminotransferase 42 IU/L (17-59); BUN Creatinine Ratio 15.8 (6-22); Bilirubin Total 0.9 mg/dL (0.2-1.3); Blood Urea Nitrogen 19 mg/dL (9-20); C-Reactive Protein Quant 0.8 mg/dL (<1.0); Carbon Dioxide 30 mmol/L (22-32); Chloride 104 mmol/L (98-107); Estimated Glomerular Filt Rate > 60 mL/min (>60); Globulin 2.2 g/dL (1.7-4.1); Glucose 92 mg/dL (80-110); HEMOLYSIS < 15 (0-50); Potassium 4.4 mmol/L (3.4-5.1); Sodium 138 mmol/L (137-145); Total Protein 6.2 g/dL (6.3-8.2)
[2024-06-15 14:50] LABS: Erythrocyte Sedimentation Rate 20 MM/HR (0-15)
== END ==
PROVIDERS: PCP Family Medicine; Referring Provider Specialist/Technologist Athletic Trainer; Visit Provider Specialist/Technologist Athletic Trainer
DX: L40.50 Arthropathic psoriasis, unspecified (principal)
CPT/HCPCS: 36415; 80053; 85027; 85651; 86140

== ENCOUNTER → 2024-07-24 12:36 | Outpatient (CLI) | payer MEDICARE, OTHER, SELFPAY ==
--- NOTE | 2024-07-24 12:38 | DI.RAD.S_ITS ---
PROCEDURE: XR CHEST 2V INDICATIONS: Cough TECHNIQUE: 2 views of the chest were acquired. COMPARISON: [facility], CR, XR CHEST 1V, 04/21/2024, 2:03. FINDINGS: Surgical changes and devices: None. Lungs and pleura: Expiratory chest demonstrating bronchovascular crowding and interstitial prominence. No focal opacity, pleural effusion or pneumothorax. Mediastinum: Mediastinal contours are normal. Heart size is normal. Bones and chest wall: No suspicious bony abnormalities. Soft tissues appear unremarkable. IMPRESSION: Expiratory chest demonstrating no acute cardiopulmonary disease. Dictated by: Dick Witt [facility] Interpreted: Sofya Mcclure MD on 07/24/2024 at 12:53 Approved by: Sofya Mcclure MD, PhD on 07/29/2024 at 11:19
== END ==
LOC: RAD 12:38
PROVIDERS: PCP Family Medicine; Referring Provider Nurse Practitioner Family; Visit Provider Nurse Practitioner Family
DX: R05.9 Cough, unspecified (principal)
CPT/HCPCS: 71046

== ENCOUNTER 2024-09-12 00:41 | Emergency (ER) | payer MEDICARE, OTHER, SELFPAY ==
[2024-09-12] VITALS (8 sets, daily range): BP systolic 142–160; BP diastolic 67–73; PULSE 62–74; RESP 14–20; TEMP 36.4; O2SAT 95–99; BMI 29.7
--- NOTE | 2024-09-12 00:57 | DI.RAD.S_ITS ---
PROCEDURE: XR CHEST 1V INDICATIONS: Shortness of breath TECHNIQUE: One view of the chest was acquired. COMPARISON: [facility], , XR CHEST 2V, 07/24/2024, 12:38. FINDINGS: Surgical changes and devices: None. Lungs and pleura: Lungs are clear. No pleural effusions or pneumothorax. Mediastinum: Mediastinal contours appear normal. Heart size is normal. Bones and chest wall: No suspicious bony lesions. Overlying soft tissues appear unremarkable. IMPRESSION: No acute cardiopulmonary abnormality is seen. Approved by: Michelle Phillips M.D.,Ph.D. on 09/12/2024 at 1:57
--- NOTE | 2024-09-12 00:57 | EKG_ITS ---
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
[2024-09-12 01:24] LABS: Add Manual Diff / Slide Review NO; Basophils Absolute Auto 100 /uL (0-100); Eosinophils Absolute Auto 200 /uL (0-450); Eosinophils Percent Auto 2.5 % (2-4); Hematocrit 34.7 % (41-53); Hemoglobin 11.6 g/dL (13.5-17.5); Lymphocytes Absolute Auto 1300 /uL (1100-4500); Lymphocytes Percent Auto 16.2 % (25-40); Mean Corpuscular HGB Conc 33.4 % (30-36); Mean Corpuscular Hemoglobin 34.5 PG (26-34); Mean Corpuscular Volume 103.5 fL (80-100); Monocytes Absolute Auto 600 /uL (0-900); Monocytes Percent Auto 7.8 % (3-14); Neutrophils Absolute Auto 5700 /uL (1500-7000); Neutrophils Percent Auto 72.5 % (50-75); Platelet Count 158 X10^3/uL (150-400); Red Blood Cell Count 3.35 X10^6/uL (4.5-5.9); Red Cell Distribution Width 18.7 % (11.6-14.8); White Blood Cell Count 7.9 X10^3/uL (4.5-11.0)
[2024-09-12 01:30] LABS: INR 0.9 (0.9-1.3); Prothrombin Time 10.5 SECONDS (9.4-12.5)
[2024-09-12 01:33] LABS: Lactate (Lactic Acid) 0.9 mmol/L (0.7-2.1)
[2024-09-12 01:34] LABS: Alanine Aminotransferase 22 IU/L (<50); Albumin 4.1 g/dL (3.5-5.0); Albumin Globulin Ratio 1.5 (1.0-2.8); Alkaline Phosphatase 59 U/L (38-126); Aspartate Aminotransferase 45 IU/L (17-59); BUN Creatinine Ratio 16.5 (6-22); Bilirubin Total 0.9 mg/dL (0.2-1.3); Blood Urea Nitrogen 16 mg/dL (9-20); Calcium 10.1 mg/dL (8.4-10.2); Carbon Dioxide 28 mmol/L (22-32); Chloride 103 mmol/L (98-107); Estimated Glomerular Filt Rate > 60 mL/min (>60); Globulin 2.8 g/dL (1.7-4.1); Glucose 98 mg/dL (80-110); HEMOLYSIS < 15 (0-50); Potassium 3.6 mmol/L (3.4-5.1); Sodium 135 mmol/L (137-145); Total Protein 6.9 g/dL (6.3-8.2)
[2024-09-12 01:46] LABS: NT-proBNP (BNP-Adult 18+) 1030 pg/mL (<125); Troponin I 0.041 ng/mL (0.01-0.034)
[2024-09-12 01:57] LABS: Influenza A - CEPHEID Flu A NEGATIVE (NEGATIVE); Influenza B - CEPHEID Flu B NEGATIVE (NEGATIVE); Respiratory Syncytial Virus Negative (Negative)
[2024-09-12 01:59] LABS: COVID-19 CEPHEID 4-PLEX PCR Negative (Negative)
--- NOTE | 2024-09-12 03:57 | EKG_ITS ---
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
[2024-09-12 04:33] LABS: Troponin I 0.041 ng/mL (0.01-0.034)
--- NOTE | 2024-09-12 06:49 | ED_ITS ---
HPI - General Adult General Chief complaint: Shortness of Breath/Dyspnea Stated complaint: sob Time Seen by Provider: 09/12/24 05:59 Source: patient Mode of arrival: Ambulatory History of Present Illness HPI narrative: Patient is a 69-year-old male. History of aortic valve replacement. Also states he has been told that his mitral valve needs replaced. Has a history of coronary artery disease. No underlying lung pathology such as asthma/COPD/CHF. He was on Lasix. A couple weeks ago his Lasix was increased from 20 mg a day to 40 mg a day. He was here for a cough. He states he was had the cough for the past several months. Initially started when he had what sounds like an upper respiratory infection. It is productive with clear sputum. He denies fevers. He was having chest pain because of the cough. No vomiting. No recent travel. The swelling in his legs that he had when his primary doctor increased his Lasix from 20-40 has improved. Reports no abdominal pain. He was on lisinopril. Has been on lisinopril for years. He was seen in the walk-in clinic several weeks ago for a cough. Was given an albuterol inhaler with a spacer. He states he does not think that that helped all that much. No recent travel. He was not on anticoagulation. Takes an aspirin. States last evening was lying in bed and became short of breath which is what brought him to the emergency department. Related Data Home Medications Medication Instructions Recorded Confirmed amlodipine 5 mg tablet 5 mg PO DAILY for high BP 12/21/20 07/24/24 aspirin 81 mg tablet 81 mg PO DAILY for CV prophylaxis 12/21/20 07/24/24 atorvastatin 80 mg tablet 40 mg PO DAILY 12/21/20 07/24/24 lisinopril 40 mg tablet 40 mg PO DAILY 12/21/20 07/24/24 nitroglycerin 0.4 mg sublingual 0.4 mg sublingual ONCE PRN chest 12/21/20 07/24/24 tablet pain pantoprazole 20 mg tablet,delayed 20 mg PO DAILY on empty stomach 12/21/20 07/24/24 release DreamStation Auto CPAP 05/17/21 07/24/24 calcipotriene 0.005 1 applic topical BID 03/21/22 07/24/24 %-betamethasone 0.064 % topical cream cholecalciferol (vitamin D3) 50 50 mcg PO DAILY 03/21/22 07/24/24 mcg (2,000 unit) capsule (Vitamin D3) clobetasol 0.05 % topical cream 1 applic topical BID 03/21/22 07/24/24 folic acid 1 mg tablet 2 mg PO DAILY 03/21/22 07/24/24 methotrexate sodium 2.5 mg tablet 20 mg PO QWEEK 03/21/22 07/24/24 Previous Rx's Medication Instructions Recorded furosemide 20 mg tablet (Lasix) 20 mg PO DAILY #4 tabs 04/10/24 empagliflozin 10 mg tablet 10 mg PO DAILY #30 tabs 04/21/24 (Jardiance) furosemide 20 mg tablet (Lasix) 20 mg PO DAILY #60 tabs 04/21/24 albuterol sulfate 90 mcg/actuation 2 puff inhalation Q6H PRN 07/24/24 aerosol inhaler shortness of breath or wheezing #6.7 grams benzonatate 200 mg capsule 200 mg PO BID PRN cough #28 caps 07/24/24 inhalational spacing device #1 ea 07/24/24 (Aerochamber MV spacer) albuterol sulfate 90 mcg/actuation 2 puff inhalation Q4-6H PRN 09/12/24 aerosol inhaler shortness of breath or wheezing #8.5 grams azithromycin 250 mg tablet See Rx Instructions PO .COMPLEX #6 09/12/24 tabs Allergies Allergy/AdvReac Type Severity Reaction Status Date / Time No Known Drug Allergies Allergy Verified 07/24/24 12:23 Review of Systems Review of Systems ROS Unobtainable: All systems reviewed & are unremarkable except as noted in HPI and below Patient History 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) Allergic rhinosinusitis GERD (gastroesophageal reflux disease) Ischemic heart disease Snoring Primary insomnia Obstructive sleep apnea of adult Hypertension Hyperlipidemia Surgical History History of heart artery stent Family History Brother Hx of CABG Social History marital status: details: alfonso Jay, lives in [place] household members: spouse lives independently: Yes caregiver/support person: No housing: house coral/moravian: Cheondoism Smoking Status: Never smoker alcohol intake: current substance use type: does not use Smoking Status: Never smoker alcohol intake frequency: 3 or more drinks per day Exam Initial Vital Signs Initial Vital Signs: Vital Signs Temperature 97.6 F 09/12/24 00:52 Pulse Rate 74 09/12/24 00:52 Respiratory Rate 19 09/12/24 00:52 Blood Pressure 144/67 H 09/12/24 00:52 Pulse Oximetry 95 09/12/24 00:52 Oxygen Delivery Method Room Air 09/12/24 00:52 Const General: cooperative, comfortable and No ill appearing HENMT Head: normal to inspection and normocephalic Resp Effort & Inspection: normal respiratory effort, cough, not labored, no retractions and not tachypneic Auscultation: no rhonchi and no wheezes Cardio Rate: regular rate Rhythm: regular rhythm GI Inspection: normal to inspection Skin General: no rashes or lesions noted Neuro General: patient alert, patient awake and moves all extremities Extrem General: capillary refill normal Course Orders Ordered: ED Orders 09/12/24 00:57 XR chest 1V Stat EKG-12 Lead Stat Measure peak expiratory flow ONCE RT Consult Eval and Treat NOW 09/12/24 01:15 Complete Blood Count AUTO DIFF Stat Comprehensive Metabolic Panel Stat Covid-19 + FLU A/B + RSV - PCR Stat Lactate (Lactic Acid) Stat NT-proBNP (BNP-Adult 18+) Stat Prothrombin Time INR Stat Troponin I Stat 09/12/24 03:57 EKG-12 Lead Stat 09/12/24 04:00 Troponin I Stat Discontinued Medications Albuterol (Albuterol 2.5 Mg/3 Ml Neb (Adult)) 2.5 mg INH NOW ONE Stop: 09/12/24 07:03 Last Admin: 09/12/24 07:37 Dose: 2.5 mg Documented By: ABELARDO Vital Signs Vital signs: Vital Signs - 8 hr 09/12/24 00:52 09/12/24 06:25 09/12/24 06:26 Temperature 97.6 F Pulse Rate 74 71 71 Respiratory Rate 19 Blood Pressure 144/67 H Pulse Oximetry 95 96 96 Oxygen Delivery Method Room Air 09/12/24 06:26 09/12/24 06:30 09/12/24 06:30 Temperature Pulse Rate 64 Respiratory Rate 18 Blood Pressure 160/72 H 142/72 H Pulse Oximetry 98 Oxygen Delivery Method 09/12/24 07:00 09/12/24 07:00 09/12/24 07:30 Temperature Pulse Rate 69 67 Respiratory Rate Blood Pressure 149/73 H Pulse Oximetry 97 96 Oxygen Delivery Method 09/12/24 07:30 09/12/24 08:00 09/12/24 08:00 Temperature Pulse Rate 62 Respiratory Rate 14 Blood Pressure 148/72 H 146/67 H Pulse Oximetry 99 Oxygen Delivery Method Medical Decision Making Medical Records Medical records reviewed: Yes I reviewed the patient's medical records. Lab Data Lab results reviewed: Yes I reviewed the patient's lab results. 09/12/24 01:15 09/12/24 01:15 Labs: Lab Results 09/12/24 09/12/24 Range/Units 01:15 04:00 WBC 7.9 (4.5-11.0) X10^3/uL RBC 3.35 L (4.5-5.9) X10^6/uL Hgb 11.6 L (13.5-17.5) g/dL Hct 34.7 L (41-53) % MCV 103.5 H (80-100) fL MCH 34.5 H (26-34) PG MCHC 33.4 (30-36) % RDW 18.7 H (11.6-14.8) % Plt Count 158 (150-400) X10^3/uL Neut % (Auto) 72.5 (50-75) % Lymph % (Auto) 16.2 L (25-40) % [place] % (Auto) 7.8 (3-14) % Eos % (Auto) 2.5 (2-4) % Baso % (Auto) 1.0 (0-2) % Neut # (Auto) 5700 (5240-1910) /uL Lymph # (Auto) 1300 (8606-6234) /uL [place] # (Auto) 600 (0-900) /uL Eos # (Auto) 200 (0-450) /uL Baso # (Auto) 100 (0-100) /uL PT 10.5 (9.4-12.5) SECONDS INR 0.9 (0.9-1.3) Sodium 135 L (137-145) mmol/L Potassium 3.6 (3.4-5.1) mmol/L Chloride 103 (98-107) mmol/L Carbon Dioxide 28 (22-32) mmol/L BUN 16 (9-20) mg/dL Creatinine 0.97 (0.66-1.25) mg/dL Estimated GFR > 60 (>60) mL/min BUN/Creatinine Ratio 16.5 (6-22) Glucose 98 (80-110) mg/dL Lactate 0.9 (0.7-2.1) mmol/L Calcium 10.1 (8.4-10.2) mg/dL Total Bilirubin 0.9 (0.2-1.3) mg/dL AST 45 (17-59) IU/L ALT 22 (<50) IU/L Alkaline Phosphatase 59 (38-126) U/L Troponin I 0.041 H 0.041 H (0.01-0.034) ng/mL NT-Pro-B Natriuret Pep 1030 H (<125) pg/mL Total Protein 6.9 (6.3-8.2) g/dL Albumin 4.1 (3.5-5.0) g/dL Globulin 2.8 (1.7-4.1) g/dL Albumin/Globulin Ratio 1.5 (1.0-2.8) SARS-CoV-2 (PCR) Negative (Negative) Influenza A (RT-PCR) Flu a negative (NEGATIVE) Influenza B (RT-PCR) Flu b negative (NEGATIVE) RSV (PCR) Negative (Negative) Imaging Data Chest x-ray: Radiologist's Impression: PROCEDURE: XR CHEST 1V INDICATIONS: Shortness of breath TECHNIQUE: One view of the chest was acquired. COMPARISON: [facility], , XR CHEST 2V, 07/24/2024, 12:38. FINDINGS: Surgical changes and devices: None. Lungs and pleura: Lungs are clear. No pleural effusions or pneumothorax. Mediastinum: Mediastinal contours appear normal. Heart size is normal. Bones and chest wall: No suspicious bony lesions. Overlying soft tissues appear unremarkable. IMPRESSION: No acute cardiopulmonary abnormality is seen. ECG Data Attestation: I personally reviewed and interpreted this ECG as follows: Interpretation: Sinus rhythm with frequent PACs Ventricular rate 94 QRS 160 milliseconds Left bundle-branch block Repeat EKG Sinus rhythm with premature PACs Ventricular rate is 71 Left bundle-branch block MDM Narrative Medical decision making narrative: Patient was having a cough. His chest x-ray is unremarkable. Has a slightly elevated BNP but this maybe baseline for him. I do not feel like he was excessively fluid overloaded and he has had a recent increase in his furosemide. He did feel somewhat better after the breathing treatment. He was already been on amoxicillin without much improvement however there was also concern about other atypical pneumonia such as pertussis. He was afebrile. Low suspicion for ACS. Low suspicion for acute CHF. He was also taken Tessalon without much improvement. Plan will be to put him on azithromycin to treat atypical pneumonia. He was also on lisinopril and we discussed that this potentially can be causing some of his cough and he will need to talk with his primary doctor if his symptoms do not improve after this round of antibiotics. Patient expressed understanding and agreement with the plan. Discharge Plan Departure Patient Disposition: Home Clinical Impression: Atypical pneumonia Instructions: DI for Atypical Pneumonia Activity Restrictions/Additional Instructions: Continue to take all of your medications as directed. If your symptoms still persist after this round of antibiotics and the albuterol inhaler you do need to talk with your primary doctor about potentially switching your lisinopril. Return to the emergency department for new or worsening symptoms. Prescriptions: New azithromycin 250 mg tablet See Rx Instructions .ROUTE .COMPLEX Qty: 6 0RF Rx Instructions: For 250 mg dose pack: take 500 mg today (day 1), then 250 mg for 4 days (days 2-5) albuterol sulfate 90 mcg/actuation HFA aerosol inhaler 2 puff inhalation Q4-6H PRN (Reason: shortness of breath or wheezing) Qty: 8.5 0RF No Action benzonatate 200 mg capsule 200 mg PO BID PRN (Reason: cough) Qty: 28 0RF (DME) Aerochamber MV Spacer See Rx Instructions .ROUTE .MEDSUPPLY Qty: 1 0RF Rx Instructions: As directed albuterol sulfate 90 mcg/actuation HFA aerosol inhaler 2 puff inhalation Q6H PRN (Reason: shortness of breath or wheezing) Qty: 6.7 0RF clobetasol 0.05 % Cream 1 applic TOPICAL BID methotrexate sodium 2.5 mg Tablet 20 mg PO QWEEK folic acid 1 mg Tablet 2 mg PO DAILY cholecalciferol (vitamin D3) [Vitamin D3] 50 mcg (2,000 unit) Capsule 50 mcg PO DAILY calcipotriene-betamethasone 0.005-0.064 % Cream 1 applic TOPICAL BID furosemide [Lasix] 20 mg tablet 20 mg PO DAILY Qty: 4 0RF furosemide [Lasix] 20 mg tablet 20 mg PO DAILY Qty: 60 0RF Jardiance 10 mg tablet 10 mg PO DAILY Qty: 30 0RF (DME) DreamStation Auto CPAP See Rx Instructions .Route .MEDSUPPLY Rx Instructions: Min Pressure: 6 Max Pressure: 14 lisinopril 40 mg tablet 40 mg PO DAILY amlodipine 5 mg tablet 5 mg PO DAILY aspirin 81 mg tablet 81 mg PO DAILY atorvastatin 80 mg tablet 40 mg PO DAILY pantoprazole 20 mg tablet,delayed release (DR/EC) 20 mg PO DAILY nitroglycerin 0.4 mg tablet, sublingual 0.4 mg sublingual ONCE PRN (Reason: chest pain) Rx Instructions: as a single dose; administer 5-10 minutes before situation known to precipitate angina attack Referrals: Didier Mohamud MD [Primary Care Provider] - Stand Alone Forms: Patient Portal/API/Survey
[2024-09-12] MEDS: ALBUTEROL 2.5 MG/3 ML NEB (ADULT) INH (07:37)
--- NOTE | 2024-09-12 08:30 | RT ---
pt olivia brooks well, on room air and no distress noted
== END 2024-09-12 08:33 | disposition home or self-care (01) ==
PROVIDERS: Emergency Medicine; Emergency Provider Emergency Medicine; PCP Family Medicine
DX: J18.9 Pneumonia, unspecified organism (principal); I25.10 Atherosclerotic heart disease of native coronary artery without angina pectoris; Z95.2 Presence of prosthetic heart valve; I10 Essential (primary) hypertension
CPT/HCPCS: 0241U; 36415; 71045; 80053; 83605; 83880; 84484; 85025; 85610; 93005; 94640; 99284; J7613

== ENCOUNTER → 2024-09-14 11:31 | Outpatient (CLI) | payer MEDICARE, OTHER, SELFPAY ==
[2024-09-14 12:10] LABS: Hematocrit 34.8 % (41-53); Hemoglobin 11.7 g/dL (13.5-17.5); Mean Corpuscular HGB Conc 33.6 % (30-36); Mean Corpuscular Hemoglobin 34.8 PG (26-34); Mean Corpuscular Volume 103.5 fL (80-100); Platelet Count 166 X10^3/uL (150-400); Red Blood Cell Count 3.36 X10^6/uL (4.5-5.9); Red Cell Distribution Width 17.8 % (11.6-14.8); White Blood Cell Count 6.8 X10^3/uL (4.5-11.0)
[2024-09-14 13:07] LABS: Alanine Aminotransferase 22 IU/L (<50); Albumin Globulin Ratio 1.8 (1.0-2.8); Alkaline Phosphatase 49 U/L (38-126); Aspartate Aminotransferase 37 IU/L (17-59); BUN Creatinine Ratio 17.1 (6-22); Bilirubin Total 0.9 mg/dL (0.2-1.3); Blood Urea Nitrogen 20 mg/dL (9-20); C-Reactive Protein Quant 0.7 mg/dL (<1.0); Calcium 8.9 mg/dL (8.4-10.2); Carbon Dioxide 29 mmol/L (22-32); Chloride 104 mmol/L (98-107); Estimated Glomerular Filt Rate > 60 mL/min (>60); Globulin 2.2 g/dL (1.7-4.1); Glucose 89 mg/dL (80-110); HEMOLYSIS < 15 (0-50); Potassium 4.6 mmol/L (3.4-5.1); Sodium 137 mmol/L (137-145); Total Protein 6.2 g/dL (6.3-8.2)
[2024-09-14 13:30] LABS: Erythrocyte Sedimentation Rate 4 MM/HR (0-15)
== END ==
PROVIDERS: PCP Family Medicine; Referring Provider Specialist/Technologist Athletic Trainer; Visit Provider Specialist/Technologist Athletic Trainer
DX: Z51.81 Encounter for therapeutic drug level monitoring (principal); L40.50 Arthropathic psoriasis, unspecified; D84.9 Immunodeficiency, unspecified
CPT/HCPCS: 36415; 80053; 85027; 85651; 86140

== ENCOUNTER → 2024-10-15 08:44 | Outpatient (CLI) | payer MEDICARE, OTHER, SELFPAY | LOC: RESP 08:45 | PROVIDERS: PCP Family Medicine; Referring Provider Internal Medicine Critical Care Medicine; Visit Provider Internal Medicine Critical Care Medicine | DX: R06.02 Shortness of breath (principal); Z87.891 Personal history of nicotine dependence; Z86.16 Personal history of COVID-19; Z77.110 Contact with and (suspected) exposure to air pollution; R94.2 Abnormal results of pulmonary function studies; G47.33 Obstructive sleep apnea (adult) (pediatric) | CPT/HCPCS: 94060; 94726; 94729 ==

== ENCOUNTER → 2024-11-05 11:08 | Outpatient (CLI) | payer MEDICARE, OTHER, SELFPAY | PROVIDERS: PCP Family Medicine; Referring Provider Internal Medicine Critical Care Medicine; Visit Provider Internal Medicine Critical Care Medicine | DX: J44.9 Chronic obstructive pulmonary disease, unspecified (principal) | CPT/HCPCS: 36415; 81332; 82103 ==

== ENCOUNTER 2024-12-23 10:15 | Outpatient (RCR) | payer MEDICARE, OTHER, SELFPAY | END 2024-12-23 12:15 | LOC: PUL 10:15 | PROVIDERS: PCP Family Medicine; Referring Provider Internal Medicine Critical Care Medicine; Visit Provider Internal Medicine Critical Care Medicine | DX: J44.9 Chronic obstructive pulmonary disease, unspecified (principal) | CPT/HCPCS: 94625; 94626 ==

== ENCOUNTER → 2024-12-30 13:24 | Outpatient (CLI) | payer MEDICARE, OTHER, SELFPAY ==
[2024-12-30 14:36] LABS: Add Manual Diff / Slide Review NO; Basophils Absolute Auto 100 /uL (0-100); Basophils Percent Auto 0.7 % (0-2); Eosinophils Absolute Auto 300 /uL (0-450); Eosinophils Percent Auto 3.6 % (2-4); Hematocrit 37.9 % (41-53); Hemoglobin 12.3 g/dL (13.5-17.5); Lymphocytes Absolute Auto 900 /uL (1100-4500); Lymphocytes Percent Auto 11.7 % (25-40); Mean Corpuscular HGB Conc 32.5 % (30-36); Mean Corpuscular Hemoglobin 31.5 PG (26-34); Mean Corpuscular Volume 96.7 fL (80-100); Monocytes Absolute Auto 600 /uL (0-900); Monocytes Percent Auto 7.6 % (3-14); Neutrophils Absolute Auto 5800 /uL (1500-7000); Neutrophils Percent Auto 76.4 % (50-75); Platelet Count 257 X10^3/uL (150-400); Red Blood Cell Count 3.92 X10^6/uL (4.5-5.9); Red Cell Distribution Width 18.1 % (11.6-14.8); White Blood Cell Count 7.6 X10^3/uL (4.5-11.0)
[2024-12-30 15:00] LABS: Alanine Aminotransferase 26 IU/L (<50); Alkaline Phosphatase 73 U/L (38-126); Aspartate Aminotransferase 43 IU/L (17-59); C-Reactive Protein Quant 3.3 mg/dL (<1.0); Estimated Glomerular Filt Rate > 60 mL/min (>60)
[2024-12-30 15:05] LABS: Erythrocyte Sedimentation Rate 25 MM/HR (0-15)
== END ==
PROVIDERS: PCP Family Medicine; Referring Provider Specialist/Technologist Athletic Trainer; Visit Provider Specialist/Technologist Athletic Trainer
DX: L40.50 Arthropathic psoriasis, unspecified (principal); Z51.81 Encounter for therapeutic drug level monitoring; D84.9 Immunodeficiency, unspecified
CPT/HCPCS: 36415; 82565; 84075; 84450; 84460; 85025; 85651; 86140

== ENCOUNTER 2025-03-17 10:15 | Outpatient (RCR) | payer MEDICARE, OTHER, SELFPAY | END 2025-03-17 12:15 | LOC: CAR 10:15 | PROVIDERS: PCP Family Medicine; Referring Provider Internal Medicine Cardiovascular Disease; Visit Provider Internal Medicine Cardiovascular Disease | DX: Z95.2 Presence of prosthetic heart valve (principal) | CPT/HCPCS: 93798 ==

== ENCOUNTER 2025-03-18 04:49 | Emergency (ER) | payer MEDICARE, OTHER, SELFPAY ==
[2025-03-18] VITALS (20 sets, daily range): BP systolic 147–194; BP diastolic 70–99; PULSE 79–106; RESP 14–27; TEMP 36.6–36.9; O2SAT 86–97; BMI 29.0
--- NOTE | 2025-03-18 04:50 | ED.GENADULT ---
HPI - General Adult General Chief complaint: Shortness of Breath/Dyspnea Stated complaint: SOB Time Seen by Provider: 03/18/25 04:50 History of Present Illness HPI narrative: 69-year-old gentleman with a history of COPD, saturations are typically in the 94% range, uses inhalers at home, hypertension hyperlipidemia, TAVR with mitral valve disease as well currently going to Cardiopulmonary Rehab doing quite well awoke this morning at 3:00 a.m. with severe dyspnea tachypnea no chest pain does note some wheezing. No lower extremity edema. Was in his usual state of actually improving health when he went to bed this evening. No recent fevers, cough, chills. No palpitations Related Data Home Medications ?Medication ?Instructions ?Recorded ?Confirmed amlodipine 5 mg tablet 5 mg PO DAILY for high BP 12/21/20 02/04/25 aspirin 81 mg tablet 81 mg PO DAILY for CV prophylaxis 12/21/20 02/04/25 atorvastatin 80 mg tablet 40 mg PO DAILY 12/21/20 02/04/25 nitroglycerin 0.4 mg sublingual 0.4 mg sublingual ONCE PRN chest 12/21/20 02/04/25 tablet pain pantoprazole 20 mg tablet,delayed 20 mg PO DAILY on empty stomach 12/21/20 02/04/25 release DreamStation Auto CPAP 05/17/21 02/04/25 calcipotriene 0.005 1 applic topical BID 03/21/22 02/04/25 %-betamethasone 0.064 % topical cream cholecalciferol (vitamin D3) 50 50 mcg PO DAILY 03/21/22 02/04/25 mcg (2,000 unit) capsule (Vitamin D3) clobetasol 0.05 % topical cream 1 applic topical BID 03/21/22 02/04/25 folic acid 1 mg tablet 2 mg PO DAILY 03/21/22 02/04/25 methotrexate sodium 2.5 mg tablet 20 mg PO QWEEK 03/21/22 02/04/25 metoprolol tartrate 50 mg tablet 50 mg PO DAILY 02/04/25 02/04/25 potassium chloride 20 mEq 20 meq PO DAILY 02/04/25 02/04/25 tablet,extended release telmisartan 40 mg tablet 40 mg PO DAILY 02/04/25 02/04/25 Previous Rx's ?Medication ?Instructions ?Recorded empagliflozin 10 mg tablet 10 mg PO DAILY #30 tabs 04/21/24 (Jardiance) furosemide 20 mg tablet (Lasix) 20 mg PO DAILY #60 tabs 04/21/24 inhalational spacing device #1 ea 07/24/24 (Aerochamber MV spacer) azithromycin 250 mg tablet See Rx Instructions PO .COMPLEX #6 09/12/24 tabs albuterol sulfate 90 mcg/actuation 2 puff inhalation Q4-6H PRN 11/05/24 aerosol inhaler shortness of breath or wheezing #8.5 grams tiotropium 2.5 mcg-olodaterol 2.5 2 puff inhalation DAILY #4 grams 12/03/24 mcg/actuation mist for inhalation (Stiolto Respimat) Allergies Allergy/AdvReac Type Severity Reaction Status Date / Time lisinopril Allergy Verified 03/18/25 04:57 Review of Systems Review of Systems Narrative: Pertinent positive and negative findings as per HPI Patient History 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) Allergic rhinosinusitis GERD (gastroesophageal reflux disease) Ischemic heart disease Snoring Primary insomnia Obstructive sleep apnea of adult Hypertension Hyperlipidemia Surgical History History of heart artery stent Family History Brother Hx of CABG Social History marital status: details: alfonso Jay, lives in [place] household members: spouse lives independently: Yes caregiver/support person: No housing: house coral/confucianism: Faith alcohol intake: current substance use type: does not use alcohol intake frequency: 3 or more drinks per day Exam Initial Vital Signs Initial Vital Signs: General: Pale, tachypneic, appears uncomfortable, 5-6 word sentences HEENT: Moist mucous membranes, normal sclera with reactive pupils, Neck: No JVD, supple Respiratory: Lungs with expiratory wheeze more noticeable in upper lung flores, no rhonchi Cardiac: Regular rate and rhythm , overriding wheeze makes evaluation for murmur challenging Abdomen: Soft, obese, nontender, no rebound or guarding, no flank pain Skin: Slightly pale but otherwise Warm and dry, no rashes Neurologic: Grossly neurologically intact with no obvious asymmetries or abnormalities Extremities: No trauma, no lower extremity edema Psych: Cooperative, appropriate insight and affect Medical Decision Making Imaging Data CT scan - chest: Radiologist's Impression: No pulmonary embolism, aortic dissection or aneurysm. Bilateral lower lobe pulmonary infiltrates, thickening of the interlobular Septra and bilateral pleural effusions compatible with congestive heart failure MDM Narrative Medical decision making narrative: CC: Acute dyspnea onset 3:00 a.m. Complicating co-morbidities: Coronary artery disease, post TAVR for aortic stenosis, known mitral disease, COPD Data collected from: patient Medical records reviewed: Notes with evaluation for COPD, acute heart failure, mitral regurg are reviewed Differential considered: Flash pulmonary edema, acute coronary syndrome, pneumonia, COPD exacerbation Exam documented above, pertinent findings include: Patient is tachypneic, slightly hypoxic with saturations in the 90-91% range, expiratory wheeze in upper lung flores, no lower extremity edema Lab Test results independently reviewed as above. Pertinent findings: Chemistries show normal renal function, minimally elevated calcium of 10.9. Troponin is slightly elevated at 0.038 which is lower than his typical baseline ProBNP is elevated at 1300 CBC does not suggest infection, chronic stable anemia with hemoglobin at 12.1 Independently reviewed EKG: Sinus tachycardia at a rate of 103 with left bundle branch block, no acute ischemic changes. No significant changes in comparison to most recent EKG Imaging studies independently reviewed: Chest x-ray suggests pleural effusion, mild pulmonary congestion D-dimer significantly elevated and CT scan of the chest shows no evidence of pulmonary embolism but does confirm congestive heart failure with small bibasilar pleural effusions Treatments: DuoNeb, aspirin, Solu-Medrol 125 mg, his usual amlodipine 5 mg dose. Nitroglycerin was given and it did not influence his acute dyspnea. 60 mg of IV Lasix given. Discussion: 69-year-old gentleman with a history of congestive heart failure, COPD, aortic valve replacement, mitral valve issues comes in with acute onset severe dyspnea wheeze, tachypnea at 3:00 a.m.. D-dimer was elevated and CT scan does not show pulmonary embolism. No evidence of acute coronary syndrome, however CT scan and blood work to suggest volume overload as the source of his acute dyspnea. In the emergency department he is given 60 mg of IV furosemide. He notes that he currently is taking 40 mg daily. We will ask him to increase to 40 mg in the morning and noon for the next 5 days and then returned to his usual 40 mg. We will encourage him to continue with his cardiopulmonary rehab. I will also also asked him to follow up with his primary care physician to make sure that his breathing is improved, his pulmonary congestion is improving and make sure that going back to just 40 mg of furosemide daily is going to be safe and appropriate. There was no indication for hospitalization today and he is safe for discharge Discharge Plan Departure Patient Disposition: Home Clinical Impression: Acute CHF (congestive heart failure) Qualifiers: Heart failure type: unspecified Qualified Code(s): I50.9 - Heart failure, unspecified Instructions: DI for Heart Failure Activity Restrictions/Additional Instructions: Thank you for coming in today There is no evidence of acute heart attack, blood clot in your lungs, collapsed lung, pneumonia or other infection. You were given additional nebulizers as well as steroids however I believe the primary cause of your shortness for breath is worsening of your chronic congestive heart failure. Some of your blood tests suggest symptoms of heart failure, this is consistent with findings on the chest x-ray as well as the CT scan. In the emergency department you were given 60 mg of IV furosemide. For the next 5 days, through September 23, I want you to increase your home furosemide from 2 pills in the morning, 40 mg to 40 mg in the morning and at noon. I would encourage you to schedule an appointment with your primary care doctor by the end of next week to make sure that you do not need to continue this higher dose furosemide. I would also encourage you to continue with your Cardiopulmonary Rehab program. If you find that you are getting worse or develop any new symptoms, please feel free to return to the emergency department for further evaluation. Prescriptions: No Action (DME) Aerochamber MV Spacer See Rx Instructions .ROUTE .MEDSUPPLY Qty: 1 0RF Rx Instructions: As directed Stiolto Respimat 2.5-2.5 mcg/actuation mist 2 puff inhalation DAILY Qty: 4 3RF clobetasol 0.05 % Cream 1 applic TOPICAL BID methotrexate sodium 2.5 mg Tablet 20 mg PO QWEEK folic acid 1 mg Tablet 2 mg PO DAILY cholecalciferol (vitamin D3) [Vitamin D3] 50 mcg (2,000 unit) Capsule 50 mcg PO DAILY calcipotriene-betamethasone 0.005-0.064 % Cream 1 applic TOPICAL BID azithromycin 250 mg tablet See Rx Instructions .ROUTE .COMPLEX Qty: 6 0RF Rx Instructions: For 250 mg dose pack: take 500 mg today (day 1), then 250 mg for 4 days (days 2-5) furosemide [Lasix] 20 mg tablet 20 mg PO DAILY Qty: 60 0RF Jardiance 10 mg tablet 10 mg PO DAILY Qty: 30 0RF telmisartan 40 mg tablet 40 mg PO DAILY metoprolol tartrate 50 mg tablet 50 mg PO DAILY potassium chloride 20 mEq tablet extended release 20 meq PO DAILY albuterol sulfate 90 mcg/actuation HFA aerosol inhaler 2 puff inhalation Q4-6H PRN (Reason: shortness of breath or wheezing) Qty: 8.5 6RF (DME) DreamStation Auto CPAP See Rx Instructions .Route .MEDSUPPLY Rx Instructions: Min Pressure: 6 Max Pressure: 14 amlodipine 5 mg tablet 5 mg PO DAILY aspirin 81 mg tablet 81 mg PO DAILY atorvastatin 80 mg tablet 40 mg PO DAILY pantoprazole 20 mg tablet,delayed release (DR/EC) 20 mg PO DAILY nitroglycerin 0.4 mg tablet, sublingual 0.4 mg sublingual ONCE PRN (Reason: chest pain) Rx Instructions: as a single dose; administer 5-10 minutes before situation known to precipitate angina attack Referrals: Didier Mohamud MD [Primary Care Provider, Family Practice] Stand Alone Forms: Patient Portal/API
--- NOTE | 2025-03-18 04:51 | EKG_ITS ---
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
--- NOTE | 2025-03-18 05:04 | DI.RAD.S_ITS ---
PROCEDURE: XR CHEST 1V INDICATIONS: dyspnea, hx of COPD TECHNIQUE: One view of the chest was acquired. COMPARISON: [facility], CR, XR CHEST 1V, 09/12/2024, 0:55. FINDINGS: Surgical changes and devices: Prosthetic aortic valve is seen. Lungs and pleura: Ill-defined airspace opacities are noted in bilateral lower lung flores more prominent on the left side. There is blunting of left costophrenic angle suggestive of small left pleural effusion. No pneumothorax. Mediastinum: Mediastinal contours appear normal. Heart size is enlarged. Bones and chest wall: No suspicious bony lesions. Overlying soft tissues appear unremarkable. IMPRESSION: Small left pleural effusion with bibasilar infiltrate and atelectasis. Clinical correlation and follow-up is recommended. No pneumothorax. No discrepancies. Dictated by: Joby Self M.D. on 03/18/2025 at 9:02 Approved by: Joby Self M.D. on 03/18/2025 at 9:03
[2025-03-18] MEDS: ALBUTEROL/IPRATROPIUM 3 ML AMPUL INH ×2 (05:05→05:07)
--- NOTE | 2025-03-18 05:10 | PC.NURSE ---
Imaging at bedside
[2025-03-18] MEDS: ASPIRIN 81 MG CHEW TAB 324 MG PO (05:15)
[2025-03-18] MEDS: AMLODIPINE 5 MG TABLET PO (05:15)
[2025-03-18 05:16] LABS: Add Manual Diff / Slide Review NO; Hematocrit 36.1 % (41-53); Hemoglobin 12.1 g/dL (13.5-17.5); Lymphocytes Absolute Auto 900 /uL (1100-4500); Mean Corpuscular HGB Conc 33.5 % (30-36); Mean Corpuscular Hemoglobin 32.2 PG (26-34); Mean Corpuscular Volume 96.2 fL (80-100); Platelet Count 266 X10^3/uL (150-400)
[2025-03-18] MEDS: NITROGLYCERIN 0.4 MG SL TAB SL ×3 (05:20→05:33)
[2025-03-18 05:28] LABS: Alanine Aminotransferase 20 IU/L (<50); Albumin 4.2 g/dL (3.5-5.0); Albumin Globulin Ratio 1.3 (1.0-2.8); Alkaline Phosphatase 74 U/L (38-126); Blood Urea Nitrogen 11 mg/dL (9-20); Calcium 10.9 mg/dL (8.4-10.2); Carbon Dioxide 31 mmol/L (22-32); Chloride 103 mmol/L (98-107); Estimated Glomerular Filt Rate > 60 mL/min (>60); Ethanol (ETOH) < 10 mg/dL (<10); Globulin 3.3 g/dL (1.7-4.1); Glucose 97 mg/dL (70-99); HEMOLYSIS < 15 (0-50); Potassium 3.9 mmol/L (3.4-5.1); Sodium 139 mmol/L (137-145); Total Protein 7.5 g/dL (6.3-8.2)
[2025-03-18 05:39] LABS: NT-proBNP (BNP-Adult 18+) 1300 pg/mL (<125); Troponin I 0.038 ng/mL (0.01-0.034)
--- NOTE | 2025-03-18 05:56 | DI.CT.S_ITS ---
PROCEDURE: CT ANGIO CHEST PE PROTOCOL INDICATIONS: acute dyspnea, elevated d dimer TECHNIQUE: After the administration of intravenous contrast, 2 mm thick sections acquired from the pulmonary apices to the posterior costophrenic angles. 3-dimensional maximum intensity projection (MIP) coronal and sagittal reformats were then acquired through the thorax. For radiation dose reduction, the following was used: automated exposure control, adjustment of mA and/or kV according to patient size. COMPARISON: [facility], CT, CT ANGIO CHEST PE PROTOCOL, 04/10/2024, 5:13. FINDINGS: Image quality: Diagnostic. Pulmonary arteries: Pulmonary arteries are normal in size, and demonstrate no intraluminal filling defects to suggest central pulmonary embolism. Lower Neck: No enlarged lymph nodes. Thyroid: No thyroid nodules which require sonographic follow up, per consensus guidelines. Axillae: No enlarged lymph nodes. Chest Wall: Unremarkable. Bones: No aggressive appearing bony lesions. Lungs and Pleura: Moderate right greater than left bilateral pleural effusion with compressive atelectasis in posterior aspect of bilateral lung flores. Superimposed underlying infiltrates cannot be excluded. No pneumothorax. Hazy ground-glass opacities are seen scattered in bilateral lung flores. Central and peripheral airway is patent. Heart: Heart size is enlarged. No pericardial effusion. Prosthetic aortic valve is seen. Thoracic Vessels: No aortic aneurysm. Moderate three-vessel coronary artery atherosclerotic calcifications. Mediastinum and Malorie: Mildly enlarged mediastinal lymph nodes measures up to 1.1 cm in size in right paratracheal space. Esophagus: No wall thickening. Small hiatal hernia. Upper Abdomen: Visualized upper abdomen solid organs and bowel loops appear normal. IMPRESSION: 1. No pulmonary embolus. No thoracic aortic aneurysm or gross dissection. 2. Moderate right greater than left bilateral pleural effusion with bilateral lower lobe infiltrates and atelectasis. Hazy ground-glass opacities in rest of bilateral aerated lung flores suggestive of pulmonary edema. No pneumothorax. 3. Cardiomegaly, no pericardial effusion. Mildly enlarged mediastinal lymph nodes likely reactive in nature. Moderate three-vessel coronary artery atherosclerotic calcifications. Dictated by: Joby Self M.D. on 03/18/2025 at 9:46 Approved by: Joby Self M.D. on 03/18/2025 at 9:53
--- NOTE | 2025-03-18 06:06 | PC.NURSE ---
Pt to imaging via ED stretcher with clinical lab technologist
[2025-03-18] MEDS: FUROSEMIDE 60 MG in SODIUM CHLORIDE 0.9% 50 ML 112 MG IV (07:13)
== END 2025-03-18 07:58 | disposition home or self-care (01) ==
PROVIDERS: Emergency Provider Emergency Medicine; PCP Family Medicine
DX: I50.9 Heart failure, unspecified (principal); Z95.2 Presence of prosthetic heart valve; Z86.79 Personal history of other diseases of the circulatory system
CPT/HCPCS: 36415; 71045; 71275; 80053; 80320; 83880; 84484; 85025; 85379; 93005; 93010; 94640; 96374; 96375; 99285; J1938; J2919; Q9967

== ENCOUNTER → 2025-04-07 10:00 | Outpatient (CLI) | payer MEDICARE, OTHER, SELFPAY ==
[2025-04-07 10:31] LABS: Hematocrit 34.3 % (41-53); Hemoglobin 11.5 g/dL (13.5-17.5); Mean Corpuscular HGB Conc 33.6 % (30-36); Mean Corpuscular Hemoglobin 32.3 PG (26-34); Mean Corpuscular Volume 95.9 fL (80-100); Platelet Count 295 X10^3/uL (150-400)
[2025-04-07 11:09] LABS: Alanine Aminotransferase 19 IU/L (<50); Albumin 3.7 g/dL (3.5-5.0); Albumin Globulin Ratio 1.3 (1.0-2.8); Alkaline Phosphatase 93 U/L (38-126); Blood Urea Nitrogen 15 mg/dL (9-20); Calcium 9.5 mg/dL (8.4-10.2); Carbon Dioxide 28 mmol/L (22-32); Chloride 103 mmol/L (98-107); Estimated Glomerular Filt Rate > 60 mL/min (>60); Globulin 2.8 g/dL (1.7-4.1); Glucose 105 mg/dL (70-99); HEMOLYSIS < 15 (0-50); Potassium 3.9 mmol/L (3.4-5.1); Sodium 136 mmol/L (137-145); Total Protein 6.5 g/dL (6.3-8.2)
== END ==
PROVIDERS: Specialist/Technologist Athletic Trainer; PCP Family Medicine; Referring Provider Student in an Organized Health Care Education/Training Program; Visit Provider Student in an Organized Health Care Education/Training Program
DX: L40.50 Arthropathic psoriasis, unspecified (principal)
CPT/HCPCS: 36415; 80053; 85027; 85651; 86140

== ENCOUNTER 2025-04-08 09:02 | Inpatient (IN) | payer MEDICARE, OTHER, SELFPAY ==
[2025-04-08] VITALS (19 sets, daily range): BP systolic 108–159; BP diastolic 60–86; PULSE 74–91; RESP 16–21; TEMP 36.4–37; O2SAT 90–98; BMI 29.4; BMI 29.0
[2025-04-08] MEDS: ALBUTEROL/IPRATROPIUM 3 ML AMPUL INH (09:29)
--- NOTE | 2025-04-08 09:31 | EKG_ITS ---
[address] [address] Test Date: 2025-04-08 Pat Name: Trevor Hernandez Department: Room: Gender: Male Crm Functional Analyst: JAYLIN : 1955 Requested By: Order Number: [id number] Reading MD: Randy Moncada Measurements Intervals [place] Rate: 78 P: 18 WY: 182 QRS: -10 QRSD: 166 T: 135 QT: 446 QTc: 508 Interpretive Statements Sinus rhythm with premature atrial complexes Left bundle branch block Electronically Signed On 04-16-2025 13:53:33 PDT by Randy Moncada
--- NOTE | 2025-04-08 09:32 | ED.SOB ---
HPI - SOB/Dyspnea General Chief Complaint: Shortness of Breath/Dyspnea Stated Complaint: SOB Sent from [facility] Time Seen by Provider: 04/08/25 09:05 Mode of arrival: Ambulatory History of Present Illness HPI Narrative: Please see ER visit here notes March 18, 2025 for CHF/shortness of breath. Patient sent here from pulmonary rehab department for shortness of breath. 84% room air on ambulation. Patient was here yesterday and was not quite as dyspneic. Patient does have history of CHF COPD. History of pneumonia in the past. Respiratory therapist brought patient over here for evaluation and treatment. DuoNeb has been started. VBG ordered. Solu-Medrol ordered. Patient denies any limb edema. Patient just here March 18 for the same and discharged home after diuresis in the emergency department. She has known history of left bundle branch block. Discussion: 69-year-old gentleman with a history of congestive heart failure, COPD, aortic valve replacement, mitral valve issues comes in with acute onset severe dyspnea wheeze, tachypnea at 3:00 a.m.. D-dimer was elevated and CT scan does not show pulmonary embolism. No evidence of acute coronary syndrome, however CT scan and blood work to suggest volume overload as the source of his acute dyspnea. In the emergency department he is given 60 mg of IV furosemide. He notes that he currently is taking 40 mg daily. We will ask him to increase to 40 mg in the morning and noon for the next 5 days and then returned to his usual 40 mg. We will encourage him to continue with his cardiopulmonary rehab. I will also also asked him to follow up with his primary care physician to make sure that his breathing is improved, his pulmonary congestion is improving and make sure that going back to just 40 mg of furosemide daily is going to be safe and appropriate. There was no indication for hospitalization today and he is safe for discharge Related Data Home Medications ?Medication ?Instructions ?Recorded ?Confirmed amlodipine 5 mg tablet 5 mg PO DAILY for high BP 12/21/20 04/08/25 aspirin 81 mg tablet 81 mg PO DAILY for CV prophylaxis 12/21/20 04/08/25 atorvastatin 80 mg tablet 40 mg PO DAILY 12/21/20 04/08/25 nitroglycerin 0.4 mg sublingual 0.4 mg sublingual ONCE PRN chest 12/21/20 04/08/25 tablet pain pantoprazole 20 mg tablet,delayed 20 mg PO DAILY on empty stomach 12/21/20 04/08/25 release [employer] Auto CPAP 05/17/21 04/08/25 calcipotriene 0.005 1 applic topical BID 03/21/22 04/08/25 %-betamethasone 0.064 % topical cream cholecalciferol (vitamin D3) 50 50 mcg PO DAILY 03/21/22 04/08/25 mcg (2,000 unit) capsule (Vitamin D3) clobetasol 0.05 % topical cream 1 applic topical BID 03/21/22 04/08/25 folic acid 1 mg tablet 2 mg PO DAILY 03/21/22 04/08/25 methotrexate sodium 2.5 mg tablet 15 mg PO QWEEK 03/21/22 04/08/25 metoprolol tartrate 50 mg tablet 50 mg PO DAILY 02/04/25 04/08/25 potassium chloride 20 mEq 20 meq PO DAILY 02/04/25 04/08/25 tablet,extended release telmisartan 40 mg tablet 40 mg PO DAILY 02/04/25 04/08/25 amoxicillin See Rx Instructions .Route .COMPLEX 04/08/25 04/08/25 furosemide 20 mg tablet (Lasix) 40 mg PO DAILY 04/08/25 04/08/25 Previous Rx's ?Medication ?Instructions ?Recorded empagliflozin 10 mg tablet 10 mg PO DAILY #30 tabs 04/21/24 (Jardiance) inhalational spacing device #1 ea 07/24/24 (Aerochamber MV spacer) azithromycin 250 mg tablet See Rx Instructions PO .COMPLEX #6 09/12/24 tabs albuterol sulfate 90 mcg/actuation 2 puff inhalation Q4-6H PRN 11/05/24 aerosol inhaler shortness of breath or wheezing #8.5 grams tiotropium 2.5 mcg-olodaterol 2.5 2 puff inhalation DAILY #4 grams 12/03/24 mcg/actuation mist for inhalation (Stiolto Respimat) Allergies Allergy/AdvReac Type Severity Reaction Status Date / Time lisinopril Allergy Verified 04/08/25 09:27 Review of Systems Review of Systems Narrative: GENERAL: Negative chills, fatigue, malaise, fever, sweats. 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) Allergic rhinosinusitis GERD (gastroesophageal reflux disease) Ischemic heart disease Snoring Primary insomnia Obstructive sleep apnea of adult Hypertension Hyperlipidemia Surgical History History of heart artery stent Family History Brother Hx of CABG Social History marital status: details: alfonso Misty, lives in [place] household members: spouse lives independently: Yes caregiver/support person: No housing: house 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 EYES: Pupils equal round ENT: Mucous membranes moist. NECK: Trachea midline. CARDIOVASCULAR: Regular rate and rhythm RESPIRATORY: Patient has bibasilar rales and some wheezing. Speaking full sentences. GASTROINTESTINAL: Abdomen soft, non-tender EXTREMITIES: No gross deformities. No ankle edema bilaterally BACK: No flank tenderness. NEURO: AOx4. Clear speech SKIN: Warm and dry PSYCH: Not anxious, is cooperative Initial Vital Signs Initial Vital Signs: Vital Signs Temperature 98.6 F 04/08/25 09:05 Pulse Rate 89 04/08/25 09:05 Respiratory Rate 20 04/08/25 09:05 Blood Pressure 127/61 04/08/25 09:05 Pulse Oximetry 92 04/08/25 09:05 Oxygen Delivery Method Room Air 04/08/25 09:05 Course Orders Ordered: ED Orders 04/08/25 11:06 Troponin & CK Cardiac Panel Stat Hydrocodone Bitart/Acetaminophen (Hydrocodone/Acet 5/325 Tablet) 1 tab PO Q4H PRN PRN Reason: Pain, Moderate (4-6) Albuterol (Albuterol 2.5 Mg/3 Ml Neb (Adult)) 2.5 mg INH [id number] [facility] Last Admin: 04/08/25 18:25 Dose: 2.5 mg Documented By: Admin: 04/08/25 15:50 Dose: 2.5 mg Documented By: HEBER Albuterol (Albuterol 2.5 Mg/3 Ml Neb (Adult)) 2.5 mg INH Q2H PRN PRN Reason: Shortness Of Breath Amlodipine Besylate (Amlodipine 5 Mg Tablet) 5 mg PO DAILY [facility] Last Admin: 04/08/25 15:44 Dose: 5 mg Documented By: LESA Aspirin (Aspirin Ec 81 Mg Tablet) 81 mg PO DAILY [facility] Atorvastatin Calcium (Atorvastatin 20 Mg Tablet) 40 mg PO DAILY [facility] Clobetasol Propionate (Clobetasol 0.05% Cream 15 Gm) 1 applic TOP BID [facility] Folic Acid (Folic Acid 1 Mg Tablet) 2 mg PO DAILY [facility] Heparin Sodium (Porcine) (Heparin 5,000 Unit/Ml Vial) 5,000 unit SUBCUT BID [facility] Furosemide 60 mg/ Sodium (Chloride) 56 mls @ 112 mls/hr IV BIDWM [facility] Last Infusion: 04/08/25 16:23 Dose: Infused Documented By: Admin: 04/08/25 15:43 Dose: 112 mls/hr Documented By: LESA Losartan Potassium (Losartan 50 Mg Tablet) 50 mg PO DAILY [facility] Metoprolol Tartrate (Metoprolol Ir 50 Mg Tablet) 50 mg PO DAILY [facility] Naloxone HCl (Naloxone 0.4 Mg/Ml Vial) 0.2 mg IV Q2MIN PRN PRN Reason: Opiate Reversal Nitroglycerin (Nitroglycerin 0.4 Mg Sl Tab) 0.4 mg SL [id number] PRN PRN Reason: Chest Pain Calcipotriene- Betamethasone 0.005- 0.064 % Cream 1 applictn TOP BID [facility] Empagliflozin [ Jardiance] 10 Mg Tablet 10 mg PO DAILY [facility] Ondansetron HCl (Ondansetron 4 Mg/2 Ml Inj) 4 mg IV Q8HR PRN PRN Reason: Nausea And Vomiting Oxycodone HCl (Oxycodone Ir 10 Mg Tablet) 10 mg PO Q3H PRN PRN Reason: Pain, Severe (7-10) Pantoprazole Sodium (Pantoprazole Dr 20 Mg Tablet) 20 mg PO DAILY FERNANDO Potassium Chloride (Potassium Chloride 20 Meq Tab) 20 meq PO DAILY FERNANDO Vitamin D (Cholecalciferol (Vitamin D3) 1,000 Unit Tablet) 2,000 unit PO DAILY FERNANDO Discontinued Medications Albuterol (Albuterol 2.5 Mg/3 Ml Neb (Adult)) 2.5 mg INH Q4H PRN PRN Reason: Shortness Of Breath Albuterol/Ipratropium (Albuterol/Ipratropium 3 Ml Ampul) 3 ml INH NOW ONE Stop: 04/08/25 09:25 Last Admin: 04/08/25 09:29 Dose: 3 ml Documented By: HEBER Furosemide (Furosemide 40 Mg/4 Ml Vial) 20 mg IV NOW ONE Stop: 04/08/25 11:00 Last Admin: 04/08/25 11:34 Dose: 20 mg Documented By: LILIANA Methylprednisolone (Methylprednisolone 125 Mg/2 Ml Vial) 125 mg IV NOW ONE Stop: 04/08/25 09:31 Last Admin: 04/08/25 09:42 Dose: 125 mg Documented By: JIMMIE Non-Formulary Medication (Tiotropium-Olodaterol [Stiolto Respimat]) 2 puff INHALATION DAILY FERNANDO Vital Signs Vital signs: Vital Signs - 8 hr 04/08/25 11:37 04/08/25 11:37 04/08/25 12:00 Pulse Rate 81 84 Blood Pressure 150/75 H Pulse Oximetry 91 91 04/08/25 12:30 Pulse Rate 80 Blood Pressure Pulse Oximetry 91 MDM - SOB/Dyspnea Lab Data 04/08/25 09:24 04/08/25 09:24 Labs: Lab Results 04/08/25 04/08/25 04/08/25 Range/Units 09:24 09:36 11:06 WBC 6.9 (4.5-11.0) X10^3/uL RBC 3.64 L (4.5-5.9) X10^6/uL Hgb 11.7 L (13.5-17.5) g/dL Hct 35.1 L (41-53) % MCV 96.2 (80-100) fL MCH 32.1 (26-34) PG MCHC 33.3 (30-36) % RDW 17.1 H (11.6-14.8) % Plt Count 297 (150-400) X10^3/uL Neut % (Auto) 80.8 H (50-75) % Lymph % (Auto) 8.4 L (25-40) % [place] % (Auto) 8.9 (3-14) % Eos % (Auto) 1.2 L (2-4) % Baso % (Auto) 0.7 (0-2) % Neut # (Auto) 5600 (4722-8920) /uL Lymph # (Auto) 600 L (0736-9349) /uL [place] # (Auto) 600 (0-900) /uL Eos # (Auto) 100 (0-450) /uL Baso # (Auto) 0 (0-100) /uL PT 12.4 (9.4-12.5) SECONDS INR 1.1 (0.9-1.3) APTT 34 (25.1-36.5) SECONDS VBG pH 7.45 H (7.33-7.43) VBG pCO2 39.4 L (45-50) mmHg VBG pO2 54 H (35-45) mmHg VBG HCO3 27 (24-28) mmol/L VBG Total CO2 26 (24-29) mmol/L VBG O2 Saturation 89 H (70-75) % VBG Base Excess 3.1 (0-4) mmol/L Sodium 137 (137-145) mmol/L Potassium 3.8 (3.4-5.1) mmol/L Chloride 102 (98-107) mmol/L Carbon Dioxide 27 (22-32) mmol/L BUN 13 (9-20) mg/dL Creatinine 0.82 (0.66-1.25) mg/dL Estimated GFR > 60 (>60) mL/min BUN/Creatinine Ratio 15.9 (6-22) Glucose 113 H (70-99) mg/dL Lactate 0.9 (0.7-2.1) mmol/L Calcium 9.6 (8.4-10.2) mg/dL Total Bilirubin 1.1 (0.2-1.3) mg/dL AST 44 (17-59) IU/L ALT 20 (<50) IU/L Alkaline Phosphatase 78 (38-126) U/L Total Creatine Kinase 76 64 (55-170) U/L Troponin I 0.063 H 0.061 H (0.01-0.034) ng/mL NT-Pro-B Natriuret Pep 1820 H (<125) pg/mL Total Protein 7.5 (6.3-8.2) g/dL Albumin 4.3 (3.5-5.0) g/dL Globulin 3.2 (1.7-4.1) g/dL Albumin/Globulin Ratio 1.3 (1.0-2.8) Imaging Data Chest x-ray: Radiologist's Impression: [address] [address] XRay Report Signed Patient: Trevor Hernandez MR#: [id number] : 1955 Acct:[id number] Age/Sex: 69 / M Date of Service: 04/08/25 Loc: ED Accession Number: [id number] Procedure: XR chest 1V Ordering Provider: Ethan Steve MD PROCEDURE: XR CHEST 1V INDICATIONS: Shortness of breath TECHNIQUE: One view of the chest was acquired. COMPARISON: [facility], , XR CHEST 1V, 03/18/2025, 5:03. FINDINGS: Surgical changes and devices: Prosthetic heart valve is seen. Lungs and pleura: There is small to moderate bilateral pleural effusion and bibasilar infiltrate/atelectasis. Mild pulmonary vascular congestion is also noted. No pneumothorax. Mediastinum: Mediastinal contours appear normal. Heart size is enlarged. Bones and chest wall: No suspicious bony lesions. Overlying soft tissues appear unremarkable. IMPRESSION: Congestive changes and small to moderate bilateral pleural effusion. Suggestion of pulmonary edema. Bilateral lower lobe infiltrate/atelectasis also seen. No pneumothorax. Dictated by: Joby Self M.D. on 04/08/2025 at 9:48 Approved by: Joby Self M.D. on 04/08/2025 at 9:51 MDM Narrative Medical decision making narrative: Patient sent here from pulmonary rehab department for shortness of breath. 84% room air on ambulation. Patient was here yesterday and was not quite as dyspneic. Patient does have history of CHF COPD. History of pneumonia in the past. Respiratory therapist brought patient over here for evaluation and treatment. DuoNeb has been started. VBG ordered. Solu-Medrol ordered. Patient denies any limb edema. Patient just here March 18 for the same and discharged home after diuresis in the emergency department. She has known history of left bundle branch block. MDM After history and exam, CBC CMP EKG chest x-ray DuoNeb VBG Solu-Medrol BNP Lasix Differential considered: Includes but not limited to CHF COPD STEMI non-STEMI Medical records reviewed: March 18, 2025 ER visit here, multiple troponin lab results patient always has elevated troponin. Patient has no chest pain today. Lab Test results independently reviewed as above. Pertinent findings: WBC 6.9 hemoglobin 11.7 INR 1.1 VBG 7.45, 39.4, 54, 89%. Sodium 137 potassium 3.8 BUN 13 creatinine 0.82 glucose 113 troponin 0.063 BNP 1820, repeat troponin 0.061 Independently reviewed EKG left bundle-branch block sinus rhythm rate 78 Imaging studies independently reviewed: Chest x-ray pleural effusions Consultations: 11:22 a.m.. Spoke with Cardiology, dr east, patient to be admitted here diuresed and can follow up with his comb setter dr alcantar, for further management of his mitral valve. Troponin is at baseline for patient. No heparin indicated at this time. Patient can follow up in the office after admission to have referral for mitral valve repair 12:42 p.m.. Spoke with hospitalist, dr holm, will admit patient. Re-evaluations: 11:06 a.m.. Patient agrees for admission for CHF COPD exacerbation. 12:42 p.m.. Patient states that his comb setter is going to refer him to [facility] for mitral valve repair. He does agree for admission here for CHF exacerbation. He has already started urinating with IV Lasix given to him. Discussion: Appropriate for admission for CHF exacerbation. Will need diuresis. Troponin is at baseline. Always has elevated troponin likely from cardiac demand. Patient has no chest pain. Patient agrees for admission. Diagnosis: CHF exacerbation COPD exacerbation Discharge Plan Departure Patient Disposition: Admitted as Observation Clinical Impression: Congestive heart failure Qualifiers: Heart failure type: unspecified Heart failure chronicity: acute on chronic Qualified Code(s): I50.9 - Heart failure, unspecified Admit Date/Time: 04/08/25 12:42 Admit Provider: Luca Holm
[2025-04-08 09:40] LABS: Base Excess VBG 3.1 mmol/L (0-4); HCO3 VBG 27 mmol/L (24-28); Oxygen Saturation VBG 89 % (70-75); PCO2 VBG 39.4 mmHg (45-50); PO2 VBG 54 mmHg (35-45); Total CO2 VBG 26 mmol/L (24-29); pH VBG 7.45 (7.33-7.43)
[2025-04-08 09:44] LABS: Add Manual Diff / Slide Review NO; Hematocrit 35.1 % (41-53); Hemoglobin 11.7 g/dL (13.5-17.5); Lymphocytes Absolute Auto 600 /uL (1100-4500); Mean Corpuscular HGB Conc 33.3 % (30-36); Mean Corpuscular Hemoglobin 32.1 PG (26-34); Mean Corpuscular Volume 96.2 fL (80-100); Platelet Count 297 X10^3/uL (150-400)
[2025-04-08 09:45] LABS: INR 1.1 (0.9-1.3); Prothrombin Time 12.4 SECONDS (9.4-12.5)
[2025-04-08 09:48] LABS: PTT Partial Thromboplastin Tim 34 SECONDS (25.1-36.5)
[2025-04-08 09:49] LABS: Alanine Aminotransferase 20 IU/L (<50); Albumin 4.3 g/dL (3.5-5.0); Albumin Globulin Ratio 1.3 (1.0-2.8); Alkaline Phosphatase 78 U/L (38-126); Blood Urea Nitrogen 13 mg/dL (9-20); Calcium 9.6 mg/dL (8.4-10.2); Carbon Dioxide 27 mmol/L (22-32); Chloride 102 mmol/L (98-107); Creatine Kinase 76 U/L (55-170); Estimated Glomerular Filt Rate > 60 mL/min (>60); Globulin 3.2 g/dL (1.7-4.1); Glucose 113 mg/dL (70-99); HEMOLYSIS < 15 (0-50); Lactate (Lactic Acid) 0.9 mmol/L (0.7-2.1); Potassium 3.8 mmol/L (3.4-5.1); Sodium 137 mmol/L (137-145); Total Protein 7.5 g/dL (6.3-8.2)
[2025-04-08 10:01] LABS: NT-proBNP (BNP-Adult 18+) 1820 pg/mL (<125); Troponin I 0.063 ng/mL (0.01-0.034)
--- NOTE | 2025-04-08 10:53 | PC.NURSE ---
Pt states that he feels like it is easier to breathe after neb tx. A&Ox4.
[2025-04-08 11:26] LABS: Creatine Kinase 64 U/L (55-170)
[2025-04-08] MEDS: FUROSEMIDE 40 MG/4 ML VIAL 20 MG IV (11:34)
[2025-04-08 11:39] LABS: Troponin I 0.061 ng/mL (0.01-0.034)
--- NOTE | 2025-04-08 14:05 | PM.HP.1 ---
History of Present Illness History of Present Illness Chief complaint: SOB Sent from [facility] Narrative: Chief complaint: Shortness for breath hypoxia secondary to acute on chronic congestive heart failure History of present illness: 04-08: 69-year-old male with mitral regurgitation with progressive episodes and of pulmonary edema and exacerbation of congestive heart failure that have been increasing in frequency over the past 6 weeks after receiving a prosthetic bio aortic valve. Patient was in cardiac rehab and developed increasing dyspnea was sent to the emergency room for evaluation. In the emergency department findings were significant for bilateral pulmonary edema with cephalization of vessels and bilateral pleural effusions on chest x-ray. Troponin was 0.62 which is chronic for this patient and brain natriuretic peptide was 1800 Emergency room course: 11:22 a.m.. ED physician Spoke with Cardiology, dr vega, patient to be admitted here diuresed and can follow up with his medical planner dr alcantar, for further management of his mitral valve. Troponin is at baseline for patient. No heparin indicated at this time. Patient can follow up in the office after admission to have referral for mitral valve repair 12:42 p.m.. Spoke with hospitalist, dr holm, will admit patient. Re-evaluations: 11:06 a.m.. Patient agrees for admission for CHF COPD exacerbation. 12:42 p.m.. Patient states that his medical planner is going to refer him to [facility] for mitral valve repair. He does agree for admission here for CHF exacerbation. He has already started urinating with IV Lasix given to him. Discussion: Appropriate for admission for CHF exacerbation. Will need diuresis. Troponin is at baseline. Always has elevated troponin likely from cardiac demand. Echocardiogram 05/02 The left ventricle is mildly dilated. The ejection fraction is estimated to be 45-50%. There is apical akinesis. Grade II diastolic dysfunction. The left atrium is severely dilated. The right ventricle is normal in size and function. The right atrium is mildly dilated. There is severe mitral regurgitation. There is a well-seated aortic bioprosthetic valve with a moderate paravalvular leak and a peak velocity of 3.1 m/s. There is moderate to severe tricuspid regurgitation. The right ventricular systolic pressure is estimated to be at least 62 mmHg based on an estimated right atrial pressure of 8 mm Hg. Compared to the prior study dated 04/10/2024, there is been an increase in the tricuspid regurgitation. Review of systems: No fevers or chills No headache diplopia No nausea vomiting diarrhea No urinary symptoms No paresthesia paresis No unusual weight Lasix only gone No ankle swelling Physical exam: Elderly male in no acute distress alert pleasant cogent mildly labored respirations on room air HEENT unremarkable Neck 3 cm JVD Heart sounds difficult to auscultate muffled and distant Lungs have crackles from lower half and diminished sound transmission at bases Abdomen benign Extremities no edema For objective laboratory and imaging data please see the bottom of the note: Assessment and plan: Acute diastolic and valvular congestive heart failure following bioprosthetic aortic valve placement followed by Dr. 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) Allergic rhinosinusitis GERD (gastroesophageal reflux disease) Ischemic heart disease Snoring Primary insomnia Obstructive sleep apnea of adult Hypertension Hyperlipidemia Surgical History History of heart artery stent Family History Brother Hx of CABG Social History marital status: details: alfonso Misty, lives in [place] household members: spouse lives independently: Yes caregiver/support person: No housing: house coral/oriental orthodox: Mandaeism Smoking Status: Former smoker alcohol intake: current substance use type: does not use Meds Home Medications and Allergies Home Medications ?Medication ?Instructions ?Recorded ?Confirmed ?Type amlodipine 5 mg tablet 5 mg PO DAILY for high BP 12/21/20 04/08/25 History aspirin 81 mg tablet 81 mg PO DAILY for CV prophylaxis 12/21/20 04/08/25 History atorvastatin 80 mg tablet 40 mg PO DAILY 12/21/20 04/08/25 History nitroglycerin 0.4 mg sublingual 0.4 mg sublingual ONCE PRN chest 12/21/20 04/08/25 History tablet pain pantoprazole 20 mg tablet,delayed 20 mg PO DAILY on empty stomach 12/21/20 04/08/25 History release DreamStation Auto CPAP 05/17/21 04/08/25 History calcipotriene 0.005 1 applic topical BID 03/21/22 04/08/25 History %-betamethasone 0.064 % topical cream cholecalciferol (vitamin D3) 50 50 mcg PO DAILY 03/21/22 04/08/25 History mcg (2,000 unit) capsule (Vitamin D3) clobetasol 0.05 % topical cream 1 applic topical BID 03/21/22 04/08/25 History folic acid 1 mg tablet 2 mg PO DAILY 03/21/22 04/08/25 History methotrexate sodium 2.5 mg tablet 15 mg PO QWEEK 03/21/22 04/08/25 History empagliflozin 10 mg tablet 10 mg PO DAILY #30 tabs 04/21/24 04/08/25 Rx (Jardiance) inhalational spacing device #1 ea 07/24/24 04/08/25 Rx (Aerochamber MV spacer) azithromycin 250 mg tablet See Rx Instructions PO .COMPLEX #6 09/12/24 04/08/25 Rx tabs albuterol sulfate 90 mcg/actuation 2 puff inhalation Q4-6H PRN 11/05/24 04/08/25 Rx aerosol inhaler shortness of breath or wheezing #8.5 grams tiotropium 2.5 mcg-olodaterol 2.5 2 puff inhalation DAILY #4 grams 12/03/24 04/08/25 Rx mcg/actuation mist for inhalation (Stiolto Respimat) metoprolol tartrate 50 mg tablet 50 mg PO DAILY 02/04/25 04/08/25 History potassium chloride 20 mEq 20 meq PO DAILY 02/04/25 04/08/25 History tablet,extended release telmisartan 40 mg tablet 40 mg PO DAILY 02/04/25 04/08/25 History amoxicillin See Rx Instructions .Route .COMPLEX 04/08/25 04/08/25 History furosemide 20 mg tablet (Lasix) 40 mg PO DAILY 04/08/25 04/08/25 History Allergies Allergy/AdvReac Type Severity Reaction Status Date / Time lisinopril Allergy Verified 04/08/25 09:27 Exam Vital Signs (past 8 hours): - 04/08/25 09:05 04/08/25 09:30 04/08/25 10:30 Temperature 98.6 F Pulse Rate 89 79 74 Respiratory Rate 20 18 Blood Pressure 127/61 Pulse Oximetry 92 94 90 L Oxygen Delivery Method Room Air Room Air Oxygen Flow Rate 0 Fraction of Inspired Oxygen 21 04/08/25 11:00 04/08/25 11:30 04/08/25 11:37 Temperature Pulse Rate 78 80 Respiratory Rate Blood Pressure 150/75 H Pulse Oximetry 90 L 91 Oxygen Delivery Method Oxygen Flow Rate Fraction of Inspired Oxygen 04/08/25 11:37 04/08/25 12:00 04/08/25 12:30 Temperature Pulse Rate 81 84 80 Respiratory Rate Blood Pressure Pulse Oximetry 91 91 91 Oxygen Delivery Method Oxygen Flow Rate Fraction of Inspired Oxygen 04/08/25 13:00 04/08/25 13:18 04/08/25 13:18 Temperature Pulse Rate 84 88 Respiratory Rate Blood Pressure 149/83 H Pulse Oximetry 90 L 90 L Oxygen Delivery Method Oxygen Flow Rate Fraction of Inspired Oxygen Fraction of Inspired Oxygen 21 SaO2/FiO2 Ratio 447 Oxygen Delivery Method Room Air Oxygen Flow Rate 0 Objective Labs 04/08/25 09:24 04/08/25 09:24 Labs: Laboratory Results - last 24 hr 04/08/25 04/08/25 04/08/25 09:24 09:36 11:06 WBC 6.9 RBC 3.64 L Hgb 11.7 L Hct 35.1 L MCV 96.2 MCH 32.1 MCHC 33.3 RDW 17.1 H Plt Count 297 Neut % (Auto) 80.8 H Lymph % (Auto) 8.4 L [place] % (Auto) 8.9 Eos % (Auto) 1.2 L Baso % (Auto) 0.7 Neut # (Auto) 5600 Lymph # (Auto) 600 L [place] # (Auto) 600 Eos # (Auto) 100 Baso # (Auto) 0 PT 12.4 INR 1.1 APTT 34 VBG pH 7.45 H VBG pCO2 39.4 L VBG pO2 54 H VBG HCO3 27 VBG Total CO2 26 VBG O2 Saturation 89 H VBG Base Excess 3.1 Sodium 137 Potassium 3.8 Chloride 102 Carbon Dioxide 27 BUN 13 Creatinine 0.82 Estimated GFR > 60 BUN/Creatinine Ratio 15.9 Glucose 113 H Lactate 0.9 Calcium 9.6 Total Bilirubin 1.1 AST 44 ALT 20 Alkaline Phosphatase 78 Total Creatine Kinase 76 64 Troponin I 0.063 H 0.061 H NT-Pro-B Natriuret Pep 1820 H Total Protein 7.5 Albumin 4.3 Globulin 3.2 Albumin/Globulin Ratio 1.3 Assessment & Plan Time-Based Coding :: [TOTAL MINUTES] spent with patient and on the chart (including review of chart, obtaining history, exam, reviewing outside data, placing orders, documenting exam and treatment plan, and counseling patient) on [DATE]. Quality VTE Deep Vein Thrombosis/Pulmonary Embolism Present on Admission: No
[2025-04-08] MEDS: FUROSEMIDE 60 MG in SODIUM CHLORIDE 0.9% 50 ML 112 MG IV (15:43)
[2025-04-08] MEDS: AMLODIPINE 5 MG TABLET PO (15:44)
[2025-04-08] MEDS: ALBUTEROL 2.5 MG/3 ML NEB (ADULT) INH ×3 (15:50→23:02)
--- NOTE | 2025-04-08 18:54 | PC.NURSE ---
Patient arrives from ED this afternoon. He is A&OX4, VSS, afebrile on RA 02 sats low 90's. He is able to ambulate to BR. He denies dizziness, CP, SOB with short distances. He does express feeling wheezy this afternoon. He is given IV lasix, nebs, placed on telemetry, admission assessment completed. at 18:30 patient had sustained ectopy and AWS ARCHITECT informed MD. New orders placed for Magnesium. Continuous monitoring.
--- NOTE | 2025-04-08 19:07 | EKG_ITS ---
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
[2025-04-08 19:36] LABS: Magnesium 1.5 mg/dL (1.6-2.3)
[2025-04-08] MEDS: MAGNESIUM SULFATE 2 GM/50 ML PIGGYBACK IV (20:12)
[2025-04-08 20:23] LABS: Add Manual Diff / Slide Review NO; Hematocrit 35.8 % (41-53); Hemoglobin 11.9 g/dL (13.5-17.5); Lymphocytes Absolute Auto 200 /uL (1100-4500); Mean Corpuscular HGB Conc 33.2 % (30-36); Mean Corpuscular Hemoglobin 31.7 PG (26-34); Mean Corpuscular Volume 95.5 fL (80-100); Platelet Count 297 X10^3/uL (150-400)
[2025-04-08 20:37] LABS: Alanine Aminotransferase 22 IU/L (<50); Albumin 4.0 g/dL (3.5-5.0); Albumin Globulin Ratio 1.3 (1.0-2.8); Alkaline Phosphatase 76 U/L (38-126); Blood Urea Nitrogen 20 mg/dL (9-20); Calcium 9.0 mg/dL (8.4-10.2); Carbon Dioxide 29 mmol/L (22-32); Chloride 99 mmol/L (98-107); Estimated Glomerular Filt Rate > 60 mL/min (>60); Globulin 3.2 g/dL (1.7-4.1); Glucose 190 mg/dL (70-99); HEMOLYSIS < 15 (0-50); Magnesium 1.5 mg/dL (1.6-2.3); Potassium 3.4 mmol/L (3.4-5.1); Sodium 135 mmol/L (137-145); Total Protein 7.2 g/dL (6.3-8.2)
[2025-04-08 20:49] LABS: Troponin I 0.042 ng/mL (0.01-0.034)
[2025-04-08 21:14] LABS: Thyroid Stimulating Hormone 1.95 uIU/mL (0.47-4.68)
[2025-04-08] MEDS: HEPARIN 5,000 UNIT/ML VIAL 5000 UNIT SUBCUT (22:03)
[2025-04-08] MEDS: POTASSIUM CHLORIDE IN WATER 10 MEQ/100 ML PIGGYBACK 100 MEQ IV (22:17)
[2025-04-09] MEDS: POTASSIUM CHLORIDE IN WATER 10 MEQ/100 ML PIGGYBACK 100 MEQ IV (00:02)
--- NOTE | 2025-04-09 03:14 | PC.NURSE ---
Event note: At 1906 patient showing vtach, EKG completed with dayshift. At 1926 and 1946 patient continuing to run vtach. VENDOR REPRESENTATIVES came to room, patient alert and oriented showing no signs of issues. At 1956 patient had one whole minute of VTach, still AxO4 and conversing with staff normally. Mag rider started and patient transferred to ICU. Dr. Antonio made aware of events.
[2025-04-09 04:52] LABS: MRSA (Nasal) PCR NOT DETECTED (Not Detect)
[2025-04-09 08:00] VITALS: PULSE 82; RESP 20; TEMP 36.4; O2SAT 97
[2025-04-09] MEDS: ALBUTEROL 2.5 MG/3 ML NEB (ADULT) INH (08:00)
[2025-04-09] MEDS: POTASSIUM CHLORIDE 20 MEQ TAB 40 MEQ PO (08:25)
[2025-04-09] MEDS: ATORVASTATIN 20 MG TABLET 40 MG PO (08:25)
[2025-04-09] MEDS: ASPIRIN EC 81 MG TABLET PO (08:26)
[2025-04-09] MEDS: AMLODIPINE 5 MG TABLET PO (08:26)
[2025-04-09] MEDS: METOPROLOL IR 50 MG TABLET PO (08:26)
[2025-04-09] MEDS: LOSARTAN 50 MG TABLET PO (08:26)
[2025-04-09] MEDS: CHOLECALCIFEROL (VITAMIN D3) 1,000 UNIT TABLET 2000 UNIT PO (08:26)
[2025-04-09] MEDS: FOLIC ACID 1 MG TABLET 2 MG PO (08:26)
[2025-04-09] MEDS: PANTOPRAZOLE DR 20 MG TABLET PO (08:27)
[2025-04-09] MEDS: HEPARIN 5,000 UNIT/ML VIAL 5000 UNIT SUBCUT (08:27)
[2025-04-09] MEDS: POTASSIUM CHLORIDE 20 MEQ TAB PO (08:33)
[2025-04-09] MEDS: FUROSEMIDE 60 MG in SODIUM CHLORIDE 0.9% 50 ML 112 MG IV (09:15)
--- NOTE | 2025-04-09 09:15 | CM.DANOTE ---
Initial DCP Assessment Note Pt is a 69 yo male, resident of [place], admitted OBS for further work up of CHF with hypoxia and SOB. PCP: Jose [facility] [place] Payer: [employer] Reviewed chart; Patient lives independently with spouse in [place] and is at his functional and cognitive baseline this morning. No barriers identified at this time to patient's safe discharge home and close outpatient f/u. Social work team will plan to follow clinical course closely in case any DC needs or concerns arise. DEMETRI Rivera Discharge Planning/Care Management CM Discharge Assessment Start: 04/08/25 12:45 Freq: Status: Active Protocol: Document 04/09/25 09:10 MO (Rec: 04/09/25 09:14 MO [id number]) Discharge Planning Assessment Assigned Discharge DEMETRI Bueno Forensic Scientist DPOA/Assigned Jasmin, spouse Designee Name Contact Information [phone] home Advance Directives? No History Provided By Patient,Medical Record Prior Living House Arrangements Household Members spouse Type of Drives own vehicle transporation used prior to admit Independent with ADL Yes 's Is patient alert and Yes oriented? Comment Independent Comment Home Barriers to No Discharge Discharge Plan Home Transportation Family Arrangement Referrals Initiated None needed
[2025-04-09 11:15] VITALS: BP 124/62; PULSE 74; RESP 22; O2SAT 98
--- NOTE | 2025-04-09 11:21 | PC.NURSE ---
0800 - Oxygen removed and patient remained at 93% on room air. Mild SOB on exertion, none at rest, did not desat with exertion. Confirmed IV Lasix administration per Dr. Evans who also stated intentions of discharging patient. SR on tele, no ectopy present. 1045 - Discharge orders received, patient agreeable. Became mildly SOB when getting dressed and gathering belongings. 92% on room air, all other vitals normal. Patient still expressed strong motivation to discharge, Dr. Evans made aware. Brought patient down to 's car at facility entrance via wheelchair.
--- NOTE | 2025-04-09 14:44 | P.DS_ITS ---
History of Present Illness History of Present Illness Date Patient Seen: 04/09/25 Time Patient Seen: 09:03 Chief complaint: SOB Sent from [facility] Narrative: 69-year-old male with mitral regurgitation with progressive episodes and of pulmonary edema and exacerbation of congestive heart failure that have been increasing in frequency over the past 6 weeks after receiving a prosthetic bio aortic valve. Patient was in cardiac rehab and developed increasing dyspnea was sent to the emergency room for evaluation. In the emergency department findings were significant for bilateral pulmonary edema with cephalization of vessels and bilateral pleural effusions on chest x-ray. Troponin was 0.62 which is chronic for this patient and brain natriuretic peptide was 1800 Discharge Providers Provider Date of admission: 04/08/25 12:42 Discharge Date: 04/09/25 Primary care physician: Didier Mohamud MD Discharge provider: Koby Evans MD Summary Hospital Course Discharge Diagnosis: Acute diastolic and valvular congestive heart failure following bioprosthetic aortic valve placement Hospital Course: 1:22 a.m.. ED physician Spoke with Cardiology, dr east, [facility] and can follow up with his construction safety manager dr alcantar, for further management of his mitral valve. Troponin is at baseline for patient. No heparin indicated at this time. Patient can follow up in the office after admission to have referral for mitral valve repair 12:42 p.m.. Spoke with hospitalist, dr holm, will admit patient. Re-evaluations: 11:06 a.m.. Patient agrees for admission for CHF COPD exacerbation. 12:42 p.m.. Patient states that his construction safety manager is going to refer him to [facility] for mitral valve repair. He does agree for admission here for CHF exacerbation. He has already started urinating with IV Lasix given to him. Discussion: Appropriate for admission for CHF exacerbation. Will need diuresis. Troponin is at baseline. Always has elevated troponin likely from cardiac demand. Patient was admitted and underwent diuresis with net 1.8 L volume negative fluid balance during hospitalization. He was feeling significantly improved and interested in discharge home with outpatient follow. Diuretics were changed from furosemide to torsemide with close outpatient follow-up and monitoring advised. Plan for mitral valve repair per cardiology. Echocardiogram 05/02 The left ventricle is mildly dilated. The ejection fraction is estimated to be 45-50%. There is apical akinesis. Grade II diastolic dysfunction. The left atrium is severely dilated. The right ventricle is normal in size and function. The right atrium is mildly dilated. There is severe mitral regurgitation. There is a well-seated aortic bioprosthetic valve with a moderate paravalvular leak and a peak velocity of 3.1 m/s. There is moderate to severe tricuspid regurgitation. The right ventricular systolic pressure is estimated to be at least 62 mmHg based on an estimated right atrial pressure of 8 mm Hg. Compared to the prior study dated 04/10/2024, there is been an increase in the tricuspid regurgitation. Status at Discharge Cognitive/behavioral status at discharge: oriented Functional status at discharge: independent ambulation Overall status at discharge: patient is progressing back to baseline Time Spent with Patient Time spent: Greater than 30 minutes Exam Vital Signs (past 8 hours): - 04/09/25 08:00 04/09/25 08:00 04/09/25 11:15 Temperature 97.6 F Pulse Rate 82 74 Respiratory Rate 20 22 Blood Pressure 124/62 Pulse Oximetry 97 98 Oxygen Delivery Method Nasal Cannula Oxygen Flow Rate 1.5 0 Fraction of Inspired Oxygen 21 SaO2/FiO2 Ratio 457 Oxygen Delivery Method Nasal Cannula Oxygen Flow Rate 0 Narrative Exam Narrative: Male patient in no acute distress alert pleasant cogent mildly labored respirations on room air HEENT unremarkable Neck 1-2 cm JVD Heart sounds regular rate and rhythm Lungs have crackles in bases and diminished sound transmission at bases Abdomen benign Extremities no edema Objective Imaging Chest x-ray 04/08/2025:: Radiologist's impression: Congestive changes and small to moderate bilateral pleural effusion. Suggestion of pulmonary edema. Bilateral lower lobe infiltrate/atelectasis also seen. No pneumothorax. Labs 04/08/25 20:14 04/08/25 20:14 Labs: Laboratory Results - last 24 hr 04/08/25 04/08/25 04/09/25 11:06 20:14 01:37 WBC 6.4 RBC 3.75 L Hgb 11.9 L Hct 35.8 L MCV 95.5 MCH 31.7 MCHC 33.2 RDW 16.8 H Plt Count 297 Neut % (Auto) 93.7 H Lymph % (Auto) 3.5 L [place] % (Auto) 2.6 L Eos % (Auto) 0.0 L Baso % (Auto) 0.2 Neut # (Auto) 6000 Lymph # (Auto) 200 L [place] # (Auto) 200 Eos # (Auto) 0 Baso # (Auto) 0 Sodium 135 L Potassium 3.4 Chloride 99 Carbon Dioxide 29 BUN 20 Creatinine 0.90 Estimated GFR > 60 BUN/Creatinine Ratio 22.2 H Glucose 190 H Calcium 9.0 Magnesium 1.5 L 1.5 L Total Bilirubin 1.0 AST 42 ALT 22 Alkaline Phosphatase 76 Troponin I 0.042 H Total Protein 7.2 Albumin 4.0 Globulin 3.2 Albumin/Globulin Ratio 1.3 TSH 1.95 Nasal Screen MRSA (PCR) Not detected [facility] Medical History Allergic rhinosinusitis GERD (gastroesophageal reflux disease) Hyperlipidemia Hypertension 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 heart 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 Mohamud/Silvia 1 week Discharge orders & Medications Prescriptions: New torsemide 20 mg tablet 40 mg PO DAILY Qty: 60 0RF Continued (DME) Aerochamber MV Spacer See Rx Instructions .ROUTE .MEDSUPPLY Qty: 1 0RF Rx Instructions: As directed Stiolto Respimat 2.5-2.5 mcg/actuation mist 2 puff inhalation DAILY Qty: 4 3RF clobetasol 0.05 % Cream 1 applic TOPICAL BID methotrexate sodium 2.5 mg Tablet 15 mg PO QWEEK Rx Instructions: 2.5MG TABS 3 TABS IN AM 3 TABS IN PM ONCE A WEEK ON FRIDAYS folic acid 1 mg Tablet 2 mg PO DAILY cholecalciferol (vitamin D3) [Vitamin D3] 50 mcg (2,000 unit) Capsule 50 mcg PO DAILY calcipotriene-betamethasone 0.005-0.064 % Cream 1 applic TOPICAL BID azithromycin 250 mg tablet See Rx Instructions .ROUTE .COMPLEX Qty: 6 0RF Patient Comments: TODAY IS DAY 8 OF 10 Rx Instructions: For 250 mg dose pack: take 500 mg today (day 1), then 250 mg for 4 days (days 2-5) Jardiance 10 mg tablet 10 mg PO DAILY Qty: 30 0RF amoxicillin See Rx Instructions .ROUTE .COMPLEX Rx Instructions: 500MG TABS , TAKE x4 TABS PRIOR TO DENTAL TREATMENT; telmisartan 40 mg tablet 40 mg PO DAILY metoprolol tartrate 50 mg tablet 50 mg PO DAILY potassium chloride 20 mEq tablet extended release 20 meq PO DAILY albuterol sulfate 90 mcg/actuation HFA aerosol inhaler 2 puff inhalation Q4-6H PRN (Reason: shortness of breath or wheezing) Qty: 8.5 6RF (DME) DreamStation Auto CPAP See Rx Instructions .Route .MEDSUPPLY Rx Instructions: Min Pressure: 6 Max Pressure: 14 amlodipine 5 mg tablet 5 mg PO DAILY aspirin 81 mg tablet 81 mg PO DAILY atorvastatin 80 mg tablet 40 mg PO DAILY pantoprazole 20 mg tablet,delayed release (DR/EC) 20 mg PO DAILY nitroglycerin 0.4 mg tablet, sublingual 0.4 mg sublingual ONCE PRN (Reason: chest pain) Rx Instructions: as a single dose; administer 5-10 minutes before situation known to precipitate angina attack Discontinued furosemide [Lasix] 20 mg tablet 40 mg PO DAILY Follow up/Referrals: Didier Mohamud MD [Primary Care Provider, Family Practice] Visit Report/Discharge Packet Stand Alone Forms: Patient Portal/API, Stroke Signs & Symptoms Discharge Data Primary Care Provider: Didier Mohamud Quality VTE Deep Vein Thrombosis/Pulmonary Embolism Present on Admission: No MIPS - Admit I confirm the patient?s Advance Care Plan is present, Code status is documented, Surrogate decision maker is in patient?s record [If Yes, STOP here]: Yes MIPS - Meds 'Current medications' to include all prescriptions, [id number] products, herbals, cannabis/cannabidiol products, and vitamin/mineral/dietary (nutritional) supplements. I have utilized all available resources to obtain, update, or review the patient?s current medications. [If Yes, STOP here]: Yes MIPS - DC The patient has a history of heart transplant or Left Ventricular Assist Device (LVAD). If yes, STOP here.: No The patient has current or prior documentation of left ventricular ejection fraction (LVEF) less than or equal to 40%, or moderate or severely depressed left ventricular systolic function.: No A. The patient was prescribed or already taking an Angiotensin-Converting Enzyme (CARMEN) Inhibitor, or Angiotensin Receptor Isabella (ARB).: No B. The patient was prescribed or already taking a beta-isabella. [If Yes to Both A & B, STOP here]: Yes Patient not prescribed/taking CARMEN or ARB, no reason given.: No Patient not prescribed/taking beta-isabella, no reason given.: No PROFEE Charge Codes Discharge inpatient/observation: [id number]
== END 2025-04-09 11:20 | disposition home or self-care (01) | DRG 291 ==
LOC: ED 11:23 → AC 12:48 → ICU 04-09 09:50 → AC 04-09 12:48 → ICU 04-09 12:48
PROVIDERS: Internal Medicine; Admitting Provider Internal Medicine; Emergency Provider Emergency Medicine; PCP Family Medicine; Referring Provider Emergency Medicine; Visit Provider Internal Medicine
DX: I11.0 Hypertensive heart disease with heart failure (principal); I50.33 Acute on chronic diastolic (congestive) heart failure; J44.1 Chronic obstructive pulmonary disease with (acute) exacerbation; I34.0 Nonrheumatic mitral (valve) insufficiency; K21.9 Gastro-esophageal reflux disease without esophagitis; E78.5 Hyperlipidemia, unspecified; I25.9 Chronic ischemic heart disease, unspecified; Z79.631 Long term (current) use of antimetabolite agent; Z95.2 Presence of prosthetic heart valve; Z87.891 Personal history of nicotine dependence; Z95.5 Presence of coronary angioplasty implant and graft
CPT/HCPCS: 36415; 71045; 80053; 82550; 82805; 83605; 83735; 83880; 84443; 84484; 85025; 85027; 85610; 85651; 85730; 86140; 87797; 93005; 94625; 94640; 94762; 96374; 96375; 99284; 99285; G0378; J1644; J1938; J2919; J3475; J7613

== ENCOUNTER → 2025-06-02 09:41 | Outpatient (CLI) | payer MEDICARE, OTHER, SELFPAY ==
[2025-04-08 13:38] VITALS: BMI 29.0
[2025-06-02 11:08] LABS: Blood Urea Nitrogen 16 mg/dL (9-20); Calcium 10.1 mg/dL (8.4-10.2); Carbon Dioxide 29 mmol/L (22-32); Chloride 98 mmol/L (98-107); Estimated Glomerular Filt Rate > 60 mL/min (>60); Glucose 103 mg/dL (70-99); HEMOLYSIS < 15 (0-50); Potassium 4.0 mmol/L (3.4-5.1); Sodium 135 mmol/L (137-145)
== END ==
PROVIDERS: PCP Family Medicine; Referring Provider Student in an Organized Health Care Education/Training Program; Visit Provider Student in an Organized Health Care Education/Training Program
DX: I34.0 Nonrheumatic mitral (valve) insufficiency (principal); I50.43 Acute on chronic combined systolic (congestive) and diastolic (congestive) heart failure
CPT/HCPCS: 36415; 80048

== ENCOUNTER → 2025-06-14 11:28 | Outpatient (CLI) | payer MEDICARE, OTHER, SELFPAY ==
[2025-04-08 13:38] VITALS: BMI 29.0
[2025-06-14 12:40] LABS: Blood Urea Nitrogen 19 mg/dL (9-20); Calcium 10.2 mg/dL (8.4-10.2); Carbon Dioxide 28 mmol/L (22-32); Chloride 96 mmol/L (98-107); Estimated Glomerular Filt Rate > 60 mL/min (>60); Glucose 113 mg/dL (70-99); Magnesium 1.5 mg/dL (1.6-2.3); Potassium 4.2 mmol/L (3.4-5.1); Sodium 135 mmol/L (137-145)
[2025-06-14 12:41] LABS: HEMOLYSIS 105 (0-50)
== END ==
PROVIDERS: PCP Family Medicine; Referring Provider Physician Assistant; Visit Provider Physician Assistant
DX: I50.43 Acute on chronic combined systolic (congestive) and diastolic (congestive) heart failure (principal); I34.0 Nonrheumatic mitral (valve) insufficiency
CPT/HCPCS: 36415; 80048; 83735

== ENCOUNTER → 2025-07-05 10:12 | Outpatient (CLI) | payer MEDICARE, OTHER, SELFPAY ==
[2025-04-08 13:38] VITALS: BMI 29.0
[2025-07-05 12:05] LABS: Blood Urea Nitrogen 18 mg/dL (9-20); Calcium 8.5 mg/dL (8.4-10.2); Carbon Dioxide 30 mmol/L (22-32); Chloride 100 mmol/L (98-107); Estimated Glomerular Filt Rate > 60 mL/min (>60); Glucose 91 mg/dL (70-99); HEMOLYSIS < 15 (0-50); Magnesium 1.9 mg/dL (1.6-2.3); Potassium 4.2 mmol/L (3.4-5.1); Sodium 136 mmol/L (137-145)
== END ==
PROVIDERS: PCP Family Medicine; Referring Provider Family Medicine; Visit Provider Physician Assistant
DX: I50.43 Acute on chronic combined systolic (congestive) and diastolic (congestive) heart failure (principal); I34.0 Nonrheumatic mitral (valve) insufficiency
CPT/HCPCS: 36415; 80048; 83735

== ENCOUNTER → 2025-08-09 11:37 | Outpatient (CLI) | payer MEDICARE, OTHER, SELFPAY ==
[2025-04-08 13:38] VITALS: BMI 29.0
[2025-08-09 13:19] LABS: Add Manual Diff / Slide Review NO; Hematocrit 34.9 % (41-53); Hemoglobin 11.6 g/dL (13.5-17.5); Lymphocytes Absolute Auto 600 /uL (1100-4500); Mean Corpuscular HGB Conc 33.4 % (30-36); Mean Corpuscular Hemoglobin 31.8 PG (26-34); Mean Corpuscular Volume 95.2 fL (80-100); Platelet Count 275 X10^3/uL (150-400)
[2025-08-09 13:36] LABS: Alanine Aminotransferase 40 IU/L (<50); Albumin 4.1 g/dL (3.5-5.0); Albumin Globulin Ratio 1.4 (1.0-2.8); Alkaline Phosphatase 75 U/L (38-126); Blood Urea Nitrogen 26 mg/dL (9-20); Calcium 9.7 mg/dL (8.4-10.2); Carbon Dioxide 30 mmol/L (22-32); Chloride 100 mmol/L (98-107); Estimated Glomerular Filt Rate > 60 mL/min (>60); Globulin 3.0 g/dL (1.7-4.1); Glucose 81 mg/dL (70-99); HEMOLYSIS < 15 (0-50); Potassium 4.1 mmol/L (3.4-5.1); Sodium 138 mmol/L (137-145); Total Protein 7.1 g/dL (6.3-8.2)
== END ==
PROVIDERS: PCP Family Medicine; Referring Provider Specialist/Technologist Athletic Trainer; Visit Provider Specialist/Technologist Athletic Trainer
DX: Z51.81 Encounter for therapeutic drug level monitoring (principal); L40.50 Arthropathic psoriasis, unspecified; Z79.631 Long term (current) use of antimetabolite agent
CPT/HCPCS: 36415; 80053; 85025; 85651; 86140